=== PATIENT | female | born 1935 | race Caucasian/White ===

== ENCOUNTER 2022-06-04 14:29 | Outpatient (CLI) | payer MEDICARE, OTHER, SELFPAY ==
--- NOTE | 2022-06-04 14:53 | XR_ITS ---
WS: [id number] Lumbar spine, 3 views, 06/04/2022 Clinical Data: Lumbar spinal stenosis Comparison: None. Findings: No compression fractures or subluxation is seen. There is degenerative disc narrowing between L4-L5 a nd L5-S1. There is minimal osteoarthritic spurring at L4 and L5. There is diffuse osteoporosis of the lumbar vertebral bodies. The transverse processes and SI joints are normal. There is a minimal levoscoliosis of the lumbar spine. XR/XR lumbar spine 2-3V* [id number] Impression: 1. 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 2. Osteoporosis and minimal levoscoliosis of the lumbar spine.
== END 2022-06-04 14:30 | disposition home or self-care (01) ==
LOC: RAD 14:43
PROVIDERS: PCP Family Medicine; Visit Provider Family Medicine
DX: M48.061 Spinal stenosis, lumbar region without neurogenic claudication; M81.0 Age-related osteoporosis without current pathological fracture; M41.86 Other forms of scoliosis, lumbar region; G45.9 Transient cerebral ischemic attack, unspecified; Z76.89 Persons encountering health services in other specified circumstances; H01.009 Unspecified blepharitis unspecified eye, unspecified eyelid; B07.9 Viral wart, unspecified
CPT/HCPCS: 72100; 80053; 80061; 84443; 85025

== ENCOUNTER 2022-08-13 10:26 | Emergency (ER) | payer MEDICARE, OTHER, SELFPAY ==
[2022-08-13 10:28] VITALS: BP 194/93; PULSE 116; RESP 18; TEMP 36.9; O2SAT 94
[2022-08-13 10:36] VITALS: BP 194/93; O2SAT 92
--- NOTE | 2022-08-13 10:42 | XRR_ITS ---
PROCEDURE INFORMATION: Exam: XR Left Knee Exam date and time: 08/13/2022 10:48 AM Age: 87 years old Clinical indication: Pain; Knee; Left TECHNIQUE: Imaging protocol: Radiologic exam of the left knee. Views: 3 views. COMPARISON: No relevant prior studies available. FINDINGS: Bones/joints: Normal. Soft tissues: Normal. XR/XR knee LT 3V* [id number] IMPRESSION: No acute findings.
--- NOTE | 2022-08-13 10:42 | XR_ITS ---
WS: [id number] Exam: XR chest 1V portable [id number] Date/Time of Exam: 08/13/2022 10:43 AM Reason For Exam: dyspnea/cough No priors. Findings: The lungs are clear and fully expanded. Costophrenic angles are sharp. No infiltrates. Bronchovascula r relief appears normal. Cardiac silhouette is unremarkable. Bony elements are intact. XR/XR chest 1V portable [id number] IMPRESSION: Unremarkable chest radiograph.
[2022-08-13 10:46] VITALS: BP 175/86; BP 187/101; BP 190/116
--- NOTE | 2022-08-13 10:47 | ED_ITS ---
HPI - Fall General: Chief Complaint: Fall Stated Complaint: WEAKNESS/ FALLS Time Seen by Provider: 08/13/22 10:27 Source: patient and family Mode of arrival: EMS History of Present Illness: 87-year-old female presents to the emergency room with complaint of left knee pain. She fell at home a couple of days ago and then evidently was on the toilet today and could not get up had left knee pain her left knee has been bothering her since she fell. In the nurses note it said she fell at 830 this morning but they told me it was a couple of days ago and she just could not get up and get around on it she is also been very weak she denies any chest pain or abdominal pain. No dysuria urgency or frequency no vomiting or diarrhea. No other injury did not strike her head did not lose consciousness. MD complaint: fall Onset (ago): day(s) (+3) Fall from: standing Fall witnessed: yes, by family Place fall occurred: home Loss of consciousness: None Prolonged down time: no Context: tripped/slipped Location of injury - extremities: Left: knee Severity: mild Associated symptoms-after fall: Reports difficulty walking and weakness; Denies abdominal pain, chest pain, confusion, headache(s), hematuria, lightheadedness, neck pain, numbness, short of breath or vertigo Review of Systems Const: Reports: fatigue; Denies: fever(s), chills, body aches, change in appetite or malaise ENMT: Denies: throat pain, ear or mastoid pain, nasal discharge or nasal congestion Card: Denies: chest pain or lightheadedness Resp: Denies: dyspnea, productive cough or non-productive cough GI: Denies: abdominal pain, nausea, vomiting, diarrhea or constipation : Denies: dysuria, urinary frequency, urinary urgency or hematuria Musc: Denies: neck pain Skin/Breast: Denies: rash or pruritus Neuro: Reports: difficulty walking; Denies: headache(s), vertigo or confusion PFS ED PFSH: Family History Other CAD (coronary artery disease) Cancer Social History Smoking and tobacco status: never smoked Alcohol intake: never Adopted: No Caregiver/support person: No Lives independently: No Household members: family Housing: House Physical Exam Const: GENERAL APPEARANCE: cooperative and comfortable ORIENTATION/CONSCIOUSNESS: Yes awake, Yes oriented to person, Yes oriented to place and Yes oriented to time HENMT: COMMON NORMALS: normocephalic, atraumatic and hearing grossly normal bilaterally HEAD & SCALP: normocephalic and atraumatic Resp: COMMON NORMALS: normal respiratory effort, No retractions, No use of accessory muscles and clear to auscultation bilaterally AUSCULTATION: clear to auscultation bilaterally Cardio: COMMON NORMALS: regular rate, regular rhythm and No murmurs present (Cardio) RATE: regular rate RHYTHM: regular rhythm GI: COMMON NORMALS: Soft to palpation and No hepatosplenomegaly present AUSCULTATION: Yes normoactive bowel sounds PALPATION: Yes Soft to palpation, No Tenderness to palpation present (GI), No Guarding due to palpation present (GI) and Yes No hepatosplenomegaly present Extremity: COMMON NORMALS: normal to inspection, capillary refill normal, no clubbing, cyanosis or edema, no calf tenderness and no pedal edema Neuro: SENSORIUM/ORIENTATION: Yes oriented to person, Yes oriented to place and Yes oriented to time Skin: COMMON NORMALS: no rashes or lesions noted GENERAL SKIN EXAM: no rashes or lesions noted Course Vital Signs: Vital signs: Vital Signs Temperature 98.5 F 08/13/22 10:28 Pulse Rate 100 08/13/22 13:10 Respiratory Rate 18 08/13/22 10:28 Blood Pressure 190/116 08/13/22 10:46 Pulse Oximetry 94 08/13/22 13:10 Oxygen Delivery Me thod 08/13/22 13:10 MDM - Fall Medical Decision Making No acute fractures normal exam we will discharge patient home. Blood pressure is elevated start her on Toprol follow-up with her primary care doctor within the week. Reviewed labs imaging and EKG on the chart and reviewed with patient and family. Medical Records I reviewed the patient's medical records. Lab Data I reviewed the patient's lab results. 08/13/22 10:30 08/13/22 10:30 Radiology Impressions Chest X-Ray 08/13/22 10:42 IMPRESSION: Unremarkable chest radiograph. Knee X-Ray 08/13/22 10:42 IMPRESSION: No acute findings. Laboratory Results WBC 7.8 10^3/uL (4.0-10.0) 08/13/22 10:30 RBC 4.14 10^6/uL (4.1-5.3) 08/13/22 10:30 Hgb 13.6 g/dL (11.5-15.3) 08/13/22 10:30 Hct 41.5 % (37.0-47.0) 08/13/22 10:30 MCV 100.2 fl (81-99) H 08/13/22 10:30 MCH 32.9 pg (28.0-34.0) 08/13/22 10:30 MCHC 32.8 g/dL (30.0-36.0) 08/13/22 10:30 RDW 12.8 % (12.1-15.1) 08/13/22 10:30 Plt Count 183 10^3/cmm (130-400) 08/13/22 10:30 MPV 9.9 fL (7.4-10.4) 08/13/22 10:30 Neut % (Auto) 75.7 % 08/13/22 10:30 Lymph % (Auto) 10.7 % 08/13/22 10:30 [place] % (Auto) 12.6 % 08/13/22 10:30 Eos % (Auto) 0.3 % 08/13/22 10:30 Baso % (Auto) 0.4 % 08/13/22 10:30 Neut # (Auto) 5.91 10^3/uL (1.8-7.7) 08/13/22 10:30 Lymph # (Auto) 0.8 10^3/uL (0.8-4.8) 08/13/22 10:30 [place] # (Auto) 1.0 10^3/uL (0.2-0.9) H 08/13/22 10:30 Eos # (Auto) 0.0 10^3/uL (0.0-0.8) 08/13/22 10:30 Baso # (Auto) 0.0 10^3/uL (0.0-0.1) 08/13/22 10:30 Nucleated RBC % (auto) 0 % 08/13/22 10:30 Nucleated RBCs # 0.0 /100WBC 08/13/22 10:30 Sodium 138 mmol/L (136-145) 08/13/22 10:30 Potassium 4.1 mmol/L (3.5-5.1) 08/13/22 10:30 Chloride 104 mmol/L (98-107) 08/13/22 10:30 Carbon Dioxide 23 mmol/L (22-29) 08/13/22 10:30 Anion Gap 15.1 (5-19) 08/13/22 10:30 BUN 14 mg/dL (8-23) 08/13/22 10:30 Creatinine 0.7 mg/dL (0.5-0.9) 08/13/22 10:30 GFR Calculation Not Reportable 08/13/22 10:30 Glucose 103 mg/dL (65-115) 08/13/22 10:30 Calculated Osmolality 287 mOsm/kg (285-295) 08/13/22 10:30 Calcium 8.3 mg/dL (8.5-10.5) L 08/13/22 10:30 Total Bilirubin 0.3 mg/dL (0.15-1.2) 08/13/22 10:30 AST 32 U/L (0-32) 08/13/22 10:30 ALT 28 U/L (0-33) 08/13/22 10:30 Alkaline Phosphatase 59 U/L (35-105) 08/13/22 10:30 Total Protein 6.2 g/dL (6.6-8.7) L 08/13/22 10:30 Albumin 3.7 g/dL (3.5-5.2) 08/13/22 10:30 Globulin 2.5 g/dL (1.3-4.6) 08/13/22 10:30 Urine Color Yellow (Yellow) 08/13/22 12:05 Urine Appearance Clear (CLEAR) 08/13/22 12:05 Urine pH 5 (5-7) 08/13/22 12:05 Ur Specific [place] 1.025 (1.005-1.030) 08/13/22 12:05 Urine Protein Neg (Negative) 08/13/22 12:05 Urine Glucose (UA) Norm (Normal) 08/13/22 12:05 Urine Ketones 1+ (Negative) H 08/13/22 12:05 Urine Blood Neg (Negative) 08/13/22 12:05 Urine Nitrate Negative (Negative) 08/13/22 12:05 Urine Bilirubin Neg (Negative) 08/13/22 12:05 Urine Urobilinogen Norm mg/dL (Negative) 08/13/22 12:05 Ur Leukocyte Esterase Negative (Negative) 08/13/22 12:05 Discharge Plan Discharge Patient Disposition: Home Clinical Impression: HTN (hypertension), Weakness, Knee pain, left Condition: Stable Prescriptions: New Toprol XL 25 mg tablet extended release 24 hr 25 mg PO DAILY Qty: 30 0RF No Action meloxicam 15 mg tablet 15 mg PO DAILY Qty: 30 5RF tizanidine 4 mg tablet See Rx Instructions .ROUTE .COMPLEX Qty: 30 2RF Dose Instruction: TAKE 1 TABLET ORALLY TWICE A DAY NEEDED FOR MUSCLE SPASTICITY Rx Instructions: TAKE 1 TABLET ORALLY TWICE A DAY NEEDED FOR MUSCLE SPASTICITY Discharge Orders: Discharge ED (Routine); Ordered 08/13/22 Ordered By: Charles Stover Referrals: Ravi Charlton, [Primary Care Provider] - Discharge Diet: Usual diet Discharge Activity: Increase activity as tolerated Patient Instructions: Opioid Safety, Pain Management Activity Restrictions/Additional Instructions: You are seen for weakness, left knee pain and hypertension. Blood pressure improved later in the emergency room. Start on Toprol-XL 1 p.o. daily. Recommend that you follow-up with your primary care doctor if your knee continues to give you difficulty. Patient also discussed possibility of long term level of care with primary care doctor. Coding Level of Care Code ED Dimensional Inspector for Lawson Barron
[2022-08-13 10:59] LABS: Basophils % 0.4 %; Eosinophils % 0.3 %; Hematocrit 41.5 % (37.0-47.0); Hemoglobin 13.6 g/dL (11.5-15.3); Lymphocytes # 0.8 10^3/uL (0.8-4.8); Lymphocytes % 10.7 %; Mean Corpuscular HGB Conc 32.8 g/dL (30.0-36.0); Mean Corpuscular Hemoglobin 32.9 pg (28.0-34.0); Mean Corpuscular Volume 100.2 fl (81-99); Mean Platelet Volume 9.9 fL (7.4-10.4); Monocytes % 12.6 %; Neutrophils # 5.91 10^3/uL (1.8-7.7); Neutrophils % 75.7 %; Nucleated Red Blood Cells % 0 %; Platelet Count 183 10^3/cmm (130-400); Red Blood Count 4.14 10^6/uL (4.1-5.3); Red Cell Distribution Width 12.8 % (12.1-15.1); White Blood Count 7.8 10^3/uL (4.0-10.0)
--- NOTE | 2022-08-13 11:08 | ECG_ITS ---
[facility] Test Date: 2022-08-13 Pat Name: Beckie Jean Department: Room: Gender: Female Major Assembly Inspector: : 1935 Requested By: Charles Szymanski Order Number: [id number] Brayan MD: Lambert Fregoso M.D. Measurements Intervals [place] Rate: 113 P: 42 DC: 151 QRS: 22 QRSD: 88 T: 23 QT: 327 QTc: 449 Interpretive Statements SINUS TACHYCARDIA No previous ECG available for comparison Electronically Signed On 08-13-2022 11:27:40 CDT by Lambert Fregoso M.D. [id number]
[2022-08-13 11:23] LABS: Alanine Aminotransferase 28 U/L (0-33); Albumin Level 3.7 g/dL (3.5-5.2); Alkaline Phosphatase 59 U/L (35-105); Blood Urea Nitrogen 14 mg/dL (8-23); Calcium 8.3 mg/dL (8.5-10.5); Carbon Dioxide 23 mmol/L (22-29); Chloride 104 mmol/L (98-107); Globulin 2.5 g/dL (1.3-4.6); Glucose 103 mg/dL (65-115); Osmolality Calculated 287 mOsm/kg (285-295); Sodium 138 mmol/L (136-145); Total Bilirubin 0.3 mg/dL (0.15-1.2); Total Protein 6.2 g/dL (6.6-8.7)
[2022-08-13 11:24] LABS: Anion Gap 15.1 (5-19); Aspartate Amino Transferase 32 U/L (0-32); Potassium 4.1 mmol/L (3.5-5.1)
[2022-08-13 12:16] LABS: Add Urine Microscopic? NO; Charge for UA Resulting for Rev
[2022-08-13 12:20] LABS: Bilirubin Urine Neg (Negative); Blood Urine Neg (Negative); Glucose Urine UA Norm (Normal); Ketones Urine 1+ (Negative); Nitrate Urine Negative (Negative); Protein Urine Neg (Negative); Specific Gravity, Urine 1.025 (1.005-1.030); Urine Appearance Clear (CLEAR); Urine Color Yellow (Yellow); pH Urine 5 (5-7)
[2022-08-13 12:21] LABS: Leukocyte Esterase Urine Negative (Negative); Urobilinogen Urine Norm (Negative)
[2022-08-13 13:10] VITALS: PULSE 100; O2SAT 94
== END 2022-08-13 13:19 | disposition home or self-care (01) ==
PROVIDERS: Emergency Provider Family Medicine; PCP Family Medicine
DX: M25.562 Pain in left knee (principal); I10 Essential (primary) hypertension
CPT/HCPCS: 71045; 73562; 80053; 81003; 85025; 93005; 99285

== ENCOUNTER 2022-08-17 01:29 | Emergency (ER) | payer MEDICARE, OTHER, SELFPAY ==
[2022-08-17] VITALS (8 sets, daily range): BP systolic 142–199; BP diastolic 71–112; PULSE 71–105; RESP 16–18; TEMP 36.4; O2SAT 94–98; BMI 30.6
--- NOTE | 2022-08-17 01:41 | XRR_ITS ---
PROCEDURE INFORMATION: Exam: XR Chest Exam date and time: 08/17/2022 1:45 AM Age: 87 years old Clinical indication: Shortness of breath; Patient HX: C/O SOB TECHNIQUE: Imaging protocol: Radiologic exam of the chest. Views: 1 view. COMPARISON: CR XR chest 1V portable [id number] 08/13/2022 10:46 AM FINDINGS: Lungs: There is a background emphysema and pulmonary fibrosis. Pleural spaces: Unremarkable. No pleural effusion. No pneumothorax. Heart/Mediastinum: Unremarkable. No cardiomegaly. Bones/joints: Unremarkable. XR/XR chest 1V portable [id number] IMPRESSION: 1. There are no acute chest findings. 2. Background emphysema and pulmonary fibrosis. Otherwise stable appearance of the chest compared 08/13/2022.
--- NOTE | 2022-08-17 01:41 | ECG_ITS ---
[facility] Test Date: 2022-08-17 Pat Name: Beckie Jean Department: Room: Gender: Female Security Door Installer: : 1935 Requested By: John Hurd Order Number: [id number] Brayan MD: Lambert Fregoso M.D. Measurements Intervals [place] Rate: 74 P: 54 NM: 154 QRS: 27 QRSD: 89 T: 30 QT: 392 QTc: 437 Interpretive Statements SINUS RHYTHM WITH OCCASIONAL VENTRICULAR PREMATURE COMPLEXES Compared to ECG 08/13/2022 11:08:29 Ventricular premature complex(es) now present Sinus tachycardia no longer present Electronically Signed On 08-17-2022 15:53:55 CDT by Lambert Fregoso M.D. [id number]
--- NOTE | 2022-08-17 01:42 | W.ED.SOB ---
HPI - SOB/Dyspnea General: Chief Complaint: Shortness of Breath/Dyspnea Stated Complaint: SOB Time Seen by Provider: 08/17/22 01:29 Source: patient and EMS Mode of arrival: EMS Limitations: no limitations History of Present Illness: HPI Narrative: 87-year-old female who states of last 2 days she felt she had a viral illness states she has been having difficulty breathing not feeling well along with some slight wheezing does have a history of COPD states that she had some increased swelling of her legs and her dyspnea is worse when she lays flat she denies any chest pain denies any fever she is in no distress here able speak in full sentences. Associated symptoms: Deny abdominal pain, chest pain, fever(s), nausea or vomiting Review of Systems Const: Denies: fever(s), chills, body aches or change in appetite Eyes: Denies: blurry vision or eye discomfort ENMT: Denies: throat pain or dental pain Card: Denies: chest pain Resp: Reports: dyspnea and non-productive cough GI: Denies: abdominal pain, nausea, vomiting or diarrhea : Denies: dysuria Musc: Denies: neck pain or back pain Skin/Breast: Denies: rash Neuro: Denies: headache(s) Psych: Denies: depression Haim/Lymph: Denies: easy bruising All/Imm: Denies: urticaria PFSH ED PFSH: Medical History (Updated 08/17/22 @ 04:43 by John Hurd MD) HTN (hypertension) Family History Other CAD (coronary artery disease) Cancer Social History Smoking and tobacco status: never smoked Alcohol intake: never Adopted: No Caregiver/support person: No Lives independently: No Household members: family Housing: House Physical Exam Const: COMMON NORMALS: no acute distress, patient oriented x3 and healthy appearing HENMT: COMMON NORMALS: normocephalic and atraumatic HEAD & SCALP: normocephalic and atraumatic Eye: COMMON NORMALS: Equal, round and reactive pupils present and EOMs intact bilaterally PUPIL: Yes Equal, round and reactive pupils present Neck/C-Spine: COMMON NORMALS: full ROM and supple Chest: COMMONS NORMALS: normal inspection of the chest and normal palpation of entire chest wall Resp: COMMON NORMALS: normal respiratory effort, No retractions, No use of accessory muscles and clear to auscultation bilaterally AUSCULTATION: clear to auscultation bilaterally Cardio: COMMON NORMALS: regular rate, regular rhythm and No murmurs present (Cardio) RATE: regular rate RHYTHM: regular rhythm GI: COMMON NORMALS: Normal to inspection, nondistended, normoactive bowel sounds present, Soft to palpation, non-tender and no masses PALPATION: Yes Soft to palpation Extremity: COMMON NORMALS: full ROM NARRATIVE EXTREMITY EXAM: 2+ edema to bilateral ext Neuro: COMMON NORMALS: patient oriented x3, moves all extremities and no focal motor deficits Psych: COMMON NORMALS: mental status grossly normal, Normal thought process present and cooperative THOUGHT PROCESS: Normal thought process present Skin: COMMON NORMALS: no rashes or lesions noted and no wounds GENERAL SKIN EXAM: no rashes or lesions noted Course Vital Signs: Vital signs: Vital Signs Temperature 97.5 F L 08/17/22 01:31 Pulse Rate 85 08/17/22 04:00 Respiratory Rate 16 08/17/22 04:00 Blood Pressure 178/94 08/17/22 04:00 Pulse Oximetry 95 08/17/22 04:00 Oxygen Delivery Me thod 08/17/22 02:34 MDM - SOB/Dyspnea Medical Decision Making 87-year-old female presented here with shortness of breath she had been well-appearing here in no distress does have a history of COPD her BNP is little elevated to do she does have some leg edema did give her a dose of Lasix here we will place her on Lasix for home she is to follow-up with PCP and return if worsening she understands agrees to plan. Lab Data 08/17/22 02:11 08/17/22 02:11 Labs/Radiology: Radiology Impressions Chest X-Ray 08/17/22 01:41 IMPRESSION: 1. There are no acute chest findings. 2. Background emphysema and pulmonary fibrosis. Otherwise stable appearance of the chest compared 08/13/2022. Laboratory Results WBC 7.6 10^3/uL (4.0-10.0) 08/17/22 02:11 RBC 4.09 10^6/uL (4.1-5.3) L 08/17/22 02:11 Hgb 13.1 g/dL (11.5-15.3) 08/17/22 02:11 Hct 40.2 % (37.0-47.0) 08/17/22 02:11 MCV 98.3 fl (81-99) 08/17/22 02:11 MCH 32.0 pg (28.0-34.0) 08/17/22 02:11 MCHC 32.6 g/dL (30.0-36.0) 08/17/22 02:11 RDW 12.8 % (12.1-15.1) 08/17/22 02:11 Plt Count 199 10^3/cmm (130-400) 08/17/22 02:11 MPV 10.0 fL (7.4-10.4) 08/17/22 02:11 Lymph % (Auto) Not Reportable 08/17/22 02:11 [place] % (Auto) Not Reportable 08/17/22 02:11 Lymph # (Auto) Not Reportable 08/17/22 02:11 [place] # (Auto) Not Reportable 08/17/22 02:11 Total Counted 100 (0-100) 08/17/22 02:11 Atypical Lymphs % 2.0 % (0-5) 08/17/22 02:11 Absolute Neutrophils 3.6 10^3/cmm (1.4-6.5) 08/17/22 02:11 Segmented Neutrophils 46 % 08/17/22 02:11 Abs Segm Neuts (Man) 3.5 10/cmm (1.6-7.1) 08/17/22 02:11 Band Neutrophils 2.0 % 08/17/22 02:11 Abs Band Neuts (Man) 0.2 10^3/cmm (0.0-1.2) 08/17/22 02:11 Absolute Lymphocytes 3.3 10^3/cmm (1.2-3.4) 08/17/22 02:11 Lymphocytes (Manual) 41 % 08/17/22 02:11 Monocytes (Manual) 7.0 % 08/17/22 02:11 Absolute Monocytes 0.5 10^3/cmm (0.1-0.6) 08/17/22 02:11 Eosinophils (Manual) 1 % 08/17/22 02:11 Absolute Eosinophils 0.0 10^3/cmm (0.0-0.7) 08/17/22 02:11 Basophils (Manual) 0.0 % 08/17/22 02:11 Absolute Basophils 0.0 10^3/cmm (0.0-0.2) 08/17/22 02:11 Metamyelocytes 1.0 % 08/17/22 02:11 Platelet Estimate Normal (Normal) 08/17/22 02:11 Giant Platelets 1+ H 08/17/22 02:11 Macrocytosis Trace 08/17/22 02:11 Sodium 138 mmol/L (136-145) 08/17/22 02:11 Potassium 4.0 mmol/L (3.5-5.1) 08/17/22 02:11 Chloride 105 mmol/L (98-107) 08/17/22 02:11 Carbon Dioxide 23 mmol/L (22-29) 08/17/22 02:11 Anion Gap 14.0 (5-19) 08/17/22 02:11 BUN 22 mg/dL (8-23) 08/17/22 02:11 Creatinine 0.7 mg/dL (0.5-0.9) 08/17/22 02:11 GFR Calculation Not Reportable 08/17/22 02:11 Glucose 97 mg/dL (65-115) 08/17/22 02:11 Calculated Osmolality 289 mOsm/kg (285-295) 08/17/22 02:11 Calcium 9.0 mg/dL (8.5-10.5) 08/17/22 02:11 Total Bilirubin 0.2 mg/dL (0.15-1.2) 08/17/22 02:11 AST 22 U/L (0-32) 08/17/22 02:11 ALT 22 U/L (0-33) 08/17/22 02:11 Alkaline Phosphatase 55 U/L (35-105) 08/17/22 02:11 Troponin T Baseline 11 ng/L (0-10) H 08/17/22 02:11 Troponin T 120 Minute 10.99 ng/L (0-10) H 08/17/22 04:00 Delta Troponin T -0.01 ABS# (0-10) L 08/17/22 04:00 NT-Pro-B Natriuret Pep 1680 pg/mL (0-450) H 08/17/22 02:11 Total Protein 6.5 g/dL (6.6-8.7) L 08/17/22 02:11 Albumin 3.7 g/dL (3.5-5.2) 08/17/22 02:11 Globulin 2.8 g/dL (1.3-4.6) 08/17/22 02:11 SARS-CoV-2 Ag (Rapid) negative (Negative) 08/17/22 01:46 EKG Data EKG 1: I personally reviewed and interpreted this EKG as follows: EKG Interpretation Date: 08/17/22 EKG interpretation time: 01:55 Interpretation: nsr hr [address] or t wave abnormalities qrs 89 qtc 420 EKG 2: I personally reviewed and interpreted this EKG as follows: EKG Interpretation Date: 08/17/22 EKG interpretation time: 03:39 Interpretation: nsr hr [address] or t wave abnormalities qrs 85 qtc 419 Discharge Plan Discharge Patient Disposition: Home Clinical Impression: Dyspnea Condition: Stable Prescriptions: New Lasix 20 mg tablet 20 mg PO DAILY Qty: 30 0RF No Action meloxicam 15 mg tablet 15 mg PO DAILY Qty: 30 5RF tizanidine 4 mg tablet See Rx Instructions .ROUTE .COMPLEX Qty: 30 2RF Dose Instruction: TAKE 1 TABLET ORALLY TWICE A DAY NEEDED FOR MUSCLE SPASTICITY Rx Instructions: TAKE 1 TABLET ORALLY TWICE A DAY NEEDED FOR MUSCLE SPASTICITY Toprol XL 25 mg tablet extended release 24 hr 25 mg PO DAILY Qty: 30 0RF Discharge Orders: Discharge ED (Routine); Ordered 08/17/22 Ordered By: John Hurd Referrals: Ravi Charlton DO [Primary Care Provider] - 1-3 days Discharge Diet: Advance as tolerated Discharge Activity: Resume usual activity Patient Instructions: Dyspnea (ED) Coding Level of Care Code ED Evp And Chief Operating Officer for Lawson Barron
[2022-08-17] MEDS: hyDRALAzine 20 mg/mL INJ 1 mL 5 MG IVP (02:13)
[2022-08-17 02:27] LABS: SARS Covid-2 Antigen negative (Negative)
[2022-08-17 02:32] LABS: Hematocrit 40.2 % (37.0-47.0); Hemoglobin 13.1 g/dL (11.5-15.3); Mean Corpuscular HGB Conc 32.6 g/dL (30.0-36.0); Mean Corpuscular Volume 98.3 fl (81-99); Platelet Count 199 10^3/cmm (130-400); Red Blood Count 4.09 10^6/uL (4.1-5.3); Red Cell Distribution Width 12.8 % (12.1-15.1); White Blood Count 7.6 10^3/uL (4.0-10.0)
[2022-08-17] MEDS: albuterol 2.5 mg/3 mL Neb INHALATION (02:32)
[2022-08-17 02:46] LABS: Troponin(5th) Baseline 11 ng/L (0-10)
[2022-08-17 02:53] LABS: Alanine Aminotransferase 22 U/L (0-33); Albumin Level 3.7 g/dL (3.5-5.2); Alkaline Phosphatase 55 U/L (35-105); Aspartate Amino Transferase 22 U/L (0-32); Blood Urea Nitrogen 22 mg/dL (8-23); Carbon Dioxide 23 mmol/L (22-29); Chloride 105 mmol/L (98-107); Globulin 2.8 g/dL (1.3-4.6); Glucose 97 mg/dL (65-115); NT Pro B Type Natriuretic Pept 1680 pg/mL (0-450); Osmolality Calculated 289 mOsm/kg (285-295); Sodium 138 mmol/L (136-145); Total Bilirubin 0.2 mg/dL (0.15-1.2); Total Protein 6.5 g/dL (6.6-8.7)
[2022-08-17] MEDS: dexamethasone 10 mg/mL INJ IVP (03:16)
[2022-08-17 03:37] LABS: Absolute Segmented Neutrophil 3.5 10/cmm (1.6-7.1); Band Neutrophils Absolute 0.2 10^3/cmm (0.0-1.2); Eosinophils 1 %; Lymphocytes 41 %; Monocytes Absolute 0.5 10^3/cmm (0.1-0.6); Segmented Neutrophils 46 %; Total Cells Counted 100 (0-100)
[2022-08-17 03:38] LABS: Absolute Neutrophil 3.6 10^3/cmm (1.4-6.5); Giant Platelets 1+; Lymphocytes Absolute 3.3 10^3/cmm (1.2-3.4); Platelet Estimate Normal (Normal)
[2022-08-17 03:39] LABS: Macrocytosis Trace
--- NOTE | 2022-08-17 03:41 | ECG_ITS ---
[facility] Test Date: 2022-08-17 Pat Name: Beckie Jean Department: Room: Gender: Female Health Equipment Servicer: : 1935 Requested By: John Hurd Order Number: [id number] Brayan MD: Lambert Fregoso M.D. Measurements Intervals [place] Rate: 88 P: 74 NM: 155 QRS: 28 QRSD: 85 T: 37 QT: 373 QTc: 453 Interpretive Statements SINUS RHYTHM WITH OCCASIONAL VENTRICULAR PREMATURE COMPLEXES WITH OCCASIONAL SUPRAVENTRICULAR PREMATURE COMPLEXES Compared to ECG 08/17/2022 01:55:35 No significant changes Electronically Signed On 08-17-2022 15:55:07 CDT by Lambert Fregoso M.D. [id number]
[2022-08-17] MEDS: FUROsemide 10 mg/mL SDV 4mL 40 MG IVP (03:46)
[2022-08-17] MEDS: hyDRALAzine 20 mg/mL INJ 1 mL 10 MG IVP (04:10)
[2022-08-17 04:32] LABS: Troponin 5 2HR 10.99 ng/L (0-10)
[2022-08-17 04:36] LABS: Troponin 5 2HR Delta -0.01 ABS# (0-10)
== END 2022-08-17 05:08 | disposition home or self-care (01) ==
PROVIDERS: Emergency Provider Emergency Medicine; PCP Family Medicine
DX: R06.00 Dyspnea, unspecified (principal); Z20.822 Contact with and (suspected) exposure to COVID-19; I10 Essential (primary) hypertension
CPT/HCPCS: 71045; 80053; 83880; 84484; 85007; 85025; 87426; 93005; 94640; 96374; 96375; 96376; 99285; J0360; J1100; J1940; J7613

== ENCOUNTER → 2022-09-18 09:21 | Outpatient (BNVA) | payer MEDICARE, OTHER, SELFPAY | PROVIDERS: PCP Family Medicine; Referring Provider Family Medicine; Visit Provider Anesthesiology Pain Medicine | DX: M48.061 Spinal stenosis, lumbar region without neurogenic claudication (principal) | CPT/HCPCS: 99204 ==

== ENCOUNTER 2022-10-05 11:31 | Outpatient (CLI) | payer MEDICARE, OTHER, SELFPAY ==
--- NOTE | 2022-10-05 11:45 | MR_ITS ---
WS: [id number] MRI LUMBAR SPINE NONCONTRAST TECHNIQUE: Sagittal T1, T2 and STIR imaging. Axial T1 and T2 imaging. CLINICAL INFORMATION: M48.061 - Spinal stenosis, lumbar region without neurogen... COMPARISON: None. FINDINGS: Mild lumbar curve. No acute compression. Disc space narrowing worse L5-S1 with endplate degenerative changes. L1-L2: Mild facet arthropathy. Spinal canal and foramen are patent. L2-L3: No significant disc bulging. Moderate facet arthropathy. Mild LEFT foraminal narrowing. L3-L4: Mild annular bulging. Slight impingement traversing RIGHT L4 nerve root. Moderate facet arthro alba. Foramen are patent. L4-L5: Mild annular bulging. Slight impingement traversing L5 nerve roots bilaterally. Moderate facet arthropathy. Mild LEFT foraminal narrowing. L5-S1: Disc desiccation. Mild disc bulging with shallow central protrusion. Slight impingement rosalba sing S1 nerve roots bilaterally. Moderate facet arthropathy. Foramen are patent. Incidental hemangioma thoracic spine at T8 vertebral body. Visualized pelvic bony structures: Normal. Paravertebral soft tissues: Normal. MR/MR lumbar spine wo con* [id number] IMPRESSION: 1. Mild lumbar curve. No acute compression. 2. Mild annular bulging L4-L5 with slight impingement traversing L5 nerve root s bilaterally. Mild LEFT foraminal narrowing. 3. Shallow central protrusion L5-S1 slightly contacts the traversing LEFT grea ter than RIGHT S1 nerve roots. 4. Annular bulging L3-L4 slight impingement traversing RIGHT L4 nerve root in the subarticular recess. 5. Tiny LEFT foraminal protrusion L2-L3 with mild LEFT foraminal narrowing. 6. Moderate facet arthropathy L3-L4 and L4-L5.
--- NOTE | 2022-10-05 12:18 | XR_ITS ---
WS: [id number] Lumbar spine with flexion, extension lateral, 10/05/2022 Clinical Data: M48.061 - Spinal stenosis, lumbar region without neurogen... Comparison: Lumbar spine, 06/04/2022 Findings: No compression fractures or subluxation is seen. There is degenerative disc narrowing at L4-L5 and L5 -S1 with anterior spurring.. No limitation of motion or subluxation is seen. XR/XR lumbar spine f/e only [id number] Impression: 1. Degenerative disc narrowing at L4-L5 and L5-S1 with minimal anterior spurrin g 2. Negative for limitation of motion on flexion or extension.
== END 2022-10-05 11:32 | disposition home or self-care (01) ==
LOC: RAD 11:34
PROVIDERS: PCP Family Medicine; Visit Provider Anesthesiology Pain Medicine
DX: M48.07 Spinal stenosis, lumbosacral region (principal); M51.37 Other intervertebral disc degeneration, lumbosacral region
CPT/HCPCS: 72120; 72148; 99204

== ENCOUNTER → 2022-10-22 10:08 | Outpatient (BNVA) | payer MEDICARE, OTHER, SELFPAY | PROVIDERS: PCP Family Medicine; Visit Provider Anesthesiology Pain Medicine | DX: M48.061 Spinal stenosis, lumbar region without neurogenic claudication (principal); M51.37 Other intervertebral disc degeneration, lumbosacral region | CPT/HCPCS: 99215 ==

== ENCOUNTER 2022-11-27 06:00 | Outpatient (RCR) | payer MEDICARE, OTHER, SELFPAY | END 2022-12-17 23:59 | disposition home or self-care (01) | LOC: TPT 06:00 | PROVIDERS: Visit Provider Anesthesiology Pain Medicine | DX: M54.50 Low back pain, unspecified (principal); G89.29 Other chronic pain | CPT/HCPCS: 97110; 97116; 97163 ==

== ENCOUNTER 2022-12-28 15:20 | Inpatient (IN) | payer MEDICARE, OTHER, SELFPAY ==
[2022-12-28] VITALS (7 sets, daily range): BP systolic 161–202; BP diastolic 70–128; PULSE 74–98; RESP 16–18; TEMP 36.7–37; O2SAT 92–97; BMI 35.9
--- NOTE | 2022-12-28 15:24 | W.ED.AMS ---
HPI - Altered Mental Status General: Chief Complaint: Altered Mental Status Stated Complaint: AMS Time Seen by Provider: 12/28/22 15:24 Limitations: altered mental status History of Present Illness: Ms. Jean is an 87-year-old lady with, per chart review hypertension and possible TIAs presenting the emergency department for altered mental status. Apparently last known normal per EMS report was 11 AM. The patient herself seems to have limited insight and difficulty articulating exactly why she is here. Review of Systems General: Reports: ROS unobtainable due to mental status PFSH ED PFSH: Medical History (Updated 12/31/22 @ 19:54 by Bay العلي MD) Blepharitis Candidal intertrigo Establishing care with new doctor, encounter for HTN (hypertension) Lumbar back pain Lumbar spinal stenosis Verruca vulgaris Family History Other CAD (coronary artery disease) Cancer Social History (Updated 12/28/22 @ 23:05 by Vince Waters MD) Smoking and tobacco status: never smoked Alcohol intake: never Adopted: No Caregiver/support person: No Lives independently: No Household members: other Housing: [facility] Physical Exam Const: COMMON NORMALS: alert GENERAL APPEARANCE: cooperative and well developed HENMT: COMMON NORMALS: normocephalic and atraumatic HEAD & SCALP: normocephalic and atraumatic Eye: COMMON NORMALS: conjunctivae normal CONJUNCTIVA: Yes conjunctivae normal SCLERA: sclerae normal Neck/C-Spine: COMMON NORMALS: supple GENERAL: Yes trachea midline Resp: COMMON NORMALS: clear to auscultation bilaterally EFFORT & INSPECTION: Yes able to speak in complete sentences AUSCULTATION: clear to auscultation bilaterally Cardio: COMMON NORMALS: regular rate and regular rhythm RATE: regular rate RHYTHM: regular rhythm GI: COMMON NORMALS: Soft to palpation PALPATION: Yes Soft to palpation and No Tenderness to palpation present (GI) Extremity: GENERAL: Yes normal exam except as noted and No edema Neuro: COMMON NORMALS: moves all extremities SENSORIUM/ORIENTATION: Yes alert and Yes Orientation impaired Course Vital Signs: Vital signs: Vital Signs Temperature 97.8 F 01/01/23 13:51 Pulse Rate 78 01/01/23 13:51 Respiratory Rate 16 01/01/23 13:51 Blood Pressure 124/66 01/01/23 13:51 Pulse Oximetry 95 01/01/23 13:51 Oxygen Delivery Me thod Room Air 01/01/23 12:00 MDM - Altered Mental Status Medical Decision Making 87-year-old lady presenting with mental status change. Initial NIHSS 6 however patient is outside of tPA window. Primarily appears to have expressive and receptive aphasia as well as dysarthric speech and possible facial droop. Stroke activation called. Patient evaluated by neurology. Per collateral history provided by family upon their arrival studies findings are chronic. CT head negative for acute intracranial hemorrhage or mass. EKG demonstrates sinus tachycardia with nonspecific ST segment abnormalities, no STEMI. Labs with minimal leukocytosis, normal hemoglobin. Metabolic panel without clear derangement to explain symptoms. Negative range 2-hour delta troponin. Patient does not have UTI. Given history and exam neurology recommends initiation of keppra BID 500 mg. Additionally treated with antibiotics in the emergency room. The results of ED evaluation were discussed with the patient including plan for admission due to requirement for level of care not available if discharged to prevent significant worsening/deterioration. Patient agreeable with plan. Discussed with hospitalist service who was agreeable to admit patient. Medical Records I reviewed the patient's medical records. Lab Data I reviewed the patient's lab results. 12/30/22 05:33 12/30/22 05:33 Radiology Impressions Head/Neck CTA 12/28/22 18:10 IMPRESSION: 1. Patent anterior circulation branches. 2. The non dominant left vertebral artery terminates in the PICA with age-indeterminate occlusion beyond this point - potentially chronic; correlate with patient's symptoms. The basilar artery is small in caliber with moderate to high-grade multifocal stenoses distally. Both reconciliation manager has anatomic variant origin. IMPRESSION: No occlusion or significant stenosis. REFERENCES: NASCET CRITERIA. The degree of stenosis in the cervical segment of the internal carotid artery is based on NASCET criteria. Normal is no stenosis. Mild is less than 50% stenosis. Moderate is 50-69% stenosis. Severe is 70% to 99% stenosis. Total occlusion is no detectable patent lumen. ADDENDUM: 12/28/221906 Findings were discussed with Dr. Galan at 12/28/2022 7:05 PM CDT. Head MRI 12/29/22 18:12 IMPRESSION: 1. No evidence of acute intracranial abnormality. No evidence of acute infarction, hemorrhage, or mass. 2. Atrophy and microvascular disease. Laboratory Results WBC 11.3 10^3/uL (4.0-10.0) H 12/28/22 15:46 RBC 4.44 10^6/uL (4.1-5.3) 12/28/22 15:46 Hgb 14.1 g/dL (11.5-15.3) 12/28/22 15:46 Hct 43.5 % (37.0-47.0) 12/28/22 15:46 MCV 98.0 fl (81-99) 12/28/22 15:46 MCH 31.8 pg (28.0-34.0) 12/28/22 15:46 MCHC 32.4 g/dL (30.0-36.0) 12/28/22 15:46 RDW 13.6 % (12.1-15.1) 12/28/22 15:46 Plt Count 260 10^3/cmm (130-400) 12/28/22 15:46 MPV 9.7 fL (7.4-10.4) 12/28/22 15:46 Neut % (Auto) 72.5 % 12/28/22 15:46 Lymph % (Auto) 18.1 % 12/28/22 15:46 [place] % (Auto) 8.1 % 12/28/22 15:46 Eos % (Auto) 0.5 % 12/28/22 15:46 Baso % (Auto) 0.4 % 12/28/22 15:46 Neut # (Auto) 8.23 10^3/uL (1.8-7.7) H 12/28/22 15:46 Lymph # (Auto) 2.1 10^3/uL (0.8-4.8) 12/28/22 15:46 Blackford # (Auto) 0.9 10^3/uL (0.2-0.9) 12/28/22 15:46 Eos # (Auto) 0.1 10^3/uL (0.0-0.8) 12/28/22 15:46 Baso # (Auto) 0.0 10^3/uL (0.0-0.1) 12/28/22 15:46 Nucleated RBC % (auto) 0 % 12/28/22 15:46 Nucleated RBCs # 0.0 /100WBC 12/28/22 15:46 PT 13.20 SECONDS (12.1-14.9) 12/28/22 15:46 INR 0.97 (0.8-1.2) 12/28/22 15:46 APTT 24.3 SECONDS (23.9-36.7) 12/28/22 15:46 Sodium 139 mmol/L (136-145) 12/28/22 15:46 Potassium 4.2 mmol/L (3.5-5.1) 12/28/22 15:46 Chloride 102 mmol/L (98-107) 12/28/22 15:46 Carbon Dioxide 26 mmol/L (22-29) 12/28/22 15:46 Anion Gap 15.2 (5-19) 12/28/22 15:46 BUN 16 mg/dL (8-23) 12/28/22 15:46 Creatinine 0.5 mg/dL (0.5-0.9) 12/28/22 15:46 GFR Calculation Not Reportable 12/28/22 15:46 Glucose 95 mg/dL (65-115) 12/28/22 15:46 POC Glucose 94 mg/dL (70-110) 12/28/22 15:30 Calculated Osmolality 289 mOsm/kg (285-295) 12/28/22 15:46 Calcium 9.3 mg/dL (8.5-10.5) 12/28/22 15:46 Iron 78 ug/dL (37-145) 12/28/22 15:46 TIBC 346 mcg/dl 12/28/22 15:46 % Saturation 22.5 % (20-50) 12/28/22 15:46 Unsat Iron Binding 268 ug/dL (112-347) 12/28/22 15:46 Total Bilirubin 0.3 mg/dL (0.15-1.2) 12/28/22 15:46 AST 16 U/L (0-32) 12/28/22 15:46 ALT 17 U/L (0-33) 12/28/22 15:46 Alkaline Phosphatase 64 U/L (35-105) 12/28/22 15:46 Troponin T Baseline 19 ng/L (0-10) H 12/28/22 15:46 Troponin T 120 Minute 15.99 ng/L (0-10) H 12/28/22 17:45 Delta Troponin T -3.01 ABS# (0-10) L 12/28/22 17:45 NT-Pro-B Natriuret Pep 756 pg/mL (0-450) H 12/28/22 15:46 Total Protein 6.6 g/dL (6.6-8.7) 12/28/22 15:46 Albumin 4.1 g/dL (3.5-5.2) 12/28/22 15:46 Globulin 2.5 g/dL (1.3-4.6) 12/28/22 15:46 Vitamin B12 259 pg/mL (232-1245) 12/28/22 15:46 Procalcitonin 0.04 ng/mL (0-0.5) 12/28/22 17:45 TSH 1.05 uIU/mL (0.27-4.20) 12/28/22 15:46 Urine Color Yellow (Yellow) 12/28/22 17:20 Urine Appearance Clear (CLEAR) 12/28/22 17:20 Urine pH 7 (5-7) 12/28/22 17:20 Ur Specific Beatty 1.005 (1.005-1.030) 12/28/22 17:20 Urine Protein Neg (Negative) 12/28/22 17:20 Urine Glucose (UA) Norm (Normal) 12/28/22 17:20 Urine Ketones 1+ (Negative) H 12/28/22 17:20 Urine Blood 2+ (Negative) H 12/28/22 17:20 Urine Nitrate Positive (Negative) H 12/28/22 17:20 Urine Bilirubin Neg (Negative) 12/28/22 17:20 Urine Urobilinogen Norm mg/dL (Negative) 12/28/22 17:20 Ur Leukocyte Esterase Trace (Negative) H 12/28/22 17:20 Urine RBC 0-4 /hpf (0-2) H 12/28/22 17:20 Urine WBC 10-15 /hpf (0-5) H 12/28/22 17:20 Ur Squamous Epith Cells 0-4 /hpf (0-5) H 12/28/22 17:20 Amorphous Sediment Not Reportable 12/28/22 17:20 Urine Bacteria 4+ /hpf (NONE) H 12/28/22 17:20 Urine Mucus 1+ /hpf 12/28/22 17:20 Urine Opiates Screen Negative ng/mL (Negative) 12/28/22 17:20 Ur Barbiturates Screen Negative ng/mL (Negative) 12/28/22 17:20 Ur Phencyclidine Scrn Negative ng/mL (Negative) 12/28/22 17:20 Ur Amphetamines Screen Negative ng/mL (Negative) 12/28/22 17:20 U Benzodiazepines Scrn Negative ng/mL (Negative) 12/28/22 17:20 Urine Cocaine Screen Negative ng/mL (Negative) 12/28/22 17:20 U Marijuana (THC) Screen Negative ng/mL (Negative) 12/28/22 17:20 Ethyl Alcohol < 10 mg/dL (0-10) 12/28/22 15:46 RPR Nonreactive (Nonreactive) 12/28/22 15:46 Critical Care Time Critical Care Time: Critical Care Time: Yes Total Critical Care Time: 35 Attestation: Due to a high probability of clinically significant, possibly life threatening deterioration, the patient required my highest level of attention and preparedness to intervene emergently and I personally spent this critical care time directly and personally managing the patient. This critical care time included obtaining a history; examining the patient; pulse oximetry; ordering and review of laboratory and imaging studies; arranging urgent treatment with development of a management plan; evaluation of patient's response to treatment; frequent reassessment; and, discussions with other providers as applicable. It was exclusive of separately billable procedures. Primary system involved is neuro Discharge Plan Discharge Patient Disposition: Admitted As Inpatient Admit Provider: Vince Waters Clinical Impression: Stroke, Complicated urinary tract infection Condition: Stable Discharge Diet: Advance as tolerated, Usual diet and Cardiac Discharge Activity: Resume usual activity, Increase activity as tolerated and Return to work/school after cleared by PCP/Specialist Coding Level of Care Code ED Steward/Stewardess Economy Class for Lawson Barron
--- NOTE | 2022-12-28 15:31 | CT_ITS ---
WS: [id number] CT HEAD TECHNIQUE: Noncontrast CT of the head obtained from the skullbase to the vertex. CLINICAL INFORMATION: Symptoms of acute stroke COMPARISON: None. DLP: All CT scans at [facility] use at least one of these dose optimization techniques: automated e xposure control; mA and/or kV adjustment per patient size (includes targeted exams where dose is matc hed to clinical indication); or iterative reconstruction. FINDINGS: No evidence of intracranial hemorrhage or mass effect. Ventricular system and basal cisterns are alves nt. Moderate to advanced small vessel changes with moderate parenchymal volume loss. No extra-axial f luid collections. No evidence of mass or mass effect. Intracranial vascular calcification. Opacification left frontal sinus and frontoethmoidal recess. Partial opacification of the ethmoid air cells. Retention cyst left maxillary sinus measuring 14 mm. IMPRESSION: 1. No evidence of intracranial hemorrhage or mass effect. 2. Moderate to advanced small vessel changes with moderate parenchymal volume loss. 3. Intracranial vascular calcification. 4. No acute intracranial findings. Notified Scar Galan MD at 12/28/2022 3:47 PM.
[2022-12-28 15:34] LABS: Glucose Point of Care 94 mg/dL (70-110)
--- NOTE | 2022-12-28 15:35 | PC.NURSE ---
STROKE ALERT CALLED [id number].
--- NOTE | 2022-12-28 15:49 | ECG_ITS ---
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 Measurements Intervals [place] Rate: 102 P: 55 MD: 142 QRS: 25 QRSD: 78 T: 33 QT: 341 QTc: 445 Interpretive Statements SINUS TACHYCARDIA WITH OCCASIONAL SUPRAVENTRICULAR PREMATURE COMPLEXES ABNORMAL RHYTHM ECG Compared to ECG 08/17/2022 03:39:34 Sinus rhythm no longer present Ventricular premature complex(es) no longer present Electronically Signed On 12-28-2022 18:45:57 CDT by Fay Gastelum M.D. [email or web address]
[2022-12-28 15:55] LABS: Basophils % 0.4 %; Eosinophils # 0.1 10^3/uL (0.0-0.8); Eosinophils % 0.5 %; Hematocrit 43.5 % (37.0-47.0); Hemoglobin 14.1 g/dL (11.5-15.3); Lymphocytes # 2.1 10^3/uL (0.8-4.8); Lymphocytes % 18.1 %; Mean Corpuscular HGB Conc 32.4 g/dL (30.0-36.0); Mean Corpuscular Hemoglobin 31.8 pg (28.0-34.0); Mean Platelet Volume 9.7 fL (7.4-10.4); Monocytes # 0.9 10^3/uL (0.2-0.9); Monocytes % 8.1 %; Neutrophils # 8.23 10^3/uL (1.8-7.7); Neutrophils % 72.5 %; Nucleated Red Blood Cells % 0 %; Platelet Count 260 10^3/cmm (130-400); Red Blood Count 4.44 10^6/uL (4.1-5.3); Red Cell Distribution Width 13.6 % (12.1-15.1); White Blood Count 11.3 10^3/uL (4.0-10.0)
[2022-12-28 16:13] LABS: INR 0.97 (0.8-1.2)
[2022-12-28 16:14] LABS: Partial Thromboplastin Time 24.3 SECONDS (23.9-36.7)
[2022-12-28 16:20] LABS: Alanine Aminotransferase 17 U/L (0-33); Albumin Level 4.1 g/dL (3.5-5.2); Alkaline Phosphatase 64 U/L (35-105); Anion Gap 15.2 (5-19); Aspartate Amino Transferase 16 U/L (0-32); Blood Urea Nitrogen 16 mg/dL (8-23); Calcium 9.3 mg/dL (8.5-10.5); Carbon Dioxide 26 mmol/L (22-29); Chloride 102 mmol/L (98-107); Globulin 2.5 g/dL (1.3-4.6); Glucose 95 mg/dL (65-115); Osmolality Calculated 289 mOsm/kg (285-295); Potassium 4.2 mmol/L (3.5-5.1); Sodium 139 mmol/L (136-145); Total Bilirubin 0.3 mg/dL (0.15-1.2); Total Protein 6.6 g/dL (6.6-8.7)
--- NOTE | 2022-12-28 16:40 | PM.CONSULT ---
Providers/Reason For Consult Consulting Physician/Specialty*: Edgar Moran MD neurology and epilepsy Reason for Consult*: Critical care: Code Stroke Emergency Department Room 2 Primary Care Provider: Ravi Charlton DO History of Present Illness History of Present Illness Beckie Jean is a 87 year old female with a history of labile hypertension, lumbar spinal stenosis addressed by pain clinic, arthritis of the spine, and lower extremity swelling and kidney stones x2. According to the patient's niece for the past 2 years the patient has been experiencing recurrent episodes of falling associated with acting strange and confused and using odd words and displaying paraphasias which last for approximately 1 to 1-1/2 days and then the patient's condition would return to baseline. The episode started when the patient was living in [place]. The patient's niece stated the patient was diagnosed with TIA's. The patient's niece also stated that for several months the patient has been experiencing memory loss as well as some difficulty ambulating and leg swelling the niece also stated that the patient was placed in a residential facility 2 weeks prior to this emergency room evaluation. 2 weeks prior to the patient being placed in a residential facility the niece stated the patient was experiencing personality changes, screaming and crying as well as using the wrong words during conversations. The niece stated she was experiencing difficulty caring for the patient who was living with her, so the patient was placed in a residential facility 2 weeks ago. According to the patient's niece the patient was on Zanaflex and Mobic and stated that when she visited the patient on at least 1 occasion the patient seemed drugged on the Zanaflex. But according to the patient needs the patient ran out of the medication. Today on 12/28/2022 the patient was reported to be at her baseline around 11 AM on 12/28/2022 but when the residential facility staff checked on the patient at 12 PM on 12/28/2022 the patient was found slumped over and incontinent of urine. The patient was brought to [facility] emergency department. Code stroke was initiated at 3:28 PM. Patient last known well was 11 AM on 12/28/2022. NIH score = 4 by the emergency room physician NIH score = 3 during my neurological assessment. Since the patient's last known well was 11 AM on 12/28/2022, the patient was not a candidate for tPA and no tPA was administered. This was discussed with the patient's niece who was present at the patient's bedside. Past medical history: Labile hypertension Lumbar spinal stenosis addressed by pain clinic in [place] and in [place] Degenerative disc disease of the spine Recurrent paroxysmal episodes for 2 years described as falling associated with confusion and speaking strange words and using paraphasias Indigestion Lower extremity edema, etiology unclear (according to the patient's niece the patient was prescribed compression stockings which the patient has difficulty putting on) Memory loss Kidney stones x2 Drug allergies: Aspirin which resulted in abdominal pain Current outpatient medications: Zanaflex 2 tablets twice a day (exact milligram unknown by the patient's niece) according to the patient's niece the patient ran out of this medication Mobic 15 mg p.o. daily Habits: None Family history: Remarkable for a sister who is the patient's niece mother is also in a assisted living facility secondary to unexplained weight loss Social history: Patient resides in an assisted living facility Review of Systems General: Reports: 10 or more systems reviewed and unremarkable except in HPI and below Card: Reports: edema, swelling of feet/ankles, syncope and pre-syncope Musc: Reports: back pain and limited range of motion Neuro: Reports: difficulty walking, confusion, behavioral changes, Slurred speech present and seizure-like activity Medications/Allergies Home Medications Medication Instructions Recorded Confirmed Last Taken Type meloxicam 15 mg tablet 15 mg PO DAILY #30 tabs 07/11/22 12/28/22 12/28/22 Rx Allergies Allergy/AdvReac Type Severity Reaction Status Date / Time aspirin Allergy ADR-Abdominal Verified 12/28/22 15:32 Pain PFSH Acute PFSH: Medical History HTN (hypertension) Family History Other CAD (coronary artery disease) Cancer Social History Smoking and tobacco status: never smoked Alcohol intake: never Adopted: No Caregiver/support person: No Lives independently: No Household members: family Housing: House Vitals/I&O/Wt Last Vital Signs Temp 98.6 F 12/28/22 15:22 Pulse 98 12/28/22 15:48 Resp 18 08/11/23 15:48 BP 202/104 12/28/22 15:48 Pulse Ox 96 12/28/22 15:48 O2 Del Method Room Air 12/28/22 15:48 Weight last 48 hrs Weight 190 lb Physical Exam Narrative: NIH score =3 Blood pressure 202/104 heart rate 93 O2 saturations 98% on room air The patient is alert she is oriented to person but not to place. Patient was able to tell me her first name but could not tell me her last name. The patient was able to follow commands. The patient displayed difficulty naming objects (anomia), and at times patient used paraphasias (using the wrong words during conversation). Head atraumatic neck supple cranial nerves II through XII grossly intact with no obvious facial weakness or sensory loss. Speech at times was clear but at other times patient displayed paraphasias. Intermittently the patient displays some slurred speech/dysarthria. Motor testing 5/5 bilaterally in the upper extremities and nonfocal in the lower extremities patient was able to lift her edema in his legs off the bed without assistance and against gravity. Patient was able to wiggle her toes symmetrically bilaterally. Sensory examination was intact to gross modalities. I did not observe any obvious ataxia in the upper or lower extremities. There was no extinction on double sensory stimulation. Throat clear. Lungs clear. Heart regular rhythm and rate. Extremities revealed pitting edema in the lower extremities bilaterally. Dorsalis pedis pulse was 2+ in the lower extremities and radial pulses were 2-3+ bilaterally. There was no cyanosis. Data 12/28/22 15:46 12/28/22 15:46 A&P Assessment and plan (1) TIA involving left internal carotid artery: Impression: 1. Transient ischemic attack versus left cerebral infarct manifested as paraphasias and slurred speech 2. Recurrent syncopal episodes/falling associated with the patient displaying confusion, talking strangely lasting for 24 to 36 hours for the past 2 years, cannot rule out an underlying seizure disorder 3. Lower extremity pitting edema 4. History of lumbar spinal stenosis addressed by pain clinic in [place] and in [place] 5. Labile hypertension with malignant hypertension 6. Kidney stones x2 7. Aspirin allergy manifested as abdominal pain Plan: 1. Recommend head MRI with and without contrast to assess for left hemispheric stroke and space-occupying lesion involving the left hemisphere 2. Carotid duplex study to assess for carotid or vertebral artery stenosis and perform CT angiogram of the head and neck if carotid duplex study is suggestive of stenosis 3. Address malignant hypertension 4. Discontinue meloxicam since nonsteroidal anti-inflammatory medications have been reported to potentially increased risk for strokes and heart disease 5. Address lower extremity pitting edema and rule out congestive heart failure 6. Recommend obtaining 2D echocardiogram 7. Seizure/fall precautions 8. Start IV Keppra 500 mg IV every 12 hour for seizure prophylaxis 9. Consider cardiac evaluation to assess for congestive heart failure 10. Ativan 1 mg IV every 6 hours as needed for any seizure-like episodes or agitation (2) Syncope and collapse: Consult Attestations Medical Necessity Statement: Critical care note for code stroke emergency department room 2 Coding Level of Care Code 84781 Diagnoses TIA involving left internal carotid artery G45.1 Syncope and collapse R55 Time Spent (min) 45
[2022-12-28 17:43] LABS: Bilirubin Urine Neg (Negative); Blood Urine 2+ (Negative); Glucose Urine UA Norm (Normal); Ketones Urine 1+ (Negative); Nitrate Urine Positive (Negative); Protein Urine Neg (Negative); Specific Gravity, Urine 1.005 (1.005-1.030); Urine Appearance Clear (CLEAR); Urine Color Yellow (Yellow); Urobilinogen Urine Norm (Negative); pH Urine 7 (5-7)
[2022-12-28 17:44] LABS: Add Urine Culture? Yes; Add Urine Microscopic? YES; Bacteria Urine 4+ /hpf; Leukocyte Esterase Urine Trace (Negative); Mucus Urine 1+ /hpf; RBC Urine 0-4 /hpf (0-2); Squamous Epithelial Cell Urine 0-4 /hpf (0-5)
[2022-12-28 17:47] LABS: Amphetamines Screen Urine Negative (Negative); Barbiturates Screen Urine Negative (Negative); Benzodiazepines Screen Urine Negative (Negative); Cocaine Screen Urine Negative (Negative); Opiate Screen Urine Negative (Negative); PCP Screen Urine Negative (Negative); THC Screen Urine Negative (Negative)
--- NOTE | 2022-12-28 17:55 | PM.HP ---
Providers/Chief Complaint Primary Care Provider: Ravi Charlton DO Chief Complaint: AMS History of Present Illness Beckie Jean is a 87 year old female with a history of labile hypertension, lumbar spinal stenosis addressed by pain clinic, arthritis of the spine, and lower extremity swelling and kidney stones x2.? According to the patient's niece for the past 2 years the patient has been experiencing recurrent episodes of falling associated with acting strange and confused and using odd words and displaying paraphasias which last for approximately 1 to 1-1/2 days and then the patient's condition would return to baseline. She has been diagnosed of TIAs in the past. Currently she is living in a intermediate for the past 2 weeks after her niece was not able to take care of patient's needs and ADLs. Patient has also been experiencing memory loss with some difficulty in ambulating and personality changes with episodes of noemi with crying and agitation. According to the patient's niece the patient was on Zanaflex and Mobic with episodes of extreme sedation and Zanaflex. Today while being at intermediate patient was seen at her baseline at around 11 AM but when checked again at 12 PM she was found slumped over and incontinent for urine. Patient was brought to the ER with concerns of possible stroke and code stroke was called at 3:28 PM. Patient was seen by neurology and was deemed not a candidate for tPA. Work-up in the ER had CT head without contrast which was negative for acute abnormality and UA consistent with UTI hence hospitalist service was consulted for further evaluation and management. Review of Systems General: Reports: ROS unobtainable due to mental status Medications/Allergies Home Medications Medication Instructions Recorded Confirmed Last Taken Type meloxicam 15 mg tablet 15 mg PO DAILY #30 tabs 07/11/22 12/28/22 12/28/22 Rx Allergies Allergy/AdvReac Type Severity Reaction Status Date / Time aspirin Allergy ADR-Abdominal Verified 12/28/22 15:32 Pain PFSH Acute PFSH: Medical History (Updated 12/28/22 @ 23:05 by Vince Waters MD) Blepharitis Candidal intertrigo HTN (hypertension) Lumbar back pain Lumbar spinal stenosis Verruca vulgaris Family History Other CAD (coronary artery disease) Cancer Social History (Updated 12/28/22 @ 23:05 by Vince Waters MD) Smoking and tobacco status: never smoked Alcohol intake: never Adopted: No Caregiver/support person: No Lives independently: No Household members: other Housing: Group Home Vitals/I&O/Wt Last Vital Signs Temp 98.6 F 12/28/22 15:22 Pulse 89 12/28/22 16:53 Resp 18 12/28/22 16:53 BP 202/104 12/28/22 15:48 Pulse Ox 94 12/28/22 16:53 O2 Del Method Room Air 12/28/22 16:53 Weight last 48 hrs Weight 86.183 kg Physical Exam Narrative: General: Awake and alert x1. Patient is able to tell me her name but otherwise has expressive aphasia. She is using jumbled words to make sentences which is not making any sense HEENT: PERRLA, pupils bilaterally equal and reactive Chest: Normal respiratory breath sounds over lower lung yates without any CVS: S1-S2 regular, no murmurs, no tachycardia, no gallops, no rubs Abdomen: Soft, nontender, no organomegaly, bowel sounds present, morbidly obese Neuro: Moving all limbs, no facial deformity, expressive aphasia, able to follow commands, not able to name objects Data 12/29/22 04:45 12/29/22 04:45 A&P Assessment and plan (1) Syncope and collapse: (2) Expressive aphasia: (3) Personality change: (4) Metabolic encephalopathy: (5) Complicated urinary tract infection: Plan 87-year-old female brought from the intermediate with symptoms of syncope and collapse followed by acute metabolic encephalopathy along with expressive aphasia with history of having recurrent episodes in the last 2 years along with change in personality having blood work and work-up suspicious of UTI. Acute metabolic encephalopathy/expressive aphasia/personality changes: Acute abnormality ruled out with CT head in the ER. Cannot rule out chronic stroke versus press syndrome given uncontrolled hypertension in ER versus toxic metabolic encephalopathy in setting of UTI. Meningitis less likely. Cannot rule out limbic encephalitis. For now we will complete stroke work-up with CTA head and neck, MRI brain, echocardiogram. Check vitamin B12, folate, RPR, TSH. Check copper, lead levels. If above work-up negative patient would benefit from lumbar puncture to rule out NMDA. Hold off on Zanaflex and Mobic for now. Appreciate neurology recommendations. PT/OT/speech evaluation. Aspirin 81 mg daily, atorvastatin 20 mg daily. Check A1c, lipid panel. Follow-up blood culture, urine culture. Empirically start on ceftriaxone for now. Started on Keppra 500 mg every 12 hourly as per recommendations from neurology for the possibility of stroke though unlikely for now. Seizure precautions. Hypertension: Uncontrolled. Given possibility of stroke will continue with permissive hypertension for next 24 hours. Treat with hydralazine 10 mg every 6 hours as needed for systolic blood pressure of more than 200 mmHg. Post 24 hours will go for more stricter control. Full code Dysphagia level 6 diet. Change as per speech therapy. Heparin 5000 every 8 hourly for DVT prophylaxis Famotidine for PUD prophylaxis. Attestations Medical Necessity Statement*: Admission for more than 2 midnights for further work-up of acute metabolic encephalopathy, expressive aphasia with personality changes while stroke is ruled out. 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
[2022-12-28 18:05] LABS: NT Pro B Type Natriuretic Pept 756 pg/mL (0-450); Troponin(5th) Baseline 19 ng/L (0-10)
--- NOTE | 2022-12-28 18:10 | CTR_ITS ---
PROCEDURE INFORMATION: Exam: CTA Head With Contrast, Arteriography Exam date and time: 12/28/2022 6:19 PM Age: 87 years old Clinical indication: Cognitive deficit and speech disturbance; Altered mental status; Patient HX: From intermediate for confusion/lethargy, aphasia, and incontinence. ; Additional info: Stroke work up, CT angiogram cervical and intracranial vessels TECHNIQUE: Imaging protocol: Computed tomographic angiography of the head with contrast. Exam focused on the arteries. 3D rendering (Not supervised by radiologist): MIP and/or 3D reconstructed images were created by the technologist. Radiation optimization: All CT scans at this facility use at least one of these dose optimization techniques: automated exposure control; mA and/or kV adjustment per patient size (includes targeted exams where dose is matched to clinical indication); or iterative reconstruction. Contrast material: OMNI 350; Contrast volume: 100 ml; Contrast route: INTRAVENOUS (IV); REPORTING DATA: Count of CT and Cardiac NM exams in prior 12 months: This patient has received 0 known CTs and 0 known cardiac nuclear medicine studies in the 12 months prior to the current study. COMPARISON: CT head thrombolytic [id number] 12/28/2022 3:32 PM RADIATION DOSE METRICS: Total DLP (mGy-cm): 326.8 FINDINGS: ANTERIOR CIRCULATION: Right internal carotid artery: Intracranial segment is patent with no significant stenosis. No aneurysm. Right middle cerebral artery: No occlusion or significant stenosis. No aneurysm. Right anterior cerebral artery: No occlusion or significant stenosis. No aneurysm. Left internal carotid artery: Intracranial segment is patent with no significant stenosis. No aneurysm. Left middle cerebral artery: No occlusion or significant stenosis. No aneurysm. Left anterior cerebral artery: No occlusion or significant stenosis. No aneurysm. POSTERIOR CIRCULATION: Right vertebral artery: There are mild atherosclerotic changes in the V4 segment of the right vertebral artery. Left vertebral artery: The left vertebral artery is non dominant with the majority of the flow terminating in the PICA. Beyond this point is not visualized. Basilar artery: The basilar artery is small in caliber with scattered moderate to high-grade stenoses distally. Right posterior cerebral artery: The right HOME DELIVERY DRIVER also has origin. Left posterior cerebral artery: The left HOME DELIVERY DRIVER has anatomic variant origin. Brain: Involutional changes of the brain are stable. No midline shift or mass effect is present. Cerebral ventricles: No ventriculomegaly. Bones/joints: Unremarkable. No acute fracture. Soft tissues: Unremarkable. Other findings: The study is motion degraded. PROCEDURE INFORMATION: Exam: CTA Neck With Contrast Exam date and time: 12/28/2022 6:19 PM Age: 87 years old Clinical indication: Cognitive deficit and speech disturbance; Altered mental status; Patient HX: From intermediate for confusion/lethargy, aphasia, and incontinence. ; Additional info: Stroke work up, CT angiogram cervical and intracranial vessels TECHNIQUE: Imaging protocol: Computed tomographic angiography of the neck with contrast. 3D rendering (Not supervised by radiologist): MIP and/or 3D reconstructed images were created by the technologist. Radiation optimization: All CT scans at this facility use at least one of these dose optimization techniques: automated exposure control; mA and/or kV adjustment per patient size (includes targeted exams where dose is matched to clinical indication); or iterative reconstruction. Contrast material: OMNI 350; Contrast volume: 100 ml; Contrast route: INTRAVENOUS (IV); REPORTING DATA: Count of CT and Cardiac NM exams in prior 12 months: This patient has received 0 known CTs and 0 known cardiac nuclear medicine studies in the 12 months prior to the current study. COMPARISON: CT head thrombolytic [id number] 12/28/2022 3:32 PM RADIATION DOSE METRICS: Total DLP (mGy-cm): 326.8 FINDINGS: Right common carotid artery: No stenosis. No dissection or occlusion. Right internal carotid artery: No stenosis of the extracranial segment. No dissection or occlusion. Right external carotid artery: No occlusion or stenosis of the origin. Left common carotid artery: No stenosis. No dissection or occlusion. Left internal carotid artery: No stenosis of the extracranial segment. No dissection or occlusion. Left external carotid artery: No occlusion or stenosis of the origin. Right vertebral artery: No stenosis. No dissection or occlusion. Left vertebral artery: No stenosis. No dissection or occlusion. Aorta: Ectatic ascending aorta to 3.9 cm. Soft tissues: Normal. No significant soft tissue swelling. Bones/joints: No acute fracture. Other findings: Study is degraded by motion. CT/CT angio headneck* [id number] IMPRESSION: 1. Patent anterior circulation branches. 2. The non dominant left vertebral artery terminates in the PICA with age-indeterminate occlusion beyond this point - potentially chronic; correlate with patient's symptoms. The basilar artery is small in caliber with moderate to high-grade multifocal stenoses distally. Both mobile lounge driver has anatomic variant origin. IMPRESSION: No occlusion or significant stenosis. REFERENCES: NASCET CRITERIA. The degree of stenosis in the cervical segment of the internal carotid artery is based on NASCET criteria. Normal is no stenosis. Mild is less than 50% stenosis. Moderate is 50-69% stenosis. Severe is 70% to 99% stenosis. Total occlusion is no detectable patent lumen.
[2022-12-28 18:19] LABS: Troponin 5 2HR 15.99 ng/L (0-10)
[2022-12-28 18:23] LABS: Troponin 5 2HR Delta -3.01 ABS# (0-10)
--- NOTE | 2022-12-28 18:26 | ECG_ITS ---
[facility] Test Date: 2022-12-28 Pat Name: Beckie Jean Department: Room: Gender: Female Surgery Assistant: : 1935 Requested By: Scar Galan Order Number: [id number] Brayan MD: Fay Gastelum M.D. Measurements Intervals [place] Rate: 103 P: 46 [place]: 124 QRS: 36 QRSD: 84 T: 39 QT: 352 QTc: 462 Interpretive Statements SINUS TACHYCARDIA WITH OCCASIONAL SUPRAVENTRICULAR PREMATURE COMPLEXES ABNORMAL RHYTHM ECG Compared to ECG 12/28/2022 15:49:45 No significant changes Electronically Signed On 12-28-2022 18:56:42 CDT by Fay Gastelum M.D. [id number]
[2022-12-28] MEDS: iohexol 350 mg/mL 500 mL Btl (per mL) IV (18:27)
[2022-12-28] MEDS: cefTRIAXone 1,000 MG in sodium chloride 0.9% (plus) 50 ML 100 MG IV (18:30)
[2022-12-28 18:45] LABS: Procalcitonin 0.04 ng/mL (0-0.5)
[2022-12-28] MEDS: aspirin 325 mg Tablet PO (19:50)
[2022-12-28] MEDS: atorvastatin 40 mg Tablet PO (21:48)
[2022-12-28] MEDS: heparin 5,000 unit/mL INJ 1 mL 5000 UNIT SUBCUT (21:48)
--- NOTE | 2022-12-28 22:26 | ECG_ITS ---
[facility] Test Date: 2022-12-29 Pat Name: Beckie Jean Department: Room: 270 Gender: Female Welder 2Nd Shift: : 1935 Requested By: Scar Galan Order Number: [id number] Reading MD: Kwan Felipe M.D. Measurements Intervals [place] Rate: 96 P: 74 [place]: 144 QRS: 61 QRSD: 81 T: 45 QT: 372 QTc: 470 Interpretive Statements SINUS RHYTHM WITH OCCASIONAL VENTRICULAR PREMATURE COMPLEXES WITH OCCASIONAL SUPRAVENTRICULAR PREMATURE COMPLEXES Compared to ECG 12/28/2022 18:35:09 Ventricular premature complex(es) now present Sinus tachycardia no longer present Electronically Signed On 12-29-2022 8:47:55 CDT by Kwan Felipe M.D. [email or web address] [id number]
[2022-12-28 22:29] LABS: Troponin 5 6HR 19.11 ng/L (0-10)
[2022-12-28 22:44] LABS: Iron 78 ug/dL (37-145); Percent Saturation 22.5 % (20-50); Thyroid Stimulating Hormone 1.05 uIU/mL (0.27-4.20); Total Iron Binding Capacity 346 mcg/dl; Unsaturated Iron Binding 268 ug/dL (112-347); Vitamin B12 259 pg/mL (232-1245)
[2022-12-28 22:49] LABS: Troponin 5 6HR Delta 0.11 ng/L (0-12)
[2022-12-28 23:41] LABS: Alcohol Level < 10 mg/dL (0-10)
[2022-12-29] VITALS (8 sets, daily range): BP systolic 134–178; BP diastolic 66–84; PULSE 81–92; RESP 16–18; TEMP 36.4–36.6; O2SAT 90–94
[2022-12-29 00:53] LABS: Rapid Plasma Reagin Syphilis Nonreactive (Nonreactive)
[2022-12-29 05:00] LABS: Basophils % 0.4 %; Eosinophils # 0.2 10^3/uL (0.0-0.8); Eosinophils % 1.8 %; Hematocrit 41.4 % (37.0-47.0); Hemoglobin 13.6 g/dL (11.5-15.3); Lymphocytes # 2.2 10^3/uL (0.8-4.8); Lymphocytes % 23.2 %; Mean Corpuscular HGB Conc 32.9 g/dL (30.0-36.0); Mean Corpuscular Hemoglobin 32.2 pg (28.0-34.0); Mean Corpuscular Volume 97.9 fl (81-99); Mean Platelet Volume 9.7 fL (7.4-10.4); Monocytes # 0.9 10^3/uL (0.2-0.9); Monocytes % 9.7 %; Neutrophils # 6.09 10^3/uL (1.8-7.7); Neutrophils % 64.7 %; Nucleated Red Blood Cells % 0 %; Platelet Count 240 10^3/cmm (130-400); Red Blood Count 4.23 10^6/uL (4.1-5.3); Red Cell Distribution Width 13.4 % (12.1-15.1); White Blood Count 9.4 10^3/uL (4.0-10.0)
[2022-12-29 05:26] LABS: Chol HDL Ratio 2.84 mg/dL (0.0-4.40); Cholesterol 173 mg/dL (0-200); HDL Cholesterol 61 mg/dL (60-100); LDL Cholesterol Calculated 89 mg/dL (50-129); LDL HDL Ratio 1.46 RATIO (0.00-3.22); Triglycerides 116 mg/dL (0-150)
[2022-12-29 05:27] LABS: Alanine Aminotransferase 16 U/L (0-33); Albumin Level 3.7 g/dL (3.5-5.2); Alkaline Phosphatase 60 U/L (35-105); Anion Gap 12.6 (5-19); Aspartate Amino Transferase 19 U/L (0-32); Blood Urea Nitrogen 12 mg/dL (8-23); Calcium 8.9 mg/dL (8.5-10.5); Carbon Dioxide 27 mmol/L (22-29); Chloride 101 mmol/L (98-107); Globulin 2.5 g/dL (1.3-4.6); Glucose 94 mg/dL (65-115); Magnesium 1.9 mg/dL (1.7-2.3); Osmolality Calculated 284 mOsm/kg (285-295); Phosphorus 3.4 mg/dL (2.5-4.5); Potassium 3.6 mmol/L (3.5-5.1); Sodium 137 mmol/L (136-145); Total Bilirubin 0.5 mg/dL (0.15-1.2); Total Protein 6.2 g/dL (6.6-8.7)
[2022-12-29 05:34] LABS: Estmated Average Glucose 120; Hemoglobin A1C 5.8 % (4.0-6.0)
[2022-12-29 05:46] LABS: Folate Level 6.8 ng/mL (4.8-37.3)
[2022-12-29] MEDS: heparin 5,000 unit/mL INJ 1 mL 5000 UNIT SUBCUT ×2 (09:17→20:46)
[2022-12-29] MEDS: aspirin 81 mg EC Tablet PO (09:17)
[2022-12-29] MEDS: levETIRAcetam 1,000 mg/10 mL UDC 500 MG PO ×2 (09:17→18:23)
--- NOTE | 2022-12-29 11:25 | PC.PT ---
Attempted to see pt at 1017, and she was in room resting. Pt was easily aroused and denied pain. She presented with expressive aphasia and have difficulty word finding when asking questions. Pt refused any activity today and continuously repeated No, no, no! when trying to encourage pt to participate. She started growing irritable, so decided to hold off until pt is more appropriate for participation. Will reattempt evaluation at a later time.
[2022-12-29] MEDS: amlodipine 5 mg Tablet PO (14:11)
--- NOTE | 2022-12-29 15:19 | PM.PN ---
Subjective Subjective: Patient seems to be improving. Today morning sitting up in chair, having her meals. More alert. Able to have some conversation but still having episodes of confusion and aphasia. Overnight has remained hemodynamically stable and afebrile on room air. Patient did not participate in physical therapy today for now until will be tried again later. Blood work shows resolution of leukocytosis, stable hemoglobin, normal CMP, UA showing positive nitrites, drug tox came negative with negative alcohol, negative RPR. Vitals/I&O/Wt Last Vital Signs Temp 97.9 F 12/29/22 12:00 Pulse 91 12/29/22 12:00 Resp 18 12/29/22 12:00 BP 146/70 12/29/22 12:00 Pulse Ox 90 12/29/22 12:00 O2 Del Method Room Air 12/29/22 04:00 12/29/22 12/29/22 12/29/22 06:59 14:59 22:59 Intake Total 480 / 480 Balance 480 / 480 Weight last 48 hrs Weight 74.48 kg Weight 86.183 kg Physical Exam Narrative: General: Awake and alert x1. Patient is able to tell me her name but otherwise has expressive aphasia. She is using jumbled words to make sentences which is not making any sense HEENT: PERRLA, pupils bilaterally equal and reactive Chest: Normal respiratory breath sounds over lower lung yates without any CVS: S1-S2 regular, no murmurs, no tachycardia, no gallops, no rubs Abdomen: Soft, nontender, no organomegaly, bowel sounds present, morbidly obese Neuro: Moving all limbs, no facial deformity, expressive aphasia, able to follow commands, not able to name objects Data 12/29/22 04:45 12/29/22 04:45 Micro: Microbiology 12/28/22 17:20 Urine Culture - Preliminary Urine,Clean Catch Gram Negative Rods 12/28/22 20:48 Blood Culture - Preliminary Blood SPECIMEN COLLECTED 12/28/22 20:44 Blood Culture - Preliminary Blood SPECIMEN COLLECTED A&P Assessment and plan (1) Syncope and collapse: (2) Expressive aphasia: (3) Personality change: (4) Metabolic encephalopathy: (5) Complicated urinary tract infection: Plan 87-year-old female brought from the residential with symptoms of syncope and collapse followed by acute metabolic encephalopathy along with expressive aphasia with history of having recurrent episodes in the last 2 years along with change in personality having blood work and work-up suspicious of UTI. Acute metabolic encephalopathy/expressive aphasia/personality changes: Acute abnormality ruled out with CT head in the ER. Cannot rule out chronic stroke versus press syndrome given uncontrolled hypertension in ER versus toxic metabolic encephalopathy in setting of UTI. Meningitis less likely. Cannot rule out limbic encephalitis. Appreciate CTA head and neck results. MRI of awaited. Vitamin B12 normal low, TSH normal, folate normal. Copper and lead levels awaited. If above work-up negative patient would benefit from lumbar puncture to rule out NMDA. Hold off on Zanaflex and Mobic for now. Appreciate neurology recommendations. PT/OT/speech evaluation. Aspirin 81 mg daily, atorvastatin 20 mg daily. A1c 5.8, lipid panel appreciated. Follow-up blood culture, urine culture. Empirically start on ceftriaxone for now. Started on Keppra 500 mg every 12 hourly as per recommendations from neurology for the possibility of stroke though unlikely for now. Seizure precautions. Hypertension: Uncontrolled. Goal blood pressure less than 140/90 mmHg. Blood pressure slightly better controlled now. Start on amlodipine 5 mg oral daily. Will uptitrate as per goal blood pressures. CODE STATUS: prison papers reviewed. Patient is DNR/DNI. Advance diet as per speech evaluation. Heparin 5000 every 8 hourly for DVT prophylaxis Famotidine for PUD prophylaxis. 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
--- NOTE | 2022-12-29 15:31 | PC.NURSE ---
Telemetry not on due to patient refusing to wear.
--- NOTE | 2022-12-29 18:10 | USCV_ITS ---
Beckie Jean Age: 87 Gender: F : 1935 Exam Date: 12/29/2022 11:22 Ordering Phys: Vince Waters MD Technologist: SURJIT Exam Location: [facility] [place] Indication: stroke BP: / HR: 82 Rhythm: Sinus Technical Quality: Suboptimal MEASUREMENTS (Male / Female) Normal Values 2D ECHO LV Diastolic Diameter PLAX 4.6 cm 4.2 - 5.9 / 3.9 - 5.3 cm LV Systolic Diameter PLAX 3.2 cm IVS Diastolic Thickness 0.8 cm 0.6 - 1.0 / 0.6 - 0.9 cm IVS Systolic Thickness 1.2 cm LVPW Diastolic Thickness 0.8 cm 0.6 - 1.0 / 0.6 - 0.9 cm LVPW Systolic Thickness 1.2 cm LVOT Diameter 2.3 cm LV Ejection Fraction 2D Teich 58.9 % LV Ejection Fraction MOD 2C 50.5 % LV Ejection Fraction 2C AL 51.4 % LA Diameter 2.7 cm IVC Diameter 1.1 cm M-MODE Aortic Annulus Diameter 3.0 cm LA Ao Ratio MM 0.9 MV E Point Septal Separation 0.3 cm DOPPLER MV Area PHT 3.5 cm squared Mitral E to A Ratio 0.6 MV E' Velocity 48.0 cm/s Mitral E to MV E' Ratio 17.9 Mitral E to LV E' Lateral Ratio 19.0 Mitral E to LV E' Septal Ratio 16.9 PV Peak Velocity 84.0 cm/s FINDINGS Left Ventricle Normal left ventricular size, systolic function and wall thickness, with no regional wall motion abnormalities. Grade II/IV diastolic dysfunction, moderately elevated filling pressures. Left ventricular ejection fraction is estimated at 65 %. Right Ventricle Normal right ventricular size and systolic function. Right Atrium The right atrium is normal in size. Left Atrium The left atrium is normal in size. Mitral Valve Mitral valve not well visualized. Moderate mitral annular calcification. No mitral valve regurgitation. No mitral valve stenosis. Aortic Valve Aortic valve not well visualized. Mild aortic valve calcification. Mild aortic valve regurgitation. No aortic valve stenosis. Tricuspid Valve Structurally normal tricuspid valve. Trace tricuspid valve regurgitation. Pulmonic Valve Pulmonic valve not well visualized. Pericardium Normal pericardium without effusion. Aorta Normal ascending aorta dimension. IVC Inferior vena cava not visualized. CONCLUSIONS Normal left ventricular size, systolic function and wall thickness, with no regional wall motion abnormalities. Grade II/IV diastolic dysfunction, moderately elevated filling pressures. Left ventricular ejection fraction is estimated at 65 %. Aortic valve not well visualized. Mild aortic valve calcification. Mild aortic valve regurgitation. No aortic valve stenosis. There are no prior echocardiogram studies to compare. Dr. Kwan Felipe MD (Electronically Signed) Final Date: 30 December 2022 08:44 S
--- NOTE | 2022-12-29 18:12 | MRR_ITS ---
PROCEDURE INFORMATION: Exam: MR Head Without Contrast Exam date and time: 12/29/2022 12:58 PM Age: 87 years old Clinical indication: Altered mental status/memory loss and speech disturbance; Confusion or disorientation; Aphasia; Additional info: Stroke, expressive aphasia TECHNIQUE: Imaging protocol: Magnetic resonance imaging of the head without contrast. COMPARISON: CT head thrombolytic [id number] 12/28/2022 3:32 PM FINDINGS: Brain: There are areas of increased FLAIR signal in the cerebral white matter, consistent with microvascular disease. Pradhan white differentiation is intact. Diffusion weighted images show no restricted diffusion or evidence of acute infarct. There is no mass effect or midline shift. There is no acute intracranial hemorrhage. There are no extra-axial fluid collections. Cerebral ventricles: The ventricles and sulci are proportionally enlarged, consistent with age related volume loss / atrophy. Bones/joints: Unremarkable as visualized. Paranasal sinuses: There is left maxillary sinus retention cyst or polyp. There is mucosal thickening in left greater than right ethmoid air cells and left maxillary sinus is opacified with mucosal thickening. Mastoid air cells: No significant mastoid effusion. Orbital cavities: There have been bilateral intraocular lens replacements likely related to cataract surgery. Soft tissues: Unremarkable as visualized. MR/MR head wo con* [id number] IMPRESSION: 1. No evidence of acute intracranial abnormality. No evidence of acute infarction, hemorrhage, or mass. 2. Atrophy and microvascular disease.
[2022-12-29] MEDS: cefTRIAXone 1,000 MG in sodium chloride 0.9% (plus) 50 ML 100 MG IV (18:24)
[2022-12-29] MEDS: atorvastatin 40 mg Tablet PO (20:46)
[2022-12-30] VITALS (8 sets, daily range): BP systolic 132–178; BP diastolic 70–84; PULSE 81–92; RESP 16–17; TEMP 36.4–36.8; O2SAT 91–96
[2022-12-30 06:11] LABS: Basophils # 0.1 10^3/uL (0.0-0.1); Basophils % 0.7 %; Eosinophils # 0.2 10^3/uL (0.0-0.8); Eosinophils % 3.3 %; Lymphocytes # 2.2 10^3/uL (0.8-4.8); Lymphocytes % 30.7 %; Mean Corpuscular HGB Conc 32.6 g/dL (30.0-36.0); Mean Corpuscular Hemoglobin 32.1 pg (28.0-34.0); Mean Corpuscular Volume 98.6 fl (81-99); Monocytes # 0.8 10^3/uL (0.2-0.9); Monocytes % 11.6 %; Neutrophils # 3.88 10^3/uL (1.8-7.7); Neutrophils % 53.4 %; Nucleated Red Blood Cells % 0 %; Platelet Count 235 10^3/cmm (130-400); Red Blood Count 4.36 10^6/uL (4.1-5.3); Red Cell Distribution Width 13.7 % (12.1-15.1); White Blood Count 7.3 10^3/uL (4.0-10.0)
[2022-12-30 06:34] LABS: Alanine Aminotransferase 16 U/L (0-33); Albumin Level 3.6 g/dL (3.5-5.2); Alkaline Phosphatase 64 U/L (35-105); Anion Gap 13.8 (5-19); Aspartate Amino Transferase 20 U/L (0-32); Blood Urea Nitrogen 13 mg/dL (8-23); Carbon Dioxide 28 mmol/L (22-29); Chloride 104 mmol/L (98-107); Globulin 2.5 g/dL (1.3-4.6); Glucose 98 mg/dL (65-115); Osmolality Calculated 294 mOsm/kg (285-295); Potassium 3.8 mmol/L (3.5-5.1); Sodium 142 mmol/L (136-145); Total Bilirubin 0.3 mg/dL (0.15-1.2); Total Protein 6.1 g/dL (6.6-8.7)
[2022-12-30] MEDS: heparin 5,000 unit/mL INJ 1 mL 5000 UNIT SUBCUT ×2 (08:42→20:58)
[2022-12-30] MEDS: aspirin 81 mg EC Tablet PO (08:42)
[2022-12-30] MEDS: amlodipine 5 mg Tablet PO ×2 (08:42→17:48)
[2022-12-30] MEDS: levETIRAcetam 1,000 mg/10 mL UDC 500 MG PO ×2 (08:43→17:48)
[2022-12-30] MEDS: carvedilol 6.25 mg Tablet PO ×2 (10:48→17:48)
--- NOTE | 2022-12-30 16:24 | PM.PN ---
Subjective Subjective: No acute events overnight. Patient is back to her baseline mentation. Awake and alert. Able to have complete conversation without any signs of expressive aphasia today. Has remained hemodynamically stable and afebrile. Blood pressure slightly elevated than goal. Working with physical therapy. Appreciate blood work. Vitals/I&O/Wt Last Vital Signs Temp 97.7 F 12/30/22 08:00 Pulse 92 12/30/22 12:00 Resp 16 12/30/22 12:00 BP 141/82 12/30/22 12:00 Pulse Ox 93 12/30/22 12:00 O2 Del Method Room Air 12/29/22 04:00 12/30/22 12/30/22 12/30/22 06:59 14:59 22:59 Intake Total 480 / 480 Balance 480 / 480 Weight last 48 hrs Weight 74.474 kg Weight 74.48 kg Physical Exam Narrative: General: No acute distress, AOx3. No expressive aphasia. Able to have complete conversation. HEENT: PERRLA, pupils bilaterally equal and reactive Chest: Normal respiratory breath sounds over lower lung yates without any CVS: S1-S2 regular, no murmurs, no tachycardia, no gallops, no rubs Abdomen: Soft, nontender, no organomegaly, bowel sounds present, morbidly obese Neuro: Moving all limbs, no facial deformity, no focal deficits Data 12/30/22 05:33 12/30/22 05:33 Micro: Microbiology 12/28/22 20:48 Blood Culture - Preliminary Blood NEGATIVE TO DATE 12/28/22 20:44 Blood Culture - Preliminary Blood NEGATIVE TO DATE A&P Assessment and plan (1) Syncope and collapse: (2) Expressive aphasia: (3) Personality change: (4) Metabolic encephalopathy: (5) Complicated urinary tract infection: Plan 87-year-old female brought from the senior care with symptoms of syncope and collapse followed by acute metabolic encephalopathy along with expressive aphasia with history of having recurrent episodes in the last 2 years along with change in personality having blood work and work-up suspicious of UTI. Acute metabolic encephalopathy/expressive aphasia/personality changes: Acute abnormality ruled out with CT head in the ER. Cannot rule out chronic stroke versus press syndrome given uncontrolled hypertension in ER versus toxic metabolic encephalopathy in setting of UTI. Meningitis less likely. Cannot rule out limbic encephalitis. Appreciate CTA head and neck results. MRI of awaited. Vitamin B12 normal low, TSH normal, folate normal. Copper and lead levels awaited. If above work-up negative patient would benefit from lumbar puncture to rule out NMDA. Hold off on Zanaflex and Mobic for now. Appreciate neurology recommendations. PT/OT/speech evaluation. Aspirin 81 mg daily, atorvastatin 20 mg daily. A1c 5.8, lipid panel appreciated. Follow-up blood culture, urine culture. Empirically start on ceftriaxone for now. Started on Keppra 500 mg every 12 hourly as per recommendations from neurology for the possibility of stroke though unlikely for now. Seizure precautions. Hypertension: Uncontrolled. Goal blood pressure less than 140/90 mmHg. Blood pressure slightly better controlled now. Start on amlodipine 5 mg oral daily. Will uptitrate as per goal blood pressures. CODE STATUS: skilled nursing papers reviewed. Patient is DNR/DNI. Advance diet as per speech evaluation. Heparin 5000 every 8 hourly for DVT prophylaxis Famotidine for PUD prophylaxis. Plan for the day: Continue to hold off on Zanaflex and Mobic. Continue with aspirin and atorvastatin. Goal blood pressure less than 140/90 mmHg. Blood pressure is elevated. Increase amlodipine to 5 mg twice daily. Add Coreg 6.25 mg twice daily. Urine cultures growing gram-negative rods. For now continue with IV ceftriaxone. Advance diet as per speech evaluation. Appreciate PT evaluation. Advised SNF placement. Discharge planning: Patient currently lives at assisted living. Agreeable for SNF placement. Case management alerted. Plan to discharge to SNF once accepted. Attestations Medical Necessity Statement*: Requires further hospitalization for management of acute metabolic encephalopathy with expressive aphasia and personality changes while safe discharge planning is sought. 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
[2022-12-30] MEDS: cefTRIAXone 1,000 MG in sodium chloride 0.9% (plus) 50 ML 100 MG IV (17:48)
[2022-12-30] MEDS: acetaminophen 325 mg Tablet 650 MG PO (20:58)
[2022-12-30] MEDS: atorvastatin 40 mg Tablet PO (20:58)
[2022-12-31] VITALS (7 sets, daily range): BP systolic 131–180; BP diastolic 75–83; PULSE 85–96; RESP 16–18; TEMP 36.3–36.6; O2SAT 92–96
[2022-12-31] MEDS: heparin 5,000 unit/mL INJ 1 mL 5000 UNIT SUBCUT ×2 (08:18→20:11)
[2022-12-31] MEDS: amlodipine 5 mg Tablet PO ×2 (08:19→17:54)
[2022-12-31] MEDS: carvedilol 6.25 mg Tablet PO ×2 (08:19→17:53)
[2022-12-31] MEDS: levETIRAcetam 1,000 mg/10 mL UDC 500 MG PO ×2 (08:19→17:54)
[2022-12-31] MEDS: aspirin 81 mg EC Tablet PO (08:19)
[2022-12-31] MEDS: cyanocobalamin 1,000 mcg/mL SDV 1000 MCG IM (08:38)
[2022-12-31] MEDS: cefTRIAXone 1,000 MG in sodium chloride 0.9% (plus) 50 ML 100 MG IV (17:53)
--- NOTE | 2022-12-31 19:53 | PM.PN ---
Subjective Subjective: Patient denies any new complaints. Denies fevers, chills, nausea or emesis. Discussed we are looking for rehabilitation options and she is agreeable. Medications: Reviewed: Yes Vitals/I&O/Wt Last Vital Signs Temp 97.6 F 12/31/22 16:00 Pulse 93 12/31/22 16:00 Resp 16 12/31/22 16:00 BP 134/75 12/31/22 16:00 Pulse Ox 92 12/31/22 16:00 O2 Del Method Room Air 12/29/22 04:00 12/31/22 12/31/22 12/31/22 06:59 14:59 22:59 Intake Total 360 / 360 290 / 650 Balance 360 / 360 290 / 650 Weight last 48 hrs Weight 74.661 kg Weight 74.474 kg Physical Exam Narrative: General: Patient is awake and alert. Lying in bed. Head: Normocephalic. Atraumatic. EOM intact. Neck: No JVD. Cardiovascular: RRR. No gallops. No murmurs. No peripheral edema. Lungs: Clear to auscultation, no use of accessory muscles, no crackles or wheezes. Skin: No jaundice. No rashes. Abdomen: Normal bowel sounds, abdomen soft and nontender. Extremities: No cyanosis or clubbing. Musculoskeletal: No swollen or erythematous joints. Neurological: Moves all 4 extremities. No myoclonus. Data 12/30/22 05:33 12/30/22 05:33 Micro: Microbiology 12/28/22 17:20 Urine Culture - Final Urine,Clean Catch Klebsiella pneumoniae A&P Assessment and plan (1) Metabolic encephalopathy: Mentation has improved Holding off on sedating medications Follow-up heavy metal labs Continue therapy, evaluating for skilled placement Continue speech therapy (2) Syncope and collapse: Monitor closely Neurology evaluated Started on Keppra Seizure precautions (3) Complicated urinary tract infection: Urine culture reviewed Continue ceftriaxone (4) Expressive aphasia: No complaints today Continue to monitor (5) Personality change: Etiology unclear, could be related to her infection versus low B12 levels Continue to monitor (6) B12 deficiency: Start replacement with B12 injections daily (7) Uncontrolled hypertension: Blood pressure showed signs of improvement Continue with Norvasc Continue Coreg (8) TIA involving left internal carotid artery: Continue aspirin Continue Plavix Plan DVT prophylaxis: Heparin CODE STATUS: DNR Attestations Medical Necessity Statement*: Patient requires ongoing hospitalization for IV antibiotics, supportive care, and therapy. 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
[2022-12-31] MEDS: acetaminophen 325 mg Tablet 650 MG PO (20:08)
[2022-12-31] MEDS: atorvastatin 40 mg Tablet PO (20:11)
[2023-01-01] VITALS (8 sets, daily range): BP systolic 124–179; BP diastolic 66–83; PULSE 78–89; RESP 16–18; TEMP 36.2–36.6; O2SAT 92–95
[2023-01-01] MEDS: acetaminophen 325 mg Tablet 650 MG PO ×2 (02:55→08:30)
[2023-01-01] MEDS: heparin 5,000 unit/mL INJ 1 mL 5000 UNIT SUBCUT (08:30)
[2023-01-01] MEDS: cyanocobalamin 1,000 mcg/mL SDV 1000 MCG IM (08:30)
[2023-01-01] MEDS: amlodipine 5 mg Tablet PO (08:30)
[2023-01-01] MEDS: aspirin 81 mg EC Tablet PO (08:30)
[2023-01-01] MEDS: carvedilol 6.25 mg Tablet PO (08:30)
[2023-01-01] MEDS: levETIRAcetam 1,000 mg/10 mL UDC 500 MG PO (08:54)
--- NOTE | 2023-01-01 09:12 | PM.DCS ---
Discharge Providers Date of Admission: 12/28/22 17:55 Date of Discharge: January 01, 2023 Attending Provider at Admission: Vince Waters MD Attending Provider at Discharge: Bay العلي MD Consults: Neurology Primary Care Provider: Ravi Charlton DO Diagnoses at Discharge Discharge Diagnosis (1) Metabolic encephalopathy: Status: Acute (2) Syncope and collapse: Status: Acute (3) Complicated urinary tract infection: Status: Acute (4) Expressive aphasia: Status: Acute (5) Personality change: Status: Acute (6) B12 deficiency: Status: Acute (7) Uncontrolled hypertension: Status: Acute (8) TIA involving left internal carotid artery: Status: Acute Reason for Visit Reason for Visit: [facility] Hospital Course Hospital Course Beckie Jean is a 87 year old female with a past medical history significant for hypertension, lumbar stenosis, arthritis, edema, and nephrolithiasis who presented with altered mental status consisting of personality changes, expressive aphasia, and encephalopathy. Patient was admitted for further work-up which revealed acute complicated Klebsiella pneumoniae urinary tract infection, vitamin B12 deficiency, and uncontrolled hypertension. Her urinary tract infection was treated with broad-spectrum antibiotics, narrowed to cefdinir at discharge. Her vitamin B12 deficiency was treated with vitamin B12 IM injections x7 doses and oral maintenance therapy. Her uncontrolled hypertension was treated with antihypertensives as per discharge medication conciliation. Her mentation significantly improved. Given her history of transient ischemic attack, patient was started on aspirin as well as statin. Patient was also evaluated by neurology due to her mentation. She was started on Keppra per their recommendation. Patient was evaluated by speech therapy, recommending level 5 dysphagia diet. She also worked with occupational and physical therapy. Patient was found to have debility and physical deconditioning for which [facility]. Physical Exam Narrative: General: Patient is awake and alert. Pleasant. Head: Normocephalic. Atraumatic. EOM intact. Neck: No JVD. Cardiovascular: RRR. No gallops. No murmurs. No peripheral edema. Lungs: Clear to auscultation, no use of accessory muscles, no crackles or wheezes. Skin: No jaundice. No rashes. Abdomen: Normal bowel sounds, abdomen soft and nontender. Extremities: No cyanosis or clubbing. Musculoskeletal: No swollen or erythematous joints. Neurological: Moves all 4 extremities. No myoclonus. Discharge Data Studies Completed and Pending Completed Studies During Hospitalization Category Date Time Status CT angio headneck* [id number] Stat Cat Scan 12/28/22 18:[address] head thrombolytic [id number] Stat Cat Scan 12/28/22 15:31 Completed MR head wo con* [id number] Stat MRI 12/29/22 18:12 Completed CV. echo complete* [id number] Stat Ultrasound 12/29/22 18:10 Completed Pending at discharge Category Date Time Status Blood Culture Stat Lab 12/28/22 20:48 Results Copper Level Routine Lab 12/28/22 23:12 Received SARS Covid-2 Antigen Routine Lab 01/01/23 08:19 Uncollected Radiology Impressions Head/Neck CTA 12/28/22 18:10 IMPRESSION: 1. Patent anterior circulation branches. 2. The non dominant left vertebral artery terminates in the PICA with age-indeterminate occlusion beyond this point - potentially chronic; correlate with patient's symptoms. The basilar artery is small in caliber with moderate to high-grade multifocal stenoses distally. Both accounting lecturer has anatomic variant origin. IMPRESSION: No occlusion or significant stenosis. REFERENCES: NASCET CRITERIA. The degree of stenosis in the cervical segment of the internal carotid artery is based on NASCET criteria. Normal is no stenosis. Mild is less than 50% stenosis. Moderate is 50-69% stenosis. Severe is 70% to 99% stenosis. Total occlusion is no detectable patent lumen. ADDENDUM: 12/28/221906 Findings were discussed with Dr. Galan at 12/28/2022 7:05 PM CDT. Head MRI 12/29/22 18:12 IMPRESSION: 1. No evidence of acute intracranial abnormality. No evidence of acute infarction, hemorrhage, or mass. 2. Atrophy and microvascular disease. Laboratory Results WBC 7.3 10^3/uL (4.0-10.0) 12/30/22 05:33 RBC 4.36 10^6/uL (4.1-5.3) 12/30/22 05:33 Hgb 14.0 g/dL (11.5-15.3) 12/30/22 05:33 Hct 43.0 % (37.0-47.0) 12/30/22 05:33 MCV 98.6 fl (81-99) 12/30/22 05:33 MCH 32.1 pg (28.0-34.0) 12/30/22 05:33 MCHC 32.6 g/dL (30.0-36.0) 12/30/22 05:33 RDW 13.7 % (12.1-15.1) 12/30/22 05:33 Plt Count 235 10^3/cmm (130-400) 12/30/22 05:33 MPV 10.0 fL (7.4-10.4) 12/30/22 05:33 Neut % (Auto) 53.4 % 12/30/22 05:33 Lymph % (Auto) 30.7 % 12/30/22 05:33 [place]ary % (Auto) 11.6 % 12/30/22 05:33 Eos % (Auto) 3.3 % 12/30/22 05:33 Baso % (Auto) 0.7 % 12/30/22 05:33 Neut # (Auto) 3.88 10^3/uL (1.8-7.7) 12/30/22 05:33 Lymph # (Auto) 2.2 10^3/uL (0.8-4.8) 12/30/22 05:33 [place]ary # (Auto) 0.8 10^3/uL (0.2-0.9) 12/30/22 05:33 Eos # (Auto) 0.2 10^3/uL (0.0-0.8) 12/30/22 05:33 Baso # (Auto) 0.1 10^3/uL (0.0-0.1) 12/30/22 05:33 Nucleated RBC % (auto) 0 % 12/30/22 05:33 Nucleated RBCs # 0.0 /100WBC 12/30/22 05:33 PT 13.20 SECONDS (12.1-14.9) 12/28/22 15:46 INR 0.97 (0.8-1.2) 12/28/22 15:46 APTT 24.3 SECONDS (23.9-36.7) 12/28/22 15:46 Sodium 142 mmol/L (136-145) 12/30/22 05:33 Potassium 3.8 mmol/L (3.5-5.1) 12/30/22 05:33 Chloride 104 mmol/L (98-107) 12/30/22 05:33 Carbon Dioxide 28 mmol/L (22-29) 12/30/22 05:33 Anion Gap 13.8 (5-19) 12/30/22 05:33 BUN 13 mg/dL (8-23) 12/30/22 05:33 Creatinine 0.6 mg/dL (0.5-0.9) 12/30/22 05:33 GFR Calculation Not Reportable 12/30/22 05:33 Glucose 98 mg/dL (65-115) 12/30/22 05:33 POC Glucose 94 mg/dL (70-110) 12/28/22 15:30 Estimat Average Glucose 120 12/29/22 04:45 Hemoglobin A1c 5.8 % (4.0-6.0) 12/29/22 04:45 Calculated Osmolality 294 mOsm/kg (285-295) 12/30/22 05:33 Calcium 9.0 mg/dL (8.5-10.5) 12/30/22 05:33 Phosphorus 3.4 mg/dL (2.5-4.5) 12/29/22 04:45 Magnesium 1.9 mg/dL (1.7-2.3) 12/29/22 04:45 Iron 78 ug/dL (37-145) 12/28/22 15:46 TIBC 346 mcg/dl 12/28/22 15:46 % Saturation 22.5 % (20-50) 12/28/22 15:46 Unsat Iron Binding 268 ug/dL (112-347) 12/28/22 15:46 Total Bilirubin 0.3 mg/dL (0.15-1.2) 12/30/22 05:33 AST 20 U/L (0-32) 12/30/22 05:33 ALT 16 U/L (0-33) 12/30/22 05:33 Alkaline Phosphatase 64 U/L (35-105) 12/30/22 05:33 Troponin T Baseline 19 ng/L (0-10) H 12/28/22 15:46 Troponin T 120 Minute 15.99 ng/L (0-10) H 12/28/22 17:45 Delta Troponin T -3.01 ABS# (0-10) L 12/28/22 17:45 Troponin T Hi Sens 6Hr 19.11 ng/L (0-10) H 12/28/22 21:55 Troponin T Hi Sens 6Hr Delta 0.11 ng/L (0-12) 12/28/22 21:55 NT-Pro-B Natriuret Pep 756 pg/mL (0-450) H 12/28/22 15:46 Total Protein 6.1 g/dL (6.6-8.7) L 12/30/22 05:33 Albumin 3.6 g/dL (3.5-5.2) 12/30/22 05:33 Globulin 2.5 g/dL (1.3-4.6) 12/30/22 05:33 Triglycerides 116 mg/dL (0-150) 12/29/22 04:45 Cholesterol 173 mg/dL (0-200) 12/29/22 04:45 LDL Cholesterol, Calc 89 mg/dL (50-129) 12/29/22 04:45 HDL Cholesterol 61 mg/dL (60-100) 12/29/22 04:45 LDL/HDL Ratio 1.46 RATIO (0.00-3.22) 12/29/22 04:45 Cholesterol/HDL Ratio 2.84 mg/dL (0.0-4.40) 12/29/22 04:45 Vitamin B12 259 pg/mL (232-1245) 12/28/22 15:46 Folate 6.8 ng/mL (4.8-37.3) 12/29/22 04:45 Procalcitonin 0.04 ng/mL (0-0.5) 12/28/22 17:45 TSH 1.05 uIU/mL (0.27-4.20) 12/28/22 15:46 Urine Color Yellow (Yellow) 12/28/22 17:20 Urine Appearance Clear (CLEAR) 12/28/22 17:20 Urine pH 7 (5-7) 12/28/22 17:20 Ur Specific [place] 1.005 (1.005-1.030) 12/28/22 17:20 Urine Protein Neg (Negative) 12/28/22 17:20 Urine Glucose (UA) Norm (Normal) 12/28/22 17:20 Urine Ketones 1+ (Negative) H 12/28/22 17:20 Urine Blood 2+ (Negative) H 12/28/22 17:20 Urine Nitrate Positive (Negative) H 12/28/22 17:20 Urine Bilirubin Neg (Negative) 12/28/22 17:20 Urine Urobilinogen Norm mg/dL (Negative) 12/28/22 17:20 Ur Leukocyte Esterase Trace (Negative) H 12/28/22 17:20 Urine RBC 0-4 /hpf (0-2) H 12/28/22 17:20 Urine WBC 10-15 /hpf (0-5) H 12/28/22 17:20 Ur Squamous Epith Cells 0-4 /hpf (0-5) H 12/28/22 17:20 Amorphous Sediment Not Reportable 12/28/22 17:20 Urine Bacteria 4+ /hpf (NONE) H 12/28/22 17:20 Urine Mucus 1+ /hpf 12/28/22 17:20 Urine Opiates Screen Negative ng/mL (Negative) 12/28/22 17:20 Ur Barbiturates Screen Negative ng/mL (Negative) 12/28/22 17:20 Ur Phencyclidine Scrn Negative ng/mL (Negative) 12/28/22 17:20 Ur Amphetamines Screen Negative ng/mL (Negative) 12/28/22 17:20 U Benzodiazepines Scrn Negative ng/mL (Negative) 12/28/22 17:20 Urine Cocaine Screen Negative ng/mL (Negative) 12/28/22 17:20 U Marijuana (THC) Screen Negative ng/mL (Negative) 12/28/22 17:20 Ethyl Alcohol < 10 mg/dL (0-10) 12/28/22 15:46 Lead Sample Type Not Reportable 12/29/22 04:45 Lead <1.0 mcg/dL (<3.5) 12/29/22 04:45 RPR Nonreactive (Nonreactive) 12/28/22 15:46 Vitals Last Vital Signs Temp 97.5 F L 01/01/23 09:00 Pulse 89 01/01/23 09:00 Resp 16 01/01/23 09:00 BP 179/83 01/01/23 09:00 Pulse Ox 92 01/01/23 07:49 O2 Del Method Room Air 01/01/23 07:49 Discharge Plan Discharge Patient Disposition: Xfer SNF Condition: Stable Prescriptions: New atorvastatin 40 mg Tablet 40 mg PO BEDTIME 30 Days Qty: 30 0RF carvedilol 6.25 mg Tablet 6.25 mg PO BID 30 Days Qty: 60 0RF levetiracetam 100 mg/mL Solution 500 mg PO BID 30 Days Qty: 300 0RF Rx Instructions: may substitute formulation if needed acetaminophen 325 mg Tablet 650 mg PO Q6H PRN (Reason: Mild/Mod Pain Or Temp >/= 101) 30 Days Qty: 30 0RF amlodipine 5 mg Tablet 5 mg PO BID 30 Days Qty: 60 0RF cyanocobalamin (vitamin B-12) 1,000 mcg/mL Solution 1,000 mcg IM DAILY 6 Days Qty: 6 0RF lactulose 20 gram/30 mL Solution 10 g PO DAILY PRN (Reason: Constipation (see protocol)) 30 Days Qty: 300 0RF cefdinir 300 mg capsule 300 mg PO BID 4 Days Qty: 8 0RF cyanocobalamin (vitamin B-12) 1,000 mcg capsule 1,000 mcg PO DAILY Qty: 30 0RF Continued meloxicam 15 mg tablet 15 mg PO DAILY Qty: 30 5RF Discharge Orders: Discharge Order (Routine); Ordered 01/01/23 Ordered By: Bay العلي Referrals: Raiv Charlton DO [Primary Care Provider] - 4-7 days Discharge Diet: Advance as tolerated, Usual diet and Cardiac Discharge Activity: Resume usual activity, Increase activity as tolerated and Return to work/school after cleared by PCP/Specialist Patient Instructions: Vitamin B12 Deficiency (GEN), Urinary Tract Infection in Older Adults (DC) Activity Restrictions/Additional Instructions: 1. Take medications as prescribed. 2. Follow-up with providers. 3. Continue therapy. 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
--- NOTE | 2023-01-01 09:20 | PC.NURSE ---
Dr. العلي at bedside and educated patient on risk of aspiration when drinking regular fluids. Patient verbalized understanding and requests regular fluids instead of thickened fluids currently ordered. Lung sounds clear and patient observed drinking regular fluids without difficulty.
--- NOTE | 2023-01-01 09:47 | PC.CHAP ---
Pastoral Care Encounter/Spiritual Assessment Type of Contact [] Declined final touch up painter visit [] Patient/Family/Request visit [] Outpatient visit [] Follow-up visit [] Physician referral [] Code/Alert [x] Routine visit [] Staff referral [] Actively dying [] Patient sleeping [] Family support [] [] Out of room [] Palliative care [] [] Receiving care in room [] Pre-surgical visit [] Trauma [] Long length of stay [] ICU visit [] Other: Relational/Emotional Strength [] Patient feels connected with others/family/visitors/staff [] Distress [] Loneliness/isolation [] Abandonment Spirituality of Patient [x] Person of Sindhu [] Attends Adventist of their Sindhu x[] Believes in Prayer [] Reads Bible or Restorationism materials [] There are Spiritual issues to be addressed Egg Producer Interventions [x] Prayer [x] Active listening [] Non-anxious presence [x] Spiritual/emotional support [] Crisis/trauma care [] Spiritual counseling [] Bereavement support [] Provided bereavement packet [] Provided Bible/devotional materials [] Provided toy/stuffed animal, coloring book to patient or family member [] Provided Communion [] Anointing/[place] [] Salvation [] Completed spiritual assessment [] Other: Impact on Illness or Injury [] Angry [] Fearful [] Anxious [] Often cries [] Exhaustion [] Unable to work [] Unable to attend faith [] Unable to walk/stand [] Unable to read [] Unable to drive [] Unable to eat/drink [] Unable to sleep [] Unable to be with family [] Patient intubated [] Other: Summary Time spent with patient 5 min
[2023-01-01 11:40] LABS: SARS Covid-2 Antigen negative (Negative)
[2023-01-02 14:44] LABS: Copper Level 102 mcg/dL (70-175)
== END 2023-01-01 13:54 | disposition skilled nursing facility (03) | DRG 689 ==
LOC: ER 17:54 → MEDSURG 19:46
PROVIDERS: Admitting Provider Student in an Organized Health Care Education/Training Program; Emergency Provider Emergency Medicine; PCP Family Medicine; Visit Provider Internal Medicine
DX: N39.0 Urinary tract infection, site not specified (principal); G93.41 Metabolic encephalopathy; R47.01 Aphasia; B96.1 Klebsiella pneumoniae [K. pneumoniae] as the cause of diseases classified elsewhere; I10 Essential (primary) hypertension; M48.061 Spinal stenosis, lumbar region without neurogenic claudication; E53.8 Deficiency of other specified B group vitamins; Z86.73 Personal history of transient ischemic attack (TIA), and cerebral infarction without residual deficits; R13.10 Dysphagia, unspecified; R55 Syncope and collapse
CPT/HCPCS: 36415; 36416; 70450; 70496; 70498; 70551; 80053; 80061; 80306; 80307; 81001; 82525; 82607; 82746; 82962; 83036; 83540; 83550; 83655; 83735; 83880; 84100; 84145; 84443; 84484; 85025; 85610; 85730; 86592; 87040; 87077; 87086; 87186; 87426; 92526; 92610; 93005; 93306; 94664; 96365; 96372; 96375; 97110; 97161; 97165; 97530; 99285; J0696; J1644; J1953; J3420; Q9967

== ENCOUNTER 2023-01-23 02:52 | Emergency (ER) | payer MEDICARE, OTHER, SELFPAY ==
[2023-01-23 02:53] VITALS: BP 160/67; PULSE 69; RESP 18; TEMP 36.7; O2SAT 97; BMI 28.7
--- NOTE | 2023-01-23 03:10 | XRR_ITS ---
PROCEDURE INFORMATION: Exam: XR Abdomen Exam date and time: 01/23/2023 3:13 AM Age: 87 years old Clinical indication: Constipation TECHNIQUE: Imaging protocol: Radiologic exam of the abdomen. Views: Frontal supine view of the abdomen. 1 View. COMPARISON: CR XR lumbar spine f/e only [id number] 10/05/2022 12:38 PM FINDINGS: Gastrointestinal tract: Large colonic fecal volume. Negative for bowel obstruction. Intraperitoneal space: No free air. Bones/joints: Unremarkable. XR/XR abdomen 1V* [id number] IMPRESSION: 1. Constipation. 2. Negative for acute abdominal pathology.
--- NOTE | 2023-01-23 03:10 | W.ED.ABDPA2 ---
HPI - Abdominal Pain General: Chief Complaint: Abdominal Pain Stated Complaint: abd pain Time Seen by Provider: 01/23/23 02:54 History of Present Illness: Patient presents from residential by EMS with complaints of constipation over about the last 4 days. Patient does have MiraLAX and milk of magnesia last 2 days with no results. Patient declined to have an enema and/or suppository at the residential. Patient does not have any nausea or vomiting. Review of Systems General: Reports: 10 or more systems reviewed and unremarkable except in HPI and below PFSH ED PFSH: Medical History Blepharitis Candidal intertrigo Establishing care with new doctor, encounter for Expressive aphasia HTN (hypertension) Lumbar back pain Lumbar spinal stenosis Metabolic encephalopathy Personality change Stroke Syncope and collapse TIA involving left internal carotid artery Verruca vulgaris Family History Other CAD (coronary artery disease) Cancer Social History Smoking and tobacco status: never smoked Alcohol intake: never Adopted: No Caregiver/support person: No Lives independently: No Household members: other Housing: Half-Way Physical Exam Const: COMMON NORMALS: no acute distress, average body habitus, patient oriented x3, no limitations, healthy appearing, alert and well nourished HENMT: COMMON NORMALS: normocephalic, atraumatic, hearing grossly normal bilaterally, external ears normal, Normal external nose present and moist oral mucous membranes HEAD & SCALP: normocephalic and atraumatic NOSE: Normal external nose present EXTERNAL EAR: Yes external ears normal Eye: COMMON NORMALS: Equal, round and reactive pupils present, EOMs intact bilaterally, conjunctivae normal and no scleral icterus CONJUNCTIVA: Yes conjunctivae normal PUPIL: Yes Equal, round and reactive pupils present Neck/C-Spine: COMMON NORMALS: full ROM, no lymphadenopathy, supple, no meningeal signs, no JVD and Thyroid normal THYROID: Thyroid normal Lymph: LYMPHATIC: no lymphadenopathy noted Chest: COMMONS NORMALS: normal inspection of the chest and normal palpation of entire chest wall Resp: COMMON NORMALS: normal respiratory effort, No retractions, No use of accessory muscles and clear to auscultation bilaterally AUSCULTATION: clear to auscultation bilaterally Cardio: COMMON NORMALS: no JVD, regular rate, regular rhythm, S1 normal heart sound present, S2 normal heart sound present, No gallops present (Cardio), No clicks present (Cardio), No murmurs present (Cardio) and No rub (Cardio) RATE: regular rate RHYTHM: regular rhythm HEART SOUNDS: S1 normal heart sound present and S2 normal heart sound present GI: COMMON NORMALS: Normal to inspection, nondistended, normoactive bowel sounds present, Soft to palpation, No hepatosplenomegaly present and no masses; negative for non-tender (Diffusely mildly tender to palpation) PALPATION: Yes Soft to palpation and Yes No hepatosplenomegaly present Neuro: COMMON NORMALS: patient oriented x3 SENSORIUM/ORIENTATION: Yes alert MENINGEAL SIGNS: Yes no meningeal signs Course Vital Signs: Vital signs: Vital Signs Temperature 98.1 F 01/23/23 02:53 Pulse Rate 89 01/23/23 04:28 Respiratory Rate 18 01/23/23 02:53 Blood Pressure 160/67 01/23/23 04:28 Pulse Oximetry 96 01/23/23 04:28 Oxygen Delivery Me thod Nasal Cannula 01/23/23 04:28 MDM - Abdominal Pain Medical Decision Making Patient presents to the ER with complaints of constipation. Patient's been on MiraLAX for the last 2 days with no results. Patient was given Dulcolax suppository here which she had minimal results. Patient was given a soapsuds enema. Anticipate this will work better and she will be discharged home. Differential Diagnosis Likely abdominal pain and constipation; Unlikely acute appendicitis, calculus of kidney, diverticulitis, endometriosis, gastroenteritis, pancreatitis or small bowel obstruction Medical Records I reviewed the patient's medical records. Lab Data I reviewed the patient's lab results. Discharge Plan Discharge Patient Disposition: Home Clinical Impression: Constipation Condition: Stable Prescriptions: New Enulose 10 gram/15 mL solution 15 ml PO TID PRN (Reason: constipation) Qty: 473 0RF No Action meloxicam 15 mg tablet 15 mg PO DAILY Qty: 30 5RF atorvastatin 40 mg Tablet 40 mg PO BEDTIME 30 Days Qty: 30 0RF carvedilol 6.25 mg Tablet 6.25 mg PO BID 30 Days Qty: 60 0RF levetiracetam 100 mg/mL Solution 500 mg PO BID 30 Days Qty: 300 0RF Rx Instructions: may substitute formulation if needed acetaminophen 325 mg Tablet 650 mg PO Q6H PRN (Reason: Mild/Mod Pain Or Temp >/= 101) 30 Days Qty: 30 0RF amlodipine 5 mg Tablet 5 mg PO BID 30 Days Qty: 60 0RF lactulose 20 gram/30 mL Solution 10 g PO DAILY PRN (Reason: Constipation (see protocol)) 30 Days Qty: 300 0RF cyanocobalamin (vitamin B-12) 1,000 mcg capsule 1,000 mcg PO DAILY Qty: 30 0RF Discharge Orders: Discharge ED (Routine); Ordered 01/23/23 Ordered By: Umer Moyer Referrals: Ravi Charlton DO [Primary Care Provider] - 1 week Patient Instructions: Constipation (ED) Activity Restrictions/Additional Instructions: Please increase your lactulose up to 3 times a day as needed for constipation. Please follow-up with your family practice physician within the next week or sooner for further evaluation and treatment. Coding Level of Care Code ED [place] for Lawson Barron
[2023-01-23 03:20] VITALS: BP 160/67; PULSE 89; O2SAT 97
[2023-01-23] MEDS: bisacodyl 10 mg Supp PR (04:27)
[2023-01-23 04:28] VITALS: BP 160/67; PULSE 89; O2SAT 96
--- NOTE | 2023-01-23 05:28 | PC.NURSE ---
Pt only produced very small hard stool after suppository. Dr Moyer was informed.
[2023-01-23 05:46] VITALS: BP 112/74; PULSE 111; O2SAT 93
--- NOTE | 2023-01-23 05:46 | PC.NURSE ---
Pt given soaps suds enema per Dr Moyer's orders
[2023-01-23 06:09] VITALS: BP 160/67; PULSE 104; O2SAT 99
--- NOTE | 2023-01-23 06:29 | PC.NURSE ---
Gave report to Mary Jane at [facility]. All questions and concerns addressed at time of report. Nursing staff at [facility] was told that transport would arrive after 0700 to [facility] and transport back to [facility].
[2023-01-23 07:26] VITALS: BP 147/85; PULSE 98; O2SAT 99
== END 2023-01-23 09:02 | disposition home or self-care (01) ==
PROVIDERS: Emergency Provider Emergency Medicine; PCP Family Medicine
DX: K59.00 Constipation, unspecified (principal); I10 Essential (primary) hypertension; Z86.73 Personal history of transient ischemic attack (TIA), and cerebral infarction without residual deficits
CPT/HCPCS: 74018; 99283

== ENCOUNTER 2023-01-28 01:56 | Emergency (ER) | payer MEDICARE, OTHER, SELFPAY ==
[2023-01-28 01:57] VITALS: BP 149/77; RESP 18; TEMP 36.8; O2SAT 95; BMI 30.2
--- NOTE | 2023-01-28 02:18 | CTR_ITS ---
PROCEDURE INFORMATION: Exam: CT Abdomen And Pelvis With Contrast Exam date and time: 01/28/2023 2:27 AM Age: 87 years old Clinical indication: Abdominal pain; Generalized; Prior surgery; Surgery date: 6+ months; Surgery type: Hysterectomy; Patient HX: EMS arrival from correction C/O diffuse abd pain. Diagnosed with constipation on er visit 01/23/2023. TECHNIQUE: Imaging protocol: Computed tomography of the abdomen and pelvis with contrast. Radiation optimization: All CT scans at this facility use at least one of these dose optimization techniques: automated exposure control; mA and/or kV adjustment per patient size (includes targeted exams where dose is matched to clinical indication); or iterative reconstruction. Contrast material: OMNI 350; Contrast volume: 100 ml; Contrast route: INTRAVENOUS (IV); REPORTING DATA: Count of CT and Cardiac NM exams in prior 12 months: This patient has received 2 known CTs and 0 known cardiac nuclear medicine studies in the 12 months prior to the current study. COMPARISON: CR (ABDOMEN, ) 01/23/2023 3:13 AM RADIATION DOSE METRICS: Total DLP (mGy-cm): 755.25 FINDINGS: Lungs: Mild COPD. Lung base atelectasis or scarring. Heart: The heart is large. Diaphragm: Small hiatal hernia. Liver: Unremarkable. No enhancing mass. Gallbladder and bile ducts: Mild gallbladder wall thickening possible. Pancreas: Pancreas is rather fatty replaced. No enhancing mass. Spleen: The spleen is not enlarged. No suspicious enhancing mass is noted. Adrenal glands: Normal. No mass. Kidneys and ureters: Small bilateral renal cysts likely. No enhancing mass. Stomach and bowel: The colon is rather fecal filled. Mild sigmoid diverticulosis. No small bowel obstruction, abscess or free air. Appendix: Normal appendix Intraperitoneal space: Unremarkable. No free air. No suspicious fluid collection. Vasculature: Advanced diffuse vascular calcification noted. Small pelvic phleboliths. Lymph nodes: No enlarged lymph nodes. Urinary bladder: Unremarkable as visualized. Reproductive: Small left adnexal cyst. Absent uterus. Small right ovarian cyst. Bones/joints: Diffuse osteopenia. Soft tissues: No acute or suspicious finding noted. CT/CT abdomen pelvis w con* [id number] IMPRESSION: 1. Questionable gallbladder wall thickening. Recommend ultrasound gallbladder. 2. Nothing else acute is suspected. 3. Numerous chronic findings above with fecal filled colon suggesting constipation and postop changes. COMMENTS: Consistent with the [employer]'s Incidental Findings Committee white paper (J Am Allyson Radiol 2018): Any incidental renal lesion less than 1 cm or classified as too small to characterize, or any incidental cystic renal lesion characterized as simple-appearing, is likely benign. No follow-up imaging is recommended for these lesions per consensus recommendations based on imaging criteria.
[2023-01-28] MEDS: iohexol 350 mg/mL 500 mL Btl (per mL) IV (02:29)
[2023-01-28 02:44] LABS: Basophils # 0.1 10^3/uL (0.0-0.1); Basophils % 0.4 %; Eosinophils # 0.5 10^3/uL (0.0-0.8); Eosinophils % 3.5 %; Hematocrit 32.8 % (36-47); Lymphocytes # 2.4 10^3/uL (0.8-4.8); Lymphocytes % 18.1 %; Mean Corpuscular HGB Conc 32.9 g/dL (30-55); Mean Corpuscular Hemoglobin 33.1 pg (27-33); Mean Corpuscular Volume 100.6 fl (85-98); Mean Platelet Volume 9.8 fL (7.4-10.4); Monocytes # 1.8 10^3/uL (0.2-0.9); Monocytes % 13.4 %; Neutrophils # 8.42 10^3/uL (1.8-7.7); Neutrophils % 64.2 %; Nucleated Red Blood Cells % 0 %; Platelet Count 336 10^3/cmm (157-399); Red Blood Count 3.26 10^6/uL (3.85-5.65); Red Cell Distribution Width 13.3 % (12.1-15.1); White Blood Count 13.11 10^3/uL (3.29-11.43)
[2023-01-28] MEDS: sodium chloride 0.9% 1,000 ML 999 ML IV (02:50)
[2023-01-28 02:52] LABS: Alanine Aminotransferase 16 U/L (0-33); Albumin Level 4.4 g/dL (3.5-5.2); Alkaline Phosphatase 75 U/L (35-105); Anion Gap 15.3 (5-19); Aspartate Amino Transferase 16 U/L (0-32); Blood Urea Nitrogen 25 mg/dL (8-23); C Reactive Protein 16.5 mg/L (0.0-4.9); Calcium 9.7 mg/dL (8.5-10.5); Carbon Dioxide 26 mmol/L (22-29); Chloride 99 mmol/L (98-107); Globulin 2.9 g/dL (1.3-4.6); Glucose 111 mg/dL (65-115); Osmolality Calculated 287 mOsm/kg (285-295); Potassium 4.3 mmol/L (3.5-5.1); Sodium 136 mmol/L (136-145); Total Bilirubin 0.2 mg/dL (0.15-1.2); Total Protein 7.3 g/dL (6.6-8.7)
[2023-01-28] MEDS: ondansetron 2 mg/ML SDV 2 mL 4 MG IVP (03:03)
[2023-01-28] MEDS: morphine 4 mg/mL SDV 1 mL IVP (03:03)
[2023-01-28 03:07] LABS: Lactic Sepsis W/Reflex 0.8 mmol/L (0.5-2.2)
--- NOTE | 2023-01-28 03:10 | W.ED.ABDPA2 ---
HPI - Abdominal Pain General: Chief Complaint: Abdominal Pain Stated Complaint: Back pain/ Abd Pain Time Seen by Provider: 01/28/23 02:10 History of Present Illness: 87-year-old female residential patient sent by EMS to the ER this morning for back pain and abdominal pain. She was seen 2 days prior and diagnosed with constipation. She continues to have back pain and belly pain. No fever. No vomiting. She evidently is having bowel movements. She states I would like to know what is wrong with my back . No ocular pain to her legs. Associated Symptoms: Denies chills, diarrhea, fever(s), hematochezia, nausea and vomiting Review of Systems Const: Denies: fever(s), chills or body aches Eyes: Denies: change in vision Card: Denies: chest pain or palpitations Resp: Denies: dyspnea, productive cough, non-productive cough or wheezing GI: Reports: abdominal pain; Denies: nausea, vomiting, diarrhea or hematochezia : Denies: flank pain or difficulty voiding Musc: Reports: back pain Skin/Breast: Denies: rash Neuro: Denies: headache(s), weakness in extremities, dizziness or confusion PFSH ED PFSH: Medical History Blepharitis Candidal intertrigo Establishing care with new doctor, encounter for Expressive aphasia HTN (hypertension) Lumbar back pain Lumbar spinal stenosis Metabolic encephalopathy Personality change Stroke Syncope and collapse TIA involving left internal carotid artery Verruca vulgaris Family History Other CAD (coronary artery disease) Cancer Social History Smoking and tobacco status: never smoked Alcohol intake: never Adopted: No Caregiver/support person: No Lives independently: No Household members: other Housing: Residential Physical Exam Const: COMMON NORMALS: no acute distress GENERAL APPEARANCE: cooperative; not ill appearing and not frail appearing HENMT: COMMON NORMALS: normocephalic, atraumatic and Normal external nose present HEAD & SCALP: normocephalic and atraumatic FACE & SINUS: normal facial exam and face symmetric NOSE: Normal external nose present Eye: COMMON NORMALS: Equal, round and reactive pupils present and EOMs intact bilaterally PUPIL: Yes Equal, round and reactive pupils present Neck/C-Spine: GENERAL: Yes trachea midline Chest: CHEST: Yes Symmetrical chest wall rise Resp: COMMON NORMALS: normal respiratory effort, No retractions, No use of accessory muscles and clear to auscultation bilaterally AUSCULTATION: clear to auscultation bilaterally Cardio: COMMON NORMALS: regular rate and regular rhythm RATE: regular rate RHYTHM: regular rhythm GI: COMMON NORMALS: Normal to inspection, nondistended, normoactive bowel sounds present PALPATION: Yes Tenderness to palpation present (GI) (mild diffuse) Neuro: DESIRE COMA SCALE: document GCS findings [place] coma scale eye opening: Spontaneous [place] coma scale verbal response: Orientated [place] coma scale motor response: Obey commands [place] coma scale total score: 15 SENSORY EXAM: Yes extremities (intact) Psych: COMMON NORMALS: speech normal SPEECH: Yes normal speech Skin: COMMON NORMALS: no rashes or lesions noted GENERAL SKIN EXAM: no rashes or lesions noted Course Vital Signs: Vital signs: Vital Signs Temperature 98.2 F 01/28/23 05:51 Pulse Rate 99 01/28/23 05:51 Respiratory Rate 16 01/28/23 05:51 Blood Pressure 151/69 01/28/23 05:51 Pulse Oximetry 98 01/28/23 05:51 MDM - Abdominal Pain Medical Decision Making 87-year-old female with abdominal and back pain. She notes that her back hurts worse than her belly. She is not on tender focally in her belly on exam. There is no right upper quadrant tenderness. Her white blood cell count is 13. Hemoglobin 11. Liver enzymes are normal. BUN is 25. CT shows questionable gallbladder wall thickening. No other acute findings. Urinalysis shows 10-15 white blood cells, nitrate positive and leukocyte Estrace trace positive urine. This is a cath urine. There is bacteria present. This is more likely the cause of her back pain than cholecystitis. She is nontender on palpation of her right upper quadrant. Last month she grew a pansensitive Klebsiella pneumonia from her urine. This had landed her in the hospital with acute encephalopathy. We will treat the UTI, have close outpatient follow-up. Constipation, present by CT, will also be treated. Lab Data 01/28/23 01:15 01/28/23 01:15 Labs/Radiology: Radiology Impressions Abdomen/Pelvis CT 01/28/23 02:18 IMPRESSION: 1. Questionable gallbladder wall thickening. Recommend ultrasound gallbladder. 2. Nothing else acute is suspected. 3. Numerous chronic findings above with fecal filled colon suggesting constipation and postop changes. COMMENTS: Consistent with the [employer]'s Incidental Findings Committee white paper (J Am Allyson Radiol 2018): Any incidental renal lesion less than 1 cm or classified as too small to characterize, or any incidental cystic renal lesion characterized as simple-appearing, is likely benign. No follow-up imaging is recommended for these lesions per consensus recommendations based on imaging criteria. Laboratory Results WBC 13.11 10^3/uL (3.29-11.43) H 01/28/23 01:15 RBC 3.26 10^6/uL (3.85-5.65) L 01/28/23 01:15 Hgb 10.80 g/dL (11.27-16.99) L 01/28/23 01:15 Hct 32.8 % (36-47) L 01/28/23 01:15 MCV 100.6 fl (85-98) H 01/28/23 01:15 MCH 33.1 pg (27-33) H 01/28/23 01:15 MCHC 32.9 g/dL (30-55) 01/28/23 01:15 RDW 13.3 % (12.1-15.1) 01/28/23 01:15 Plt Count 336 10^3/cmm (157-399) 01/28/23 01:15 MPV 9.8 fL (7.4-10.4) 01/28/23 01:15 Neut % (Auto) 64.2 % 01/28/23 01:15 Lymph % (Auto) 18.1 % 01/28/23 01:15 [place] % (Auto) 13.4 % 01/28/23 01:15 Eos % (Auto) 3.5 % 01/28/23 01:15 Baso % (Auto) 0.4 % 01/28/23 01:15 Neut # (Auto) 8.42 10^3/uL (1.8-7.7) H 01/28/23 01:15 Lymph # (Auto) 2.4 10^3/uL (0.8-4.8) 01/28/23 01:15 [place] # (Auto) 1.8 10^3/uL (0.2-0.9) H 01/28/23 01:15 Eos # (Auto) 0.5 10^3/uL (0.0-0.8) 01/28/23 01:15 Baso # (Auto) 0.1 10^3/uL (0.0-0.1) 01/28/23 01:15 Nucleated RBC % (auto) 0 % 01/28/23 01:15 Nucleated RBCs # 0.0 /100WBC 01/28/23 01:15 Sodium 136 mmol/L (136-145) 01/28/23 01:15 Potassium 4.3 mmol/L (3.5-5.1) 01/28/23 01:15 Chloride 99 mmol/L (98-107) 01/28/23 01:15 Carbon Dioxide 26 mmol/L (22-29) 01/28/23 01:15 Anion Gap 15.3 (5-19) 01/28/23 01:15 BUN 25 mg/dL (8-23) H 01/28/23 01:15 Creatinine 0.8 mg/dL (0.5-0.9) 01/28/23 01:15 GFR Calculation Not Reportable 01/28/23 01:15 Glucose 111 mg/dL (65-115) 01/28/23 01:15 Calculated Osmolality 287 mOsm/kg (285-295) 01/28/23 01:15 Lactic Acid 0.8 mmol/L (0.5-2.2) 01/28/23 02:44 Calcium 9.7 mg/dL (8.5-10.5) 01/28/23 01:15 Total Bilirubin 0.2 mg/dL (0.15-1.2) 01/28/23 01:15 AST 16 U/L (0-32) 01/28/23 01:15 ALT 16 U/L (0-33) 01/28/23 01:15 Alkaline Phosphatase 75 U/L (35-105) 01/28/23 01:15 C-Reactive Protein 16.5 mg/L (0.0-4.9) H 01/28/23 01:15 Total Protein 7.3 g/dL (6.6-8.7) 01/28/23 01:15 Albumin 4.4 g/dL (3.5-5.2) 01/28/23 01:15 Globulin 2.9 g/dL (1.3-4.6) 01/28/23 01:15 Urine Color Colorless (Yellow) 01/28/23 03:20 Urine Appearance Clear (CLEAR) 01/28/23 03:20 Urine pH 6.5 (5-7) 01/28/23 03:20 Ur Specific [place] 1.010 (1.005-1.030) 01/28/23 03:20 Urine Protein Neg (Negative) 01/28/23 03:20 Urine Glucose (UA) Norm (Normal) 01/28/23 03:20 Urine Ketones Negative (Negative) 01/28/23 03:20 Urine Blood Neg (Negative) 01/28/23 03:20 Urine Nitrate Positive (Negative) H 01/28/23 03:20 Urine Bilirubin Neg (Negative) 01/28/23 03:20 Urine Urobilinogen Neg mg/dL (Negative) 01/28/23 03:20 Ur Leukocyte Esterase Trace (Negative) H 01/28/23 03:20 Urine RBC Rare /hpf (0-2) 01/28/23 03:20 Urine WBC 10-15 /hpf (0-5) H 01/28/23 03:20 Ur Squamous Epith Cells Rare /hpf (0-5) 01/28/23 03:20 Amorphous Sediment Not Reportable 01/28/23 03:20 Urine Bacteria 2+ /hpf (NONE) H 01/28/23 03:20 Discharge Plan Discharge Patient Disposition: Home Clinical Impression: Urinary tract infection, Constipation, Back pain at L4-L5 level Condition: Stable Prescriptions: New hydrocodone-acetaminophen 5-325 mg tablet 1 tab PO Q8H PRN (Reason: pain) Qty: 7 0RF magnesium citrate Solution 296 ml PO DAILY PRN (Reason: constipation) Qty: 296 0RF cefdinir 300 mg capsule 300 mg PO BID Qty: 14 0RF No Action meloxicam 15 mg tablet 15 mg PO DAILY Qty: 30 5RF atorvastatin 40 mg Tablet 40 mg PO BEDTIME 30 Days Qty: 30 0RF carvedilol 6.25 mg Tablet 6.25 mg PO BID 30 Days Qty: 60 0RF levetiracetam 100 mg/mL Solution 500 mg PO BID 30 Days Qty: 300 0RF Rx Instructions: may substitute formulation if needed acetaminophen 325 mg Tablet 650 mg PO Q6H PRN (Reason: Mild/Mod Pain Or Temp >/= 101) 30 Days Qty: 30 0RF amlodipine 5 mg Tablet 5 mg PO BID 30 Days Qty: 60 0RF lactulose 20 gram/30 mL Solution 10 g PO DAILY PRN (Reason: Constipation (see protocol)) 30 Days Qty: 300 0RF cyanocobalamin (vitamin B-12) 1,000 mcg capsule 1,000 mcg PO DAILY Qty: 30 0RF Enulose 10 gram/15 mL solution 15 ml PO TID PRN (Reason: constipation) Qty: 473 0RF Discharge Orders: Discharge ED (Routine); Ordered 01/28/23 Ordered By: Dariel Mcgarry Referrals: Ravi Charlton DO [Primary Care Provider] - 1-3 days Patient Instructions: Constipation (ED), Acute Low Back Pain (ED), Urinary Tract Infection in Older Adults (ED), Opioid Safety, Pain Management Coding Level of Care Code ED [employer] Operator for Lawson Barron
[2023-01-28 03:31] VITALS: BP 151/69; PULSE 99; RESP 16; O2SAT 98
[2023-01-28 03:32] LABS: Bilirubin Urine Neg (Negative); Blood Urine Neg (Negative); Glucose Urine UA Norm (Normal); Ketones Urine Negative (Negative); Nitrate Urine Positive (Negative); Protein Urine Neg (Negative); Urine Appearance Clear (CLEAR); Urine Color Colorless (Yellow); Urobilinogen Urine Neg (Negative); pH Urine 6.5 (5-7)
[2023-01-28 03:33] LABS: Add Urine Microscopic? YES; Leukocyte Esterase Urine Trace (Negative)
[2023-01-28 03:35] LABS: Add Urine Culture? Yes; Bacteria Urine 2+ /hpf; RBC Urine RARE /hpf (0-2); Squamous Epithelial Cell Urine RARE /hpf (0-5)
--- NOTE | 2023-01-28 03:58 | PC.NURSE ---
RN into room to check on pt after hearing pt yell, help several times. Pt tells RN, I need some water and you did not bring it to me! RN reminded pt that pt could not have water until CT scan came back. RN also reminded pt that pt never asked for water. Pt removed IV catheter and monitoring lines prior to RN arrival. When RN asked about this action, pt stated, Well you did not help me so I just took them off myself because I don't like them! Site of previous IV is no longer bleeding. Dressing applied. RN reminded pt to stay in bed and not to pull at lines. Pt in direct sight of nurse's station for proper monitoring. MD aware. Continuing to monitor.
--- NOTE | 2023-01-28 04:32 | PC.NURSE ---
Discharge instructions and visit summary read to Christy HAMILTON (did not give last name) at [facility]. Christy HAMILTON verbalized understanding of instructions. Discharge paperwork signed by this RN and another witness to phone call due to pt being confused.
[2023-01-28 05:51] VITALS: BP 151/69; PULSE 99; RESP 16; TEMP 36.8; O2SAT 98
== END 2023-01-28 05:52 | disposition home or self-care (01) ==
PROVIDERS: Emergency Provider Emergency Medicine; PCP Family Medicine
DX: K59.00 Constipation, unspecified (principal); N39.0 Urinary tract infection, site not specified; M54.50 Low back pain, unspecified; I10 Essential (primary) hypertension; Z86.73 Personal history of transient ischemic attack (TIA), and cerebral infarction without residual deficits
CPT/HCPCS: 36415; 74177; 80053; 81001; 83605; 85025; 86140; 87077; 87086; 87186; 96361; 96374; 96375; 99285; J2270; J2405; J7030; Q9967

== ENCOUNTER 2023-02-04 12:58 | Emergency (ER) | payer MEDICARE, OTHER, SELFPAY ==
[2023-02-04 12:59] VITALS: BP 113/63; PULSE 80; TEMP 36.8; O2SAT 95; BMI 35.9
--- NOTE | 2023-02-04 13:13 | ED_ITS ---
HPI - Back Pain/Injury General: Chief Complaint: Back Pain/Injury Stated Complaint: SI WITH BACK PAIN Time Seen by Provider: 02/04/23 13:02 Source: patient Mode of arrival: EMS Limitations: no limitations History of Present Illness: Patient is an 87-year-old female presents to ED today with a complaint of chronic lower back pain. Patient states she has had back pain for over 2 years. She states earlier today at her halfway they refused to give her medications for her back pain thus that she made some type of suicidal comment. Upon arrival to the ED patient tells me that she is not suicidal and she only said that to get attention . She states normally her back pain is tolerable with her pain medications. She also states that milk seems to help her pain. Patient seemingly fairly aggravated upon arrival to the ED. She feels the repetitive questioning is overwhelming. She seems frustrated that she has chronic back pain. Patient was seen in the emergency department a few weeks ago for abdominal pain/constipation. She was treated for UTI. Micro grew Klebsiella sensitive to cephalosporins. She was placed on cefdinir at that visit and completed this course. She is not having any urinary symptoms at this time. No flank pain. She states her lower back pain currently feels like her chronic pain. MD elicited complaint: back pain Pertinent past history: prior back pain Onset (ago): year(s) Timing: constant Severity: severe Similar Symptoms Previously: Yes Location: lumbar spine Radiation: none Exacerbating factors: none Relieving factors: other (pain medication, milk) Associated symptoms: Deny abdominal pain, chills, dysuria, fatigue, fever(s), nausea, urinary urgency or vomiting Work related injury: No Review of Systems Const: Denies: fever(s), chills, body aches, fatigue or malaise Card: Denies: chest pain Resp: Denies: dyspnea GI: Denies: abdominal pain, nausea, vomiting or diarrhea : Denies: flank pain, difficulty voiding, dysuria, urinary frequency, urinary urgency or urinary hesitancy Musc: Reports: back pain; Denies: neck pain, extremity pain, extremity swelling or joint pain Skin/Breast: Denies: rash Neuro: Denies: headache(s), numbness in extremities, weakness in extremities or sensory changes PFS ED PFSH: Medical History Blepharitis Candidal intertrigo Establishing care with new doctor, encounter for Expressive aphasia HTN (hypertension) Lumbar back pain Lumbar spinal stenosis Metabolic encephalopathy Personality change Stroke Syncope and collapse TIA involving left internal carotid artery Verruca vulgaris Family History Other CAD (coronary artery disease) Cancer Social History Smoking and tobacco status: never smoked Alcohol intake: never Adopted: No Caregiver/support person: No Lives independently: No Household members: other Housing: Jail Physical Exam Const: COMMON NORMALS: no acute distress, patient oriented x3, no limitations, alert and well nourished GENERAL APPEARANCE: cooperative and other (agitated ) NUTRITIONAL APPEARANCE: overweight ORIENTATION/CONSCIOUSNESS: Yes awake, Yes oriented to person, Yes oriented to place and Yes oriented to time HENMT: COMMON NORMALS: normocephalic and atraumatic HEAD & SCALP: normal to inspection, normocephalic and atraumatic Eye: COMMON NORMALS: no scleral icterus Resp: COMMON NORMALS: normal respiratory effort and clear to auscultation bilaterally AUSCULTATION: clear to auscultation bilaterally Cardio: COMMON NORMALS: regular rate and regular rhythm RATE: regular rate RHYTHM: regular rhythm GI: COMMON NORMALS: Normal to inspection, nondistended, normoactive bowel sounds present, Soft to palpation, non-tender, No hepatosplenomegaly present and no masses PALPATION: Yes Soft to palpation and Yes No hepatosplenomegaly present Back/Pelvis: COMMON NORMALS: thoracic and lumbar spine normal to inspection THORACIC SPINE/UPPER BACK: Yes normal to inspection, No thoracic spinal tenderness, No paraspinal muscle tenderness and No paraspinal muscle spasm LUMBAR SPINE/LOWER BACK: Yes lumbar spinal tenderness, No paraspinal muscle tenderness and No paraspinal muscle spasm PELVIS: Yes buttocks normal and No sciatic notch tenderness SACROILIAC JOINTS: Yes SI joints normal SACRUM: no tenderness COCCYX: no tenderness Extremity: COMMON NORMALS: normal to inspection and full ROM GENERAL: Yes normal exam except as noted Neuro: COMMON NORMALS: patient oriented x3, moves all extremities, no focal motor deficits and no sensory deficits noted SENSORIUM/ORIENTATION: Yes alert, Yes oriented to person, Yes oriented to place and Yes oriented to time Skin: COMMON NORMALS: no rashes or lesions noted GENERAL SKIN EXAM: no rashes or lesions noted Course Vital Signs: Vital signs: Vital Signs Temperature 98.3 F 02/04/23 12:59 Pulse Rate 80 02/04/23 12:59 Blood Pressure 113/63 02/04/23 12:59 Pulse Oximetry 95 02/04/23 12:59 Oxygen Delivery Me thod Room Air 02/04/23 12:59 MDM - Back Pain/Injury Medical Decision Making Patient here for lower back pain that she states has been present over the past 2.5 years. No acute injury noted. No indication for emergent imaging today. She states her pain is normally helped with milk and her scheduled pain medications. We contacted the halfway who stated patient was given a hydrocodone yesterday evening as well as a tramadol this morning at roughly 5:30 AM. MAR from halfway states she has orders for Tramadol q 6 hrs prn and Hydrocodone q 8 hrs prn. Ultimately if she's already taking hydrocodone and tramadol there is not much more I can offer from an ER standpoint. Patient adamantly states she is not suicidal and she only said that to get attention and so somebody would pay attention to my back pain . Recommend halfway consult with provider to see if medications can be increased if they are not controlling her pain. No radiology studies performed this visit Discharge Plan Discharge Patient Disposition: Home Clinical Impression: Chronic back pain Qualifiers: Back pain location: low back pain Back pain laterality: midline Sciatica presence: without sciatica Qualified Code(s): M54.50 - Low back pain, unspecified Condition: Stable Prescriptions: No Action meloxicam 15 mg tablet 15 mg PO DAILY Qty: 30 5RF cyanocobalamin (vitamin B-12) 1,000 mcg capsule 1,000 mcg PO DAILY Qty: 30 0RF atorvastatin 40 mg Tablet 40 mg PO QPM acetaminophen 325 mg Tablet 650 mg PO Q4H PRN (Reason: Pain) carvedilol 6.25 mg Tablet 6.25 mg PO BID Rx Instructions: must administer with a meal/food tizanidine 4 mg Tablet 4 mg PO BID Keppra 500 mg Tablet 500 mg PO BID amlodipine 5 mg Tablet 5 mg PO BID Xanax 0.25 mg Tablet 0.25 mg PO Q6H PRN (Reason: Anxiety) Rx Instructions: no more than 3 doses in 24 hours Milk of Magnesia 400 mg/5 mL Suspension 30 ml PO DAILY PRN (Reason: Constipation) Dulcolax (bisacodyl) 10 mg Suppository 10 mg [place] DAILY PRN (Reason: Constipation) cyanocobalamin (vitamin B-12) 1,000 mcg/mL Solution 1,000 mcg IM Q30D nitrofurantoin macrocrystal 100 mg Capsule 100 mg PO BID Rx Instructions: must administer with a meal/food Fleet Enema 19-7 gram/118 mL Enema 118 ml [place] DAILY PRN (Reason: Constipation) Risperdal 0.5 mg Tablet 0.5 mg PO BEDTIME lactulose [Enulose] 10 gram/15 mL solution 15 ml PO TID PRN (Reason: constipation) Qty: 473 0RF hydrocodone-acetaminophen 5-325 mg tablet 1 tab PO Q8H PRN (Reason: pain) Qty: 7 0RF magnesium citrate Solution 296 ml PO DAILY PRN (Reason: constipation) Qty: 296 0RF Discharge Orders: Discharge ED (Routine); Ordered 02/04/23 Ordered By: Mary Varma Referrals: Ravi Charlton DO [Primary Care Provider] - Coding Level of Care Code ED In Home Aide for Lawson Barron
[2023-02-04] MEDS: morphine 4 mg/mL SDV 1 mL IM (14:24)
--- NOTE | 2023-02-04 15:39 | ECG_ITS ---
[facility] Test Date: 2023-02-04 Pat Name: Beckie Jean Department: Room: Gender: Female Quality Process Lead: : 1935 Requested By: Mary Varma Order Number: [id number] Brayan MD: Fay Gastelum M.D. Measurements Intervals [place] Rate: 88 P: 63 FL: 151 QRS: 4 QRSD: 85 T: 28 QT: 352 QTc: 427 Interpretive Statements SINUS RHYTHM MINIMAL VOLTAGE CRITERIA FOR LVH, CONSIDER NORMAL VARIANT [MEETS CRITERIA IN ONE OF: R(aVL), S(V1), R(V5), R(V5/V6)+S(V1)] PROBABLE INFERIOR MYOCARDIAL INFARCTION , PROBABLY OLD [35 ms Q WAVE IN II/aVF] INTERPRETATION BASED ON A DEFAULT AGE OF 40 YEARS Compared to ECG 12/29/2022 00:46:19 Myocardial infarct finding now present Ventricular premature complex(es) no longer present Electronically Signed On 02-04-2023 21:16:41 CDT by Fay Gastelum M.D. [id number]
== END 2023-02-04 15:55 | disposition home or self-care (01) ==
PROVIDERS: Emergency Provider Physician Assistant; PCP Family Medicine
DX: G89.29 Other chronic pain (principal); M54.50 Low back pain, unspecified; I10 Essential (primary) hypertension; Z86.73 Personal history of transient ischemic attack (TIA), and cerebral infarction without residual deficits
CPT/HCPCS: 93005; 96372; 99284; J2270

== ENCOUNTER 2023-09-28 12:53 | Emergency (ER) | payer MEDICARE, OTHER, MEDICAID, SELFPAY ==
[2023-09-28] VITALS (7 sets, daily range): BP systolic 130–146; BP diastolic 65–81; PULSE 79–88; RESP 16–18; TEMP 37.2; O2SAT 91–94; BMI 32.0
--- NOTE | 2023-09-28 13:07 | XRR_ITS ---
PROCEDURE INFORMATION: Exam: XR Chest Exam date and time: 09/28/2023 1:14 PM Age: 88 years old Clinical indication: Shortness of breath; Additional info: SOB TECHNIQUE: Imaging protocol: Radiologic exam of the chest. Views: 1 view. COMPARISON: CR XR chest 1V portable [id number] 08/17/2022 1:45 AM FINDINGS: Lungs: Unremarkable. No consolidation. Pleural spaces: Unremarkable. No pleural effusion. No pneumothorax. Heart/Mediastinum: Stable cardiomegaly. Bones/joints: Stable. XR/XR chest 1V portable [id number] IMPRESSION: No acute findings.
--- NOTE | 2023-09-28 13:08 | ECG_ITS ---
[facility] Test Date: 2023-09-28 Pat Name: Beckie Jean Department: Room: Gender: Female Superior Court Clerk: : 1935 Requested By: Noemy Diego Order Number: [id number] Brayan MD: Myesha Daniel M.D. Measurements Intervals [place] Rate: 79 P: 68 LA: 150 QRS: 30 QRSD: 86 T: 30 QT: 378 QTc: 435 Interpretive Statements SINUS RHYTHM POSSIBLE INFERIOR MYOCARDIAL INFARCTION , PROBABLY OLD [30 ms Q WAVE IN II/aVF] Compared to ECG 02/04/2023 14:54:08 No significant changes Electronically Signed On 09-28-2023 19:56:34 CDT by Myesha Daniel M.D. [id number]
--- NOTE | 2023-09-28 13:09 | W.ED.SOB ---
HPI - SOB/Dyspnea General: Chief Complaint: Shortness of Breath/Dyspnea Stated Complaint: SOB Time Seen by Provider: 09/28/23 13:02 History of Present Illness: HPI Narrative: Joseluis Jean is an 88-year-old female that presents to the emergency department with complaints of shortness of breath. She is a resident at a local group home and was recently treated for pneumonia. Reportedly, she started to feel better so started refusing treatment. She has a COPD history as well as heart failure, heart disease, hypertension, hyperlipidemia and vitamin B12 deficiency. This morning group home staff noted a oxygen saturation in the 80s. She is currently on 3 L and has an oxygen saturation of 91%. Associated symptoms: Deny abdominal pain, chest congestion, chest pain, dizziness, extremity pain, fever(s), nausea, orthopnea, palpitations, polydipsia, polyuria or vomiting Review of Systems General: Reports: 10 or more systems reviewed and unremarkable except in HPI and below Const: Reports: chills, change in appetite, fatigue and malaise; Denies: fever(s) or change in weight ENMT: Denies: throat pain, enlarged tonsils, odynophagia, hoarseness, ear or mastoid pain, ear discharge, change in hearing, tinnitus, nasal discharge, nasal congestion, post nasal drip or sinus pain Card: Denies: chest pain, palpitations, irregular heart rhythm, edema, dyspnea on exertion, orthopnea or leg pain with exertion Resp: Reports: dyspnea and wheezing; Denies: productive cough, non-productive cough, stridor or chest congestion GI: Denies: abdominal pain, nausea, vomiting, dysphagia, diarrhea, constipation, bloating, GI cramping or hematochezia : Denies: flank pain, difficulty voiding, dysuria, urinary frequency, urinary urgency, urinary hesitancy, oliguria or hematuria Musc: Denies: neck pain, back pain, extremity pain, joint pain, joint swelling, joint redness, joint warmth or muscle weakness Neuro: Denies: headache(s), numbness in extremities, weakness in extremities, sensory changes, lack of coordination, difficulty walking, frequent falls, dizziness, confusion, Slurred speech present, difficulty communicating thoughts, seizure-like activity or involuntary movements Endo: Denies: polyuria, polydipsia or tired all the time Haim/Lymph: Denies: easy bruising or easy bleeding [facility] ED PFSH: Medical History Blepharitis Candidal intertrigo Establishing care with new doctor, encounter for Expressive aphasia HTN (hypertension) Lumbar back pain Lumbar spinal stenosis Metabolic encephalopathy Personality change Psychiatric care Stroke Syncope and collapse TIA involving left internal carotid artery Verruca vulgaris Family History Other CAD (coronary artery disease) Cancer Social History Smoking and tobacco/nicotine status: never used tobacco/nicotine Alcohol intake: never Adopted: No Caregiver/support person: No Lives independently: No Household members: other Housing: [facility] Physical Exam Const: COMMON NORMALS: no acute distress and alert GENERAL APPEARANCE: cooperative ORIENTATION/CONSCIOUSNESS: Yes awake, Yes oriented to person and Yes oriented to place; not oriented to time HENMT: COMMON NORMALS: normocephalic and atraumatic HEAD & SCALP: normocephalic and atraumatic FACE & SINUS: normal facial exam MOUTH: Normal oral and palatal mucosa present THROAT: posterior oropharynx normal Eye: COMMON NORMALS: Equal, round and reactive pupils present, EOMs intact bilaterally, conjunctivae normal and no scleral icterus GENERAL EYE: appearance normal, both eyes and all related structures ALIGNMENT: Yes alignment normal PERIORBITAL: periorbital findings normal CONJUNCTIVA: Yes conjunctivae normal PUPIL: Yes Equal, round and reactive pupils present Neck/C-Spine: COMMON NORMALS: full ROM GENERAL: Yes normal visual inspection Lymph: LYMPHATIC: no lymphadenopathy noted Chest: COMMONS NORMALS: normal inspection of the chest Breast/axilla inspection: Yes no chest deformity, asymmetry, normal contours, no nodules, masses, tenderness Resp: COMMON NORMALS: normal respiratory effort, No retractions and No use of accessory muscles EFFORT & INSPECTION: Yes able to speak in complete sentences and Yes symmetric chest movement AUSCULTATION: rales bilateral in the upper lung yates and diminished lung sounds bilateral in the lower lung yates Cardio: COMMON NORMALS: regular rate, regular rhythm and Peripheral pulses 2+ throughout RATE: regular rate RHYTHM: regular rhythm PERIPHERAL PULSES: Peripheral pulses 2+ throughout GI: COMMON NORMALS: Normal to inspection, nondistended, normoactive bowel sounds present, Soft to palpation, non-tender and No hepatosplenomegaly present INSPECTION: Yes normal to inspection AUSCULTATION: Yes normoactive bowel sounds PALPATION: Yes Soft to palpation and Yes No hepatosplenomegaly present RECTAL EXAM: deferred Extremity: COMMON NORMALS: normal to inspection GENERAL: Yes normal exam except as noted Neuro: SENSORIUM/ORIENTATION: Yes alert, Yes oriented to person, Yes oriented to place and No oriented to time CRANIAL NERVES: Yes CN normal except as noted Psych: COMMON NORMALS: mental status grossly normal, Normal thought process present, cooperative, activity/motor behavior normal, denies homicidal ideation and denies suicidal ideation THOUGHT PROCESS: Normal thought process present Skin: COMMON NORMALS: no rashes or lesions noted, no wounds and turgor normal GENERAL SKIN EXAM: no rashes or lesions noted and turgor normal Course Vital Signs: Vital signs: Vital Signs Temperature 98.9 F 09/28/23 12:59 Pulse Rate 86 09/28/23 15:57 Respiratory Rate 16 09/28/23 15:57 Blood Pressure 146/78 09/28/23 15:57 Pulse Oximetry 92 09/28/23 15:57 Oxygen Delivery Me thod Nasal Cannula 09/28/23 15:57 Oxygen Flow Rate 3.5 09/28/23 15:57 MDM - SOB/Dyspnea Medical Decision Making Patient presents with complaints of shortness of breath. She has a history of COPD and recent pneumonia. She completed her antibiotic therapy but recently discontinued. Daily respiratory treatments. She arrived with an oxygen saturation in the mid to high 80s. On 3 L she oxygen saturation of 91 to 94% following a breathing treatment and steroids. Differential diagnosis includes cardiovascular event, pneumonia, COPD exacerbation, viral respiratory infection. She underwent laboratory evaluation that included COVID and influenza testing, CBC, CMP, BNP, troponin series, urinalysis. EKG was performed at 1333. It reveals a sinus rhythm with a ventricular rate of 79 beats a minute. WA interval and QTc are within normal limits. There is no ectopy, ST elevation or abnormal T wave inversion. This is unchanged from her baseline in January 2023. Repeat EKG completed at 1457 reveals a ventricular rate of 80 beats a minute but otherwise unchanged. Influenza and COVID testing were negative Her CBC revealed no leukocytosis, significant anemia, or shift. Her chemistry panel reveals no significant electrolyte abnormality, normal anion gap, normal creatinine, and no elevation in liver enzymes. Her BNP is normal and she has a troponin of 28. She appears to have a baseline about 10. I obtained a 2-hour delta which was -2.5 Her heart score was 5 points. I did review case with Dr. Garrett. Discharge patient home with treatment for COPD exacerbation. She is going to take Augmentin and a steroid pack. She needs to continue her nebulizer treatments that were started by the nursing facility. Follow-up with primary care next week Return to the emergency department as needed Lab Data 09/28/23 13:08 09/28/23 13:08 Labs/Radiology: Radiology Impressions Chest X-Ray 09/28/23 13:07 IMPRESSION: No acute findings. Laboratory Results WBC 4.98 10^3/uL (3.29-11.43) 09/28/23 13:08 RBC 3.89 10^6/uL (3.85-5.65) 09/28/23 13:08 Hgb 13.10 g/dL (11.27-16.99) 09/28/23 13:08 Hct 39.5 % (36-47) 09/28/23 13:08 MCV 101.5 fl (85-98) H 09/28/23 13:08 MCH 33.7 pg (27-33) H 09/28/23 13:08 MCHC 33.2 g/dL (30-55) 09/28/23 13:08 RDW 13.3 % (12.1-15.1) 09/28/23 13:08 Plt Count 171 10^3/cmm (157-399) 09/28/23 13:08 MPV 9.7 fL (7.4-10.4) 09/28/23 13:08 Neut % (Auto) 39.4 % 09/28/23 13:08 Lymph % (Auto) 31.5 % 09/28/23 13:08 [place] % (Auto) 27.1 % 09/28/23 13:08 Eos % (Auto) 1.0 % 09/28/23 13:08 Baso % (Auto) 0.6 % 09/28/23 13:08 Neut # (Auto) 1.96 10^3/uL (1.8-7.7) 09/28/23 13:08 Lymph # (Auto) 1.6 10^3/uL (0.8-4.8) 09/28/23 13:08 [place] # (Auto) 1.4 10^3/uL (0.2-0.9) H 09/28/23 13:08 Eos # (Auto) 0.1 10^3/uL (0.0-0.8) 09/28/23 13:08 Baso # (Auto) 0.0 10^3/uL (0.0-0.1) 09/28/23 13:08 Nucleated RBC % (auto) 0 % 09/28/23 13:08 Nucleated RBCs # 0.0 /100WBC 09/28/23 13:08 Specimen Type Arterial 09/28/23 13:20 Sample Site Radial, left 09/28/23 13:20 ABG pH 7.43 (7.35-7.45) 09/28/23 13:20 ABG pCO2 46.3 mmHg (35-45) H 09/28/23 13:20 ABG pO2 84.3 mmHg (80.0-100.0) 09/28/23 13:20 ABG PO2/FiO2 Ratio 0 09/28/23 13:20 ABG HCO3 30.8 mmol/L (22-26) H 09/28/23 13:20 ABG O2 Saturation 95.2 09/28/23 13:20 ABG Base Excess 5.6 mmol/L (-2.0-2.0) H 09/28/23 13:20 Jesse Test Pos 09/28/23 13:20 A-a O2 Gradient 14.9 mmHg (5-10) H 09/28/23 13:20 Hematocrit 41.2 % (37-47) 09/28/23 13:20 Hgb O2 Saturation 94.8 % (95-100) L 09/28/23 13:20 Carboxyhemoglobin 0.1 %THgb (0.4-20.1) L 09/28/23 13:20 Methemoglobin 0.2 % (0.4-1.5) L 09/28/23 13:20 Total Hemoglobin 13.4 g/dL (12-16) 09/28/23 13:20 Sodium 140.0 mmol/L (131-143) 09/28/23 13:20 Potassium 3.9 mmol/L (3.5-5.0) 09/28/23 13:20 Glucose 92.0 mg/dL (70-115) 09/28/23 13:20 Ionized Calcium 1.2 mmol/L (1.1-1.4) 09/28/23 13:20 O2 Delivery Device Nc 09/28/23 13:20 O2 Liters/Min 4.0 % 09/28/23 13:20 FiO2 36.0 % 09/28/23 13:20 Digital Circuit Designer ID Cak 09/28/23 13:20 Sodium 137 mmol/L (136-145) 09/28/23 13:08 Potassium 4.2 mmol/L (3.5-5.1) 09/28/23 13:08 Chloride 97 mmol/L (98-107) L 09/28/23 13:08 Carbon Dioxide 29 mmol/L (22-29) 09/28/23 13:08 Anion Gap 15.2 (5-19) 09/28/23 13:08 BUN 17 mg/dL (8-23) 09/28/23 13:08 Creatinine 0.8 mg/dL (0.5-0.9) 09/28/23 13:08 GFR Calculation Not Reportable 09/28/23 13:08 Glucose 96 mg/dL (65-115) 09/28/23 13:08 Calculated Osmolality 285 mOsm/kg (285-295) 09/28/23 13:08 Calcium 8.6 mg/dL (8.5-10.5) 09/28/23 13:08 Total Bilirubin 0.3 mg/dL (0.15-1.2) 09/28/23 13:08 AST 23 U/L (0-32) 09/28/23 13:08 ALT 18 U/L (0-33) 09/28/23 13:08 Alkaline Phosphatase 67 U/L (35-105) 09/28/23 13:08 Troponin T Baseline 28 ng/L (0-10) H 09/28/23 13:08 Troponin T 120 Minute 25.44 ng/L (0-10) H 09/28/23 15:00 Delta Troponin T -2.56 ABS# (0-10) L 09/28/23 15:00 NT-Pro-B Natriuret Pep 278 pg/mL (0-450) 09/28/23 13:08 Total Protein 6.2 g/dL (6.6-8.7) L 09/28/23 13:08 Albumin 3.5 g/dL (3.5-5.2) 09/28/23 13:08 Globulin 2.7 g/dL (1.3-4.6) 09/28/23 13:08 Urine Color Straw (Yellow) 09/28/23 15:09 Urine Appearance Clear (CLEAR) 09/28/23 15:09 Urine pH 6 (5-7) 09/28/23 15:09 Ur Specific [place] 1.015 (1.005-1.030) 09/28/23 15:09 Urine Protein Neg (Negative) 09/28/23 15:09 Urine Glucose (UA) Norm (Normal) 09/28/23 15:09 Urine Ketones Negative (Negative) 09/28/23 15:09 Urine Blood 2+ (Negative) H 09/28/23 15:09 Urine Nitrate Negative (Negative) 09/28/23 15:09 Urine Bilirubin Neg (Negative) 09/28/23 15:09 Urine Urobilinogen Norm mg/dL (Negative) 09/28/23 15:09 Ur Leukocyte Esterase Trace (Negative) H 09/28/23 15:09 Urine RBC Rare /hpf (0-2) 09/28/23 15:09 Urine WBC 0-4 /hpf (0-5) H 09/28/23 15:09 Ur Squamous Epith Cells 5-10 /hpf (0-5) H 09/28/23 15:09 Amorphous Sediment Not Reportable 09/28/23 15:09 Urine Bacteria 3+ /hpf (NONE) H 09/28/23 15:09 Influenza Type A Ag negative (Negative) 09/28/23 13:29 Influenza Type B Ag negative (Negative) 09/28/23 13:29 SARS-CoV-2 Ag (Rapid) negative (Negative) 09/28/23 13:29 All radiology interpretation(s) finalized by discharge Discharge Plan Discharge Patient Disposition: Home Clinical Impression: Acute exacerbation of chronic obstructive pulmonary disease Condition: Stable Prescriptions: New amoxicillin-pot clavulanate 875-125 mg tablet 1 tab PO BID 5 Days Qty: 10 0RF prednisone 10 mg tablet 20 mg PO DAILY 3 Days Qty: 6 0RF No Action tramadol 50 mg tablet 50 mg PO Q6H PRN (Reason: Pain) polyethylene glycol 3350 [Miralax] 17 gram/dose powder 4 g PO DAILY potassium chloride 20 mEq tablet extended release 20 meq PO QAM tizanidine 2 mg capsule 2 mg PO BID PRN (Reason: muscle spasticity) Qty: 90 0RF cyanocobalamin (vitamin B-12) 1,000 mcg capsule 1,000 mcg PO DAILY Qty: 30 0RF atorvastatin 40 mg Tablet 40 mg PO QPM acetaminophen 325 mg Tablet 650 mg PO Q4H PRN (Reason: Pain) carvedilol 6.25 mg Tablet 6.25 mg PO BID Rx Instructions: must administer with a meal/food levetiracetam [Keppra] 500 mg Tablet 500 mg PO BID amlodipine 5 mg Tablet 5 mg PO BID magnesium hydroxide [Milk of Magnesia] 400 mg/5 mL Suspension 30 ml PO DAILY PRN (Reason: Constipation) bisacodyl [Dulcolax (bisacodyl)] 10 mg Suppository 10 mg [place] DAILY PRN (Reason: Constipation) cyanocobalamin (vitamin B-12) 1,000 mcg/mL Solution 1,000 mcg IM Q30D Fleet Enema 19-7 gram/118 mL Enema 118 ml [place] DAILY PRN (Reason: Constipation) lactulose [Enulose] 10 gram/15 mL solution 15 ml PO TID PRN (Reason: constipation) Qty: 473 0RF hydrocodone-acetaminophen 5-325 mg tablet 1 tab PO Q8H PRN (Reason: pain) Qty: 7 0RF bumetanide 2 mg tablet 2 mg PO BID ondansetron HCl 4 mg tablet 4 mg PO Q4H PRN (Reason: Nausea And Vomiting) alprazolam 0.25 mg tablet 0.25 mg PO Q6H PRN (Reason: Anxiety) Discharge Orders: Discharge ED (Routine); Ordered 09/28/23 Ordered By: Noemy Kellogg Referrals: Ravi Charlton DO [Physician] - Discharge Diet: Advance as tolerated Discharge Activity: Resume usual activity Patient Instructions: COPD (Chronic Obstructive Pulmonary Disease) (ED), Pain Management Activity Restrictions/Additional Instructions: Please take antibiotics as prescribed Please take steroids as directed Take your nebulizer treatments at home Follow-up with primary care this coming week will be reevaluated by nursing facility provider Return to the emergency department as needed for new, concerning, worsening Coding Level of Care Code ED Correctional Counselor for Lawson Barron
[2023-09-28] MEDS: methylPREDNISolone sod succ 125 mg/2 mL INJ IV (13:16)
[2023-09-28] MEDS: ipratropium-albuterol 3 mL Neb INHALATION (13:20)
[2023-09-28 13:23] LABS: Basophils % 0.6 %; Eosinophils # 0.1 10^3/uL (0.0-0.8); Hematocrit 39.5 % (36-47); Lymphocytes # 1.6 10^3/uL (0.8-4.8); Lymphocytes % 31.5 %; Mean Corpuscular HGB Conc 33.2 g/dL (30-55); Mean Corpuscular Hemoglobin 33.7 pg (27-33); Mean Corpuscular Volume 101.5 fl (85-98); Mean Platelet Volume 9.7 fL (7.4-10.4); Monocytes # 1.4 10^3/uL (0.2-0.9); Monocytes % 27.1 %; Neutrophils # 1.96 10^3/uL (1.8-7.7); Neutrophils % 39.4 %; Nucleated Red Blood Cells % 0 %; Platelet Count 171 10^3/cmm (157-399); Red Blood Count 3.89 10^6/uL (3.85-5.65); Red Cell Distribution Width 13.3 % (12.1-15.1); White Blood Count 4.98 10^3/uL (3.29-11.43)
[2023-09-28 13:32] LABS: ABG PCO2 46.3 mmHg (35-45); ABG PH Result 7.43 (7.35-7.45); Alveolar-Arterial Oxygen Gradi 14.9 mmHg (5-10); Arterial Blood Gas Hematocrit 41.2 % (37-47); Base Excess ABG 5.6 mmol/L (-2.0-2.0); Blood Gas Allen Test Pos; Blood Gas Operator Identificat CAK; Blood Gas Sample Site Radial, left; Blood Gas Sample Type Arterial; Carboxyhemoglobin 0.1 %THgb (0.4-20.1); HCO3 ABG 30.8 mmol/L (22-26); HGB O2 Sat 94.8 % (95-100); Ionized Calcium Level - ABG 1.2 mmol/L (1.1-1.4); Methemoglobin 0.2 % (0.4-1.5); Oxygen Device NC; Oxygen Saturation ABG 95.2; PO2 ABG 84.3 mmHg (80.0-100.0); PO2 FiO2 Ratio Arterial Blood 0; Potassium Level - ABG 3.9 mmol/L (3.5-5.0); Total Hemoglobin 13.4 g/dL (12-16)
[2023-09-28 13:42] LABS: Troponin(5th) Baseline 28 ng/L (0-10)
[2023-09-28 13:49] LABS: Alanine Aminotransferase 18 U/L (0-33); Albumin Level 3.5 g/dL (3.5-5.2); Alkaline Phosphatase 67 U/L (35-105); Anion Gap 15.2 (5-19); Aspartate Amino Transferase 23 U/L (0-32); Blood Urea Nitrogen 17 mg/dL (8-23); Calcium 8.6 mg/dL (8.5-10.5); Carbon Dioxide 29 mmol/L (22-29); Chloride 97 mmol/L (98-107); Creatinine Clr Calc Pharmacy 47.4318; Globulin 2.7 g/dL (1.3-4.6); Glucose 96 mg/dL (65-115); NT Pro B Type Natriuretic Pept 278 pg/mL (0-450); Osmolality Calculated 285 mOsm/kg (285-295); Potassium 4.2 mmol/L (3.5-5.1); Sodium 137 mmol/L (136-145); Total Bilirubin 0.3 mg/dL (0.15-1.2); Total Protein 6.2 g/dL (6.6-8.7)
[2023-09-28 13:52] LABS: Influenza A by IFA negative (Negative); Influenza B by IFA negative (Negative)
[2023-09-28 14:09] LABS: SARS Covid-2 Antigen negative (Negative)
--- NOTE | 2023-09-28 14:57 | ECG_ITS ---
[facility] Test Date: 2023-09-28 Pat Name: Beckie Jean Department: Room: Gender: Female Caseworker Protective Services: : 1935 Requested By: Noemy Diego Order Number: [id number] Brayan MD: Myesha Daniel M.D. Measurements Intervals [place] Rate: 80 P: 66 OK: 148 QRS: 24 QRSD: 86 T: 30 QT: 375 QTc: 433 Interpretive Statements SINUS RHYTHM PROBABLE INFERIOR MYOCARDIAL INFARCTION , PROBABLY OLD [35 ms Q WAVE IN II/aVF] Compared to ECG 09/28/2023 13:33:08 No significant changes Electronically Signed On 09-28-2023 20:21:19 CDT by Myesha Daniel M.D. [email or web address] county [email or web address] health [facility].[email or web address]/store/[id number]
[2023-09-28 15:31] LABS: Troponin 5 2HR 25.44 ng/L (0-10)
[2023-09-28] MEDS: amoxicillin-clav 875-125 mg Tablet 1 TAB PO (15:40)
[2023-09-28 16:07] LABS: Troponin 5 2HR Delta -2.56 ABS# (0-10)
[2023-09-28 16:27] LABS: Urine Appearance Clear (CLEAR); Urine Color Straw (Yellow); pH Urine 6 (5-7)
[2023-09-28 16:28] LABS: Add Urine Culture? Yes; Add Urine Microscopic? YES; Bacteria Urine 3+ /hpf; Bilirubin Urine Neg (Negative); Blood Urine 2+ (Negative); Glucose Urine UA Norm (Normal); Ketones Urine Negative (Negative); Leukocyte Esterase Urine Trace (Negative); Nitrate Urine Negative (Negative); Protein Urine Neg (Negative); RBC Urine RARE /hpf (0-2); Specific Gravity, Urine 1.015 (1.005-1.030); Urobilinogen Urine Norm (Negative); WBC Urine 0-4 /hpf (0-5)
--- NOTE | 2023-09-28 18:27 | PC.NURSE ---
discharge delayed due to needing a ride back to [facility].
== END 2023-09-28 19:46 | disposition home or self-care (01) ==
PROVIDERS: Emergency Provider Nurse Practitioner; PCP Family Medicine
DX: J44.1 Chronic obstructive pulmonary disease with (acute) exacerbation (principal); Z11.52 Encounter for screening for COVID-19; I10 Essential (primary) hypertension; Z86.73 Personal history of transient ischemic attack (TIA), and cerebral infarction without residual deficits
CPT/HCPCS: 36600; 71045; 80051; 80053; 81001; 82330; 82805; 83880; 84484; 85025; 87077; 87086; 87186; 87426; 87804; 93005; 94640; 96374; 99285; J2919

== ENCOUNTER 2024-02-03 14:52 | Inpatient (IN) | payer MEDICARE, OTHER, MEDICAID, SELFPAY ==
[2024-02-03] VITALS (10 sets, daily range): BP systolic 103–148; BP diastolic 56–109; PULSE 78–92; RESP 15–17; TEMP 36.5–36.6; O2SAT 90–97
--- NOTE | 2024-02-03 15:07 | XRR_ITS ---
PROCEDURE INFORMATION: Exam: XR Right Hip Exam date and time: 02/03/2024 3:15 PM Age: 88 years old Clinical indication: Injury or trauma; Fall; Blunt trauma (contusions or hematomas); Right; Hip; Additional info: Hip pain TECHNIQUE: Imaging protocol: Radiologic exam of the right hip. Views: 1 view hip with pelvis when performed. COMPARISON: CT abdomen pelvis w con* [id number] 01/28/2023 2:27 AM FINDINGS: Bones/joints: Acute displaced femoral neck fracture on the right. Detailed evaluation is limited by overlapping soft tissues. Soft tissues: No gross soft tissue abnormality. XR/XR hip RT 2-3V wo/w pel* [id number] IMPRESSION: 1. Acute displaced femoral neck fracture on the right.
--- NOTE | 2024-02-03 16:15 | XRR_ITS ---
PROCEDURE INFORMATION: Exam: XR Chest Exam date and time: 02/03/2024 4:41 PM Age: 88 years old Clinical indication: Injury or trauma; Fall; Blunt trauma (contusions or hematomas); Additional info: Presurgical TECHNIQUE: Imaging protocol: Radiologic exam of the chest. Views: 1 view. COMPARISON: CR (CHEST, ) 09/28/2023 1:14 PM FINDINGS: Lungs: No focal consolidation. Pleural spaces: No evidence of pneumothorax. No evidence of pleural effusion. Heart/Mediastinum: Cardiomediastinal silhouette is within normal limits. Bones/joints: No evidence of acute osseous abnormality. XR/XR chest 1V portable [id number] IMPRESSION: 1. No acute cardiopulmonary abnormality. If there is ongoing clinical suspicion for traumatic injury, consider correlation with CT.
--- NOTE | 2024-02-03 16:17 | W.ED.EXTPRO ---
HPI - Extremity Problem General: Chief complaint: Extremity Problem,Nontraumatic Stated complaint: back/left hip pain. Time Seen by Provider: 02/03/24 15:06 History of Present Illness: 88-year-old female with history of stroke and aphasia, hypertension who presents to the emergency room with a report of right hip fracture from the [facility] by ambulance. Unclear when she had a fall. Apparently she has falls and forgets. She has some dementia. Apparently also she has become nonambulatory recently. She decided to stop walking because she kept having falls. She developed worsening pain in her right hip and x-rays were done at the snf and a fracture was suspected. Related Data Home Medications Medication Instructions Recorded Confirmed acetaminophen 325 mg tablet 650 mg PO Q4H PRN Pain 02/04/23 09/28/23 amlodipine 5 mg tablet 5 mg PO BID 02/04/23 09/28/23 atorvastatin 40 mg tablet 40 mg PO QPM 02/04/23 09/28/23 bisacodyl 10 mg rectal suppository 10 mg [place] DAILY PRN Constipation 02/04/23 09/28/23 (Dulcolax (bisacodyl)) carvedilol 6.25 mg tablet 6.25 mg PO BID 02/04/23 09/28/23 cyanocobalamin (vitamin B-12) 1,000 mcg IM Q30D 02/04/23 09/28/23 1,000 mcg/mL injection solution levetiracetam 500 mg tablet 500 mg PO BID 02/04/23 09/28/23 (Keppra) magnesium hydroxide 400 mg/5 mL 30 ml PO DAILY PRN Constipation 02/04/23 09/28/23 oral suspension (Milk of Magnesia) sodium phosphates 19 gram-7 118 ml [place] DAILY PRN Constipation 02/04/23 09/28/23 gram/118 mL enema (Fleet Enema) polyethylene glycol 3350 17 4 g PO DAILY 03/25/23 09/28/23 gram/dose oral powder (Miralax) potassium chloride 20 mEq 20 meq PO QAM 03/25/23 09/28/23 tablet,extended release tramadol 50 mg tablet 50 mg PO Q6H PRN Pain 03/25/23 09/28/23 alprazolam 0.25 mg tablet 0.25 mg PO Q6H PRN Anxiety 09/28/23 09/28/23 bumetanide 2 mg tablet 2 mg PO BID 09/28/23 09/28/23 ondansetron HCl 4 mg tablet 4 mg PO Q4H PRN Nausea And Vomiting 09/28/23 09/28/23 Previous Rx's Medication Instructions Recorded cyanocobalamin (vitamin B-12) 1,000 mcg PO DAILY #30 caps 01/01/23 1,000 mcg capsule lactulose 10 gram/15 mL oral 15 ml PO TID PRN constipation #473 01/23/23 solution (Enulose) mL hydrocodone 5 mg-acetaminophen 325 1 tab PO Q8H PRN pain #7 tabs 01/28/23 mg tablet tizanidine 2 mg capsule 2 mg PO BID PRN muscle spasticity 04/26/23 #90 caps Allergies Allergy/AdvReac Type Severity Reaction Status Date / Time aspirin Allergy ADR-Abdominal Verified 02/03/24 15:08 Pain Review of Systems Narrative: Constitutional symptoms: Negative except as documented in HPI. Skin symptoms: Negative except as documented in HPI. Eye symptoms: Negative except as documented in HPI. ENMT symptoms: Negative except as documented in HPI. Respiratory symptoms: Negative except as documented in HPI. Cardiovascular symptoms: Negative except as documented in HPI. Gastrointestinal symptoms: Negative except as documented in HPI. Genitourinary symptoms: Negative except as documented in HPI. Musculoskeletal symptoms: Negative except as documented in HPI. Neurologic symptoms: Negative except as documented in HPI. Psychiatric symptoms: Negative except as documented in HPI. Endocrine symptoms: Negative except as documented in HPI. [facility] ED PFSH: Medical History Blepharitis Candidal intertrigo Establishing care with new doctor, encounter for Expressive aphasia HTN (hypertension) Lumbar back pain Lumbar spinal stenosis Metabolic encephalopathy Personality change Psychiatric care Stroke Syncope and collapse TIA involving left internal carotid artery Verruca vulgaris Family History Other CAD (coronary artery disease) Cancer Social History Smoking and tobacco/nicotine status: never used tobacco/nicotine Alcohol intake: never Adopted: No Caregiver/support person: No Lives independently: No Household members: other Housing: Longterm Physical Exam Narrative: EXAM NARRATIVE: General: Alert, no acute distress. Skin: Warm, dry. Head: Normocephalic, atraumatic. Neck: Supple, trachea midline. Eye: Extraocular movements are intact. Ears, nose, mouth and throat: mucosa moist. Cardiovascular: Regular, Normal peripheral perfusion. Respiratory: Lungs are clear to auscultation, respirations are non-labored, breath sounds are equal, Symmetrical chest wall expansion. Gastrointestinal: Soft, Nontender, Non distended Musculoskeletal: Patient has pain with any movement of her right leg and her right hip. Neurological: Alert and oriented, No focal neurological deficit observed. Psychiatric: Cooperative, appropriate mood & affect. Course Vital Signs: Vital signs: Vital Signs Temperature 97.9 F 02/03/24 14:56 Pulse Rate 88 02/03/24 15:52 Respiratory Rate 15 02/03/24 16:28 Blood Pressure 134/109 02/03/24 15:52 Pulse Oximetry 93 02/03/24 16:28 Oxygen Delivery Me thod Room Air 02/03/24 15:52 MDM - Extremity (Nontraumatic) Medical Decision Making X-ray of the right hip and pelvis shows a acute displaced femoral neck fracture. This was reviewed and interpreted by myself the emergency room physician. I also reviewed the radiology report. Chest x-ray: No acute process. No infiltrate. No pneumothorax. This was reviewed and interpreted by myself the ER physician. Consultation: I spoke with Dr. Murphy who is on-call for orthopedics who recommends admission. He says he will do surgery on Saturday. Consultation: I spoke with hospitalist on-call Dr. Mcfadden who is admitting the patient. Presurgical x-rays EKG and lab work has been ordered. EKG: Time 1623. Rate 90. Normal sinus rhythm, No ST-T changes, no ectopy, normal MO & QRS intervals, This was reviewed and interpreted by myself the ER physician at 1625. Assessment and plan: Right femoral neck fracture -I discussed the patient with the hospitalist on-call who is admitting the patient. - Discussed findings and plan with patient. Answered any questions. - All laboratory values were reviewed and interpreted personally by myself, the ER physician - All imaging was reviewed and interpreted personally by myself, the ER physician. - Evaluation and treatment of this problem were appropriate in the emergency setting Lab Data 02/03/24 16:35 02/03/24 16:35 Radiology Impressions Hip/Pelvis X-Ray 02/03/24 15:07 IMPRESSION: 1. Acute displaced femoral neck fracture on the right. All radiology interpretation(s) finalized by discharge Discharge Plan Discharge Patient Disposition: Admitted As Inpatient Clinical Impression: Closed fracture of neck of right femur Condition: Stable Coding Level of Care Code ED Care Team Coordinator Scheduler for Lawson Barron
--- NOTE | 2024-02-03 16:23 | ECG_ITS ---
[facility] Test Date: 2024-02-03 Pat Name: Beckie Jean Department: Room: Gender: Female Nail Specialist: : 1935 Requested By: Poppy Szymanski Order Number: [id number] Brayan MD: Lambert Fregoso M.D. Measurements Intervals [place] Rate: 90 P: 52 AR: 157 QRS: 9 QRSD: 82 T: 17 QT: 363 QTc: 445 Interpretive Statements SINUS RHYTHM POSSIBLE INFERIOR MYOCARDIAL INFARCTION , PROBABLY OLD [30 ms Q WAVE IN II/aVF] Compared to ECG 09/28/2023 14:57:37 No significant changes Electronically Signed On 02-04-2024 7:57:43 CDT by Lambert Fregoso M.D. [email or web address] general [email or web address] [id number]
[2024-02-03] MEDS: morphine 4 mg/mL SDV 1 mL IVP (16:28)
[2024-02-03] MEDS: ondansetron 2 mg/ML SDV 2 mL 4 MG IVP (16:30)
[2024-02-03 16:51] LABS: Basophils % 0.3 %; Eosinophils # 0.1 10^3/uL (0.0-0.8); Hematocrit 39.7 % (36-47); Lymphocytes # 2.8 10^3/uL (0.8-4.8); Mean Corpuscular HGB Conc 33.5 g/dL (30-55); Mean Corpuscular Hemoglobin 34.4 pg (27-33); Mean Corpuscular Volume 102.6 fl (85-98); Mean Platelet Volume 9.4 fL (7.4-10.4); Monocytes # 1.7 10^3/uL (0.2-0.9); Monocytes % 14.4 %; Neutrophils # 7.28 10^3/uL (1.8-7.7); Neutrophils % 60.6 %; Nucleated Red Blood Cells % 0 %; Platelet Count 267 10^3/cmm (157-399); Red Blood Count 3.87 10^6/uL (3.85-5.65); Red Cell Distribution Width 12.6 % (12.1-15.1); White Blood Count 12.02 10^3/uL (3.29-11.43)
--- NOTE | 2024-02-03 17:15 | CTR_ITS ---
PROCEDURE INFORMATION: Exam: CT Right Lower Extremity, Hip Exam date and time: 02/03/2024 5:56 PM Age: 88 years old Clinical indication: Injury or trauma; Fall; Other: Pain; Additional info: Fracture TECHNIQUE: Imaging protocol: CT of the right lower extremity without contrast was performed. Exam focused on the hip. Radiation optimization: All CT scans at this facility use at least one of these dose optimization techniques: automated exposure control; mA and/or kV adjustment per patient size (includes targeted exams where dose is matched to clinical indication); or iterative reconstruction. COMPARISON: CR XR hip RT 2-3V wo/w pel* [id number] 02/03/2024 3:15 PM RADIATION DOSE METRICS: Total DLP (mGy-cm): 386 FINDINGS: Bones/joints: Comminuted displaced fracture of the right femoral head/neck, possibly subacute. There appears to be atrophic changes of the femoral head, possibly reflecting atrophic nonunion or sequela of prior resection. Associated small joint effusion and intra-articular bodies. Soft tissues: Pericapsular soft tissue edema. No discrete fluid collection or hematoma. Gluteal muscular fatty atrophy is noted. The bladder is decompressed by a Greene catheter in expected position. CT/CT hip RT wo con* [id number] IMPRESSION: 1. Comminuted displaced fracture of the right femoral head/neck, possibly subacute. Correlation with history of trauma and orthopedic evaluation is recommended. 2. Apparent atrophic changes of the femoral head, possibly reflecting atrophic nonunion or sequela of prior resection.
--- NOTE | 2024-02-03 17:17 | P.HP_ITS ---
Providers/Chief Complaint 2 Admitting Physician: Rufino Mcfadden MD Primary Care Provider: Rhonda Mcfadden MD Chief Complaint: back/left hip pain. History of Present Illness Beckie Jean is a 88 year old female resident of nursing facility with chronic pain, seizure disorder, history of TIA, COPD, CHF, anxiety, dementia who presents to the hospital with increased pain in her pelvis. X-rays were done which demonstrated a right hip fracture. No fall was noted. She is not an ambulator, and typically is moved by Stuart lift. No recent trauma. She reports she hurts all over in the low back and hip. She reports the low back pain is chronic. Review of Systems 2 General: Reports: 10 or more systems reviewed and unremarkable except in HPI and below Card: Denies: chest pain Resp: Denies: dyspnea Medications/Allergies Home Medications Medication Instructions Recorded Confirmed Last Taken Type cyanocobalamin (vitamin B-12) 1,000 mcg PO DAILY #30 caps 01/01/23 09/28/23 Unknown Rx 1,000 mcg capsule lactulose 10 gram/15 mL oral 15 ml PO TID PRN constipation #473 01/23/23 09/28/23 Unknown Rx solution (Enulose) mL hydrocodone 5 mg-acetaminophen 325 1 tab PO Q8H PRN pain #7 tabs 01/28/23 09/28/23 Unknown Rx mg tablet acetaminophen 325 mg tablet 650 mg PO Q4H PRN Pain 02/04/23 09/28/23 Unknown History amlodipine 5 mg tablet 5 mg PO BID 02/04/23 09/28/23 Unknown History atorvastatin 40 mg tablet 40 mg PO QPM 02/04/23 09/28/23 Unknown History bisacodyl 10 mg rectal suppository 10 mg [place] DAILY PRN Constipation 02/04/23 09/28/23 Unknown History (Dulcolax (bisacodyl)) carvedilol 6.25 mg tablet 6.25 mg PO BID 02/04/23 09/28/23 Unknown History cyanocobalamin (vitamin B-12) 1,000 mcg IM Q30D 02/04/23 09/28/23 Unknown History 1,000 mcg/mL injection solution levetiracetam 500 mg tablet 500 mg PO BID 02/04/23 09/28/23 Unknown History (Keppra) magnesium hydroxide 400 mg/5 mL 30 ml PO DAILY PRN Constipation 02/04/23 09/28/23 Unknown History oral suspension (Milk of Magnesia) sodium phosphates 19 gram-7 118 ml [place] DAILY PRN Constipation 02/04/23 09/28/23 Unknown History gram/118 mL enema (Fleet Enema) polyethylene glycol 3350 17 4 g PO DAILY 03/25/23 09/28/23 Unknown History gram/dose oral powder (Miralax) potassium chloride 20 mEq 20 meq PO QAM 03/25/23 09/28/23 Unknown History tablet,extended release tramadol 50 mg tablet 50 mg PO Q6H PRN Pain 03/25/23 09/28/23 Unknown History tizanidine 2 mg capsule 2 mg PO BID PRN muscle spasticity 04/26/23 09/28/23 Unknown Rx #90 caps alprazolam 0.25 mg tablet 0.25 mg PO Q6H PRN Anxiety 09/28/23 09/28/23 Unknown History bumetanide 2 mg tablet 2 mg PO BID 09/28/23 09/28/23 Unknown History ondansetron HCl 4 mg tablet 4 mg PO Q4H PRN Nausea And Vomiting 09/28/23 09/28/23 Unknown History Allergies Allergy/AdvReac Type Severity Reaction Status Date / Time aspirin Allergy ADR-Abdominal Verified 02/03/24 15:08 Pain PFSH Acute 2 PFSH: Medical History (Updated 02/03/24 @ 17:47 by Rufino Mcfadden MD) HTN (hypertension) Psychiatric care Metabolic encephalopathy Personality change Expressive aphasia Stroke TIA involving left internal carotid artery Syncope and collapse Candidal intertrigo Lumbar back pain Lumbar spinal stenosis Verruca vulgaris Blepharitis Establishing care with new doctor, encounter for Family History Other CAD (coronary artery disease) Cancer Social History Smoking and tobacco/nicotine status: never used tobacco/nicotine Alcohol intake: never Adopted: No Caregiver/support person: No Lives independently: No Household members: other Housing: [facility] Vitals/I&O/Wt Last Vital Signs Temp 97.9 F 02/03/24 14:56 Pulse 88 02/03/24 15:52 Resp 15 09/16/24 16:28 BP 134/109 02/03/24 15:52 Pulse Ox 93 02/03/24 16:28 O2 Del Method Room Air 02/03/24 15:52 Physical Exam 2 Narrative: General exam is a white female, complaining of pain Neck is supple Cardiovascular regular rate and rhythm with a 2/6 systolic murmur Lungs clear Abdomen is soft obese nontender. No obvious organomegaly exam is deferred Extremities show trace edema bilaterally. Right lower extremity is externally rotated and shortened Skin no rash Data 02/03/24 16:35 02/03/24 16:35 Other Labs: INR is normal LFTs are normal Albumin and calcium are normal Urinalysis is ordered Chest x-ray by my read no infiltrate Acute displaced femoral neck fracture on the right is seen by x-ray. EKG by my read demonstrates sinus rhythm, normal axis, small Q waves inferiorly Last echocardiogram December 2022 demonstrates preserved EF, 2/4 diastolic dysfunction A&P Assessment and plan (1) Closed fracture of neck of right femur: Patient with closed fracture of right femur. Unknown age but no presence of healing Orthopedic consult Pain control with oxycodone, Dilaudid for breakthrough pain Bedrest Ramona Discussed potential surgery with patient and guardian. Orthopedics will discuss as well and I note that a CT of her hip has been ordered. Check urinalysis (2) HTN (hypertension): Patient with history of hypertension. Continue all medications with the exception of MELANIE inhibitor, which we will hold preoperatively unless blood pressure is significantly high Plan Chronic pain. Oxycodone for pain. History of CHF. Hold Bumex until reassessment tomorrow. Does not appear significantly fluid overloaded at this time. Heparin for DVT prophylaxis. Surgery is relating to me likely operation on Saturday. SCDs will be used as well I have confirmed allow natural status. Attestations 2 Medical Necessity Statement*: Will need greater than 2 midnight stay for evaluation and treatment of right hip fracture Diagnoses Closed fracture of neck of right femur S72.001A HTN (hypertension) I10 Time Spent (min) 55
[2024-02-03 17:19] LABS: INR 0.96 (0.8-1.2); Partial Thromboplastin Time 22.8 SECONDS (23.9-36.7)
[2024-02-03 17:20] LABS: Alanine Aminotransferase 11 U/L (0-33); Albumin Level 3.7 g/dL (3.5-5.2); Alkaline Phosphatase 57 U/L (35-105); Anion Gap 14.5 (5-19); Aspartate Amino Transferase 15 U/L (0-32); Blood Urea Nitrogen 23 mg/dL (8-23); Carbon Dioxide 31 mmol/L (22-29); Chloride 97 mmol/L (98-107); Globulin 2.5 g/dL (1.3-4.6); Glucose 96 mg/dL (65-115); Osmolality Calculated 292 mOsm/kg (285-295); Potassium 3.5 mmol/L (3.5-5.1); Sodium 139 mmol/L (136-145); Total Bilirubin 0.3 mg/dL (0.15-1.2); Total Protein 6.2 g/dL (6.6-8.7)
--- NOTE | 2024-02-03 18:48 | PC.NURSE ---
PER DOCTOR REBOLLEDO TO HOLD HEPARIN UNTIL SURGERY. SEE MESSAGE TO NURSE WITH INSTRUCTIONS RESTATING DOCTOR REBOLLEDOS ORDER IN CHART ORDER HISTORY.
[2024-02-03] MEDS: atorvastatin 40 mg Tablet PO (18:53)
[2024-02-03] MEDS: sennosides-docusate Tablet 2 TAB PO (18:53)
[2024-02-03] MEDS: levETIRAcetam 500 mg Tablet PO (18:53)
[2024-02-03] MEDS: amlodipine 5 mg Tablet PO (18:53)
[2024-02-03] MEDS: carvedilol 6.25 mg Tablet PO (18:53)
[2024-02-03] MEDS: HYDROmorphone 1 mg/mL INJ 1 mL 0.5 MG SUBCUT (19:46)
--- NOTE | 2024-02-03 20:18 | PC.NURSE ---
Dr. Murphy ordered okay to give 21:00 SQ Heparin dose that is ordered. ALso ordered to make patient NPO at midnight.
[2024-02-03] MEDS: oxyCODONE 5 mg IR Tab/Cap PO (21:09)
[2024-02-03] MEDS: heparin 5,000 unit/mL INJ 1 mL 5000 UNIT SUBCUT (21:09)
--- NOTE | 2024-02-03 21:14 | PC.NURSE ---
Patient is able to tell me her name and date of . She is able to tell me that she is in the hospital, but cannot tell me the town/city we are in. Patient is able to tell me who the president is, but is not able to tell me the year. Patient is able to tell me that she is in the hospital because she has a broken hip.
[2024-02-03 21:48] LABS: Bilirubin Urine Neg (Negative); Blood Urine Neg (Negative); Glucose Urine UA Norm (Normal); Ketones Urine Negative (Negative); Leukocyte Esterase Urine Trace (Negative); Nitrate Urine Positive (Negative); Protein Urine Neg (Negative); Specific Gravity, Urine 1.015 (1.005-1.030); Urine Appearance Slightly Cloudy (CLEAR); Urine Color Yellow (Yellow); Urobilinogen Urine Neg (Negative); WBC Urine 21-50 /hpf (0-5); pH Urine 5 (5-7)
[2024-02-03 21:49] LABS: Add Urine Culture? Yes; Bacteria Urine 4+ /hpf; Mucus Urine 2+ /hpf; Squamous Epithelial Cell Urine 0-4 /hpf (0-5)
--- NOTE | 2024-02-03 23:10 | PC.NURSE ---
Staff member at [facility] states that patient requires Stuart lift and does not ambulate well. She states the patient had a bout of pneumonia and was wearing oxygen as needed at night but hasn't needed it for about a month. She states the patient refused the COVID and Flu vaccine and that she was unsure about the pneumonia vaccine. She stated the patient is normally oriented x4. She states the patient does not require any assistance with feedings and swallows pills whole.
[2024-02-04] VITALS (12 sets, daily range): BP systolic 103–145; BP diastolic 64–81; PULSE 83–94; RESP 12–20; TEMP 36.4–37; O2SAT 90–92
[2024-02-04] MEDS: oxyCODONE 5 mg IR Tab/Cap PO ×3 (05:22→19:57)
[2024-02-04 05:42] LABS: Basophils # 0.1 10^3/uL (0.0-0.1); Basophils % 0.5 %; Eosinophils # 0.1 10^3/uL (0.0-0.8); Eosinophils % 1.3 %; Hematocrit 41.2 % (36-47); Lymphocytes # 2.4 10^3/uL (0.8-4.8); Lymphocytes % 21.9 %; Mean Corpuscular Hemoglobin 34.3 pg (27-33); Mean Corpuscular Volume 103.8 fl (85-98); Mean Platelet Volume 9.7 fL (7.4-10.4); Monocytes # 1.2 10^3/uL (0.2-0.9); Monocytes % 10.5 %; Neutrophils # 7.14 10^3/uL (1.8-7.7); Neutrophils % 65.3 %; Nucleated Red Blood Cells % 0 %; Platelet Count 292 10^3/cmm (157-399); Red Blood Count 3.97 10^6/uL (3.85-5.65); Red Cell Distribution Width 12.6 % (12.1-15.1); White Blood Count 10.93 10^3/uL (3.29-11.43)
[2024-02-04 06:04] LABS: Anion Gap 14.9 (5-19); Blood Urea Nitrogen 18 mg/dL (8-23); Calcium 9.2 mg/dL (8.5-10.5); Carbon Dioxide 31 mmol/L (22-29); Chloride 100 mmol/L (98-107); Creatinine Clr Calc Pharmacy 45.5662; Glucose 118 mg/dL (65-115); Osmolality Calculated 297 mOsm/kg (285-295); Potassium 3.9 mmol/L (3.5-5.1); Sodium 142 mmol/L (136-145)
--- NOTE | 2024-02-04 07:50 | PM.CONSULT ---
Providers/Reason For Consult Consulting Physician/Specialty*: Hospitalist Reason for Consult*: Right hip fracture Attending Physician: Rufino Mcfadden MD Primary Care Provider: Rhonda Mcfadden MD History of Present Illness History of Present Illness Beckie Jean is a 88 year old female sustained a right hip fracture at some point. CT scan from last year shows the hip intact. She has no history of trauma. It does look like there might be some early stages of callus forming likely this is not an acute fracture. She is however having significant pain from it. Review of Systems General: Reports: 10 or more systems reviewed and unremarkable except in HPI and below Card: Denies: chest pain Resp: Denies: dyspnea Medications/Allergies Home Medications Medication Instructions Recorded Confirmed Last Taken Type cyanocobalamin (vitamin B-12) 1,000 mcg PO DAILY #30 caps 01/01/23 02/03/24 Unknown Rx 1,000 mcg capsule hydrocodone 5 mg-acetaminophen 325 1 tab PO Q8H PRN pain #7 tabs 01/28/23 02/03/24 Unknown Rx mg tablet acetaminophen 325 mg tablet 650 mg PO Q4H PRN Pain 02/04/23 02/03/24 Unknown History amlodipine 5 mg tablet 5 mg PO BID 02/04/23 02/03/24 Unknown History atorvastatin 40 mg tablet 40 mg PO BEDTIME 02/04/23 02/03/24 Unknown History bisacodyl 10 mg rectal suppository 10 mg [place] DAILY PRN Constipation 02/04/23 02/03/24 Unknown History (Dulcolax (bisacodyl)) carvedilol 6.25 mg tablet 6.25 mg PO BID 02/04/23 02/03/24 Unknown History cyanocobalamin (vitamin B-12) 1,000 mcg IM Q30D 02/04/23 02/03/24 Unknown History 1,000 mcg/mL injection solution levetiracetam 500 mg tablet 500 mg PO BID 02/04/23 02/03/24 Unknown History (Keppra) magnesium hydroxide 400 mg/5 mL 30 ml PO DAILY PRN Constipation 02/04/23 02/03/24 Unknown History oral suspension (Milk of Magnesia) sodium phosphates 19 gram-7 118 ml [place] DAILY PRN Constipation 02/04/23 02/03/24 Unknown History gram/118 mL enema (Fleet Enema) polyethylene glycol 3350 17 4 g PO DAILY 03/25/23 02/03/24 Unknown History gram/dose oral powder (Miralax) potassium chloride 20 mEq 20 meq PO DAILY 03/25/23 02/03/24 Unknown History tablet,extended release tramadol 50 mg tablet 50 mg PO Q6H PRN Pain 03/25/23 02/03/24 Unknown History tizanidine 2 mg capsule 2 mg PO BID PRN muscle spasticity 04/26/23 02/03/24 Unknown Rx #90 caps alprazolam 0.25 mg tablet 0.25 mg PO Q6H PRN Anxiety 09/28/23 02/03/24 Unknown History bumetanide 2 mg tablet 2 mg PO BID 09/28/23 02/03/24 Unknown History ondansetron HCl 4 mg tablet 4 mg PO Q4H PRN Nausea And Vomiting 09/28/23 02/03/24 Unknown History lactulose 10 gram/15 mL oral 15 ml PO DAILY constipation 02/03/24 02/03/24 Unknown History solution (Enulose) magnesium citrate 150 ml PO DAILY PRN Constipation 02/03/24 02/03/24 Unknown History risperidone 0.5 mg tablet 0.5 mg PO BID 02/03/24 02/03/24 Unknown History (Risperdal) Allergies Allergy/AdvReac Type Severity Reaction Status Date / Time aspirin Allergy ADR-Abdominal Verified 02/03/24 15:08 Pain Current Medications Generic Name Dose Route Start Last Admin Trade Name Freq PRN Reason Stop Dose Admin Amlodipine Besylate 5 mg 02/03/24 18:28 02/03/24 18:53 Amlodipine 5 Mg Tablet PO 5 mg BID [place] Administration Atorvastatin Calcium 40 mg 02/03/24 18:28 02/03/24 18:53 Atorvastatin 40 Mg Tablet PO 40 mg QPM [place] Administration Carvedilol 6.25 mg 02/03/24 18:28 02/03/24 18:53 Carvedilol 6.25 Mg Tablet PO 6.25 mg BID [place] Administration Heparin Sodium (Porcine) 5,000 unit 02/03/24 21:00 02/03/24 21:09 Heparin 5,000 Unit/Ml Inj 1 Ml SUBCUT 5,000 unit Q12H [place] Administration Levetiracetam 500 mg 02/03/24 18:28 02/03/24 18:53 Levetiracetam 500 Mg Tablet PO 500 mg BID [place] Administration Oxycodone HCl 5 mg 02/03/24 18:28 02/04/24 05:22 Oxycodone 5 Mg Ir Tab/Cap PO 5 mg Q4H PRN Administration PAIN Senna/Docusate Sodium 2 tab 02/03/24 18:28 02/03/24 18:53 Sennosides-Docusate Tablet PO 2 tab BID [place] Administration PFSH Acute PFSH: Medical History (Updated 02/04/24 @ 07:51 by Sanjeev Murphy DO) HTN (hypertension) Psychiatric care Metabolic encephalopathy Personality change Expressive aphasia Stroke TIA involving left internal carotid artery Syncope and collapse Candidal intertrigo Lumbar back pain Lumbar spinal stenosis Verruca vulgaris Blepharitis Establishing care with new doctor, encounter for Family History Other CAD (coronary artery disease) Cancer Social History Smoking and tobacco/nicotine status: never used tobacco/nicotine Alcohol intake: never Adopted: No Caregiver/support person: No Lives independently: No Household members: other Housing: [facility] Vitals/I&O/Wt Last Vital Signs Temp 97.5 F L 02/04/24 04:00 Pulse 89 02/04/24 06:00 Resp 18 02/04/24 05:22 BP 141/79 02/04/24 04:00 Pulse Ox 90 02/04/24 04:00 O2 Del Method Room Air 02/04/24 04:00 O2 Flow Rate 2 02/03/24 20:04 02/03/24 02/04/24 02/04/24 22:59 06:59 14:59 Output Total 100 / 100 100 / 200 Balance -100 / -100 -100 / -200 Weight last 48 hrs Weight 161 lb 9.6 oz Weight 162 lb 1.6 oz Physical Exam Narrative: Patient is currently in bed resting comfortably. Urinary Catheter Management: Greene: Cath Placed During This Visit: yes Reason for Continuing Indwelling Catheter: Required Immobilization for Trauma or Surgery or Anesthesia Urinary Catheter Date of Insertion: 02/03/24 Data 02/04/24 04:57 02/04/24 04:57 A&P Assessment and plan (1) Closed fracture of neck of right femur: Plan to do a right hip hemiarthroplasty tomorrow. N.p.o. after midnight Qualifiers: Encounter type: initial encounter Qualified Code(s): S72.001A - Fracture of unspecified part of neck of right femur, initial encounter for closed fracture Coding Level of Care Code Acute Code for Chg Fwd Diagnoses Closed fracture of neck of right femur, initial encounter S72.001A Encounter type: initial encounter
[2024-02-04] MEDS: sennosides-docusate Tablet 2 TAB PO ×2 (08:38→16:46)
[2024-02-04] MEDS: amlodipine 5 mg Tablet PO ×2 (08:39→16:45)
[2024-02-04] MEDS: levETIRAcetam 500 mg Tablet PO ×2 (08:39→16:46)
[2024-02-04] MEDS: heparin 5,000 unit/mL INJ 1 mL 5000 UNIT SUBCUT ×2 (08:39→19:57)
[2024-02-04] MEDS: carvedilol 6.25 mg Tablet PO ×2 (08:39→16:46)
--- NOTE | 2024-02-04 09:31 | PC.CHAP ---
Pastoral Care Encounter/Spiritual Assessment Type of Contact [] Declined die assembler visit [] Patient/Family/Request visit [] Outpatient visit [] Follow-up visit [] Physician referral [] Code/Alert [x] Routine visit [] Staff referral [] Actively dying [] Patient sleeping [] Family support [] [] Out of room [] Palliative care [] [] Receiving care in room [] Pre-surgical visit [] Trauma [] Long length of stay [] ICU visit [] Other: Relational/Emotional Strength [x] Patient feels connected with others/family/visitors/staff [] Distress [] Loneliness/isolation [] Abandonment Spirituality of Patient [x] Person of Sindhu [] Attends Yazdanism of their Sindhu [x] Believes in Prayer [] Reads Bible or Nondenominational materials [] There are Spiritual issues to be addressed Institutional Research Director Interventions [x] Prayer [x] Active listening [x] Non-anxious presence [x] Spiritual/emotional support [] Crisis/trauma care [] Spiritual counseling [] Bereavement support [] Provided bereavement packet [] Provided Bible/devotional materials [] Provided toy/stuffed animal, coloring book to patient or family member [] Provided Communion [] Anointing/[place] [] Salvation [x] Completed spiritual assessment [] Other: Impact on Illness or Injury [] Angry [] Fearful [] Anxious [] Often cries [] Exhaustion [] Unable to work [] Unable to attend methodist [] Unable to walk/stand [] Unable to read [] Unable to drive [] Unable to eat/drink [] Unable to sleep [] Unable to be with family [] Patient intubated [] Other: Summary Time spent with patient 5 min
--- NOTE | 2024-02-04 15:50 | P.PN_ITS ---
Subjective 2 Subjective: Surgery for hip fractures planned for tomorrow. Patient voices no complaints to me. Medications: Reviewed: Yes Vitals/I&O/Wt Last Vital Signs Temp 97.8 F 02/04/24 12:00 Pulse 94 02/04/24 14:00 Resp 18 02/04/24 12:57 BP 125/75 02/04/24 12:00 Pulse Ox 90 02/04/24 12:00 O2 Del Method Room Air 02/04/24 12:00 O2 Flow Rate 2 02/03/24 20:04 02/04/24 02/04/24 02/04/24 06:59 14:59 22:59 Intake Total 240 / 240 Output Total 100 / 200 Balance -100 / -200 240 / 240 Weight last 48 hrs Weight 73.301 kg Weight 73.527 kg Physical Exam 2 Narrative: General exam is a white female, complaining of pain Neck is supple Cardiovascular regular rate and rhythm with a 2/6 systolic murmur Lungs clear Abdomen is soft obese nontender. No obvious organomegaly exam is deferred Extremities show trace edema bilaterally. Right lower extremity is externally rotated and shortened Skin no rash Urinary Catheter Management: Greene: Cath Placed During This Visit: yes Reason for Continuing Indwelling Catheter: Required Immobilization for Trauma or Surgery or Anesthesia Urinary Catheter Date of Insertion: 02/03/24 Data 02/04/24 04:57 02/04/24 04:57 A&P Assessment and plan (1) Closed fracture of neck of right femur: Patient with closed fracture of right femur. Unknown age but no presence of healing. Likely subacute by CT scan done demonstrating comminuted fracture Orthopedic consult Pain control with oxycodone, Dilaudid for breakthrough pain Bedrest Greene Plan on surgery tomorrow Urinalysis with possible UTI, Rocephin initiated Qualifiers: Encounter type: initial encounter Qualified Code(s): S72.001A - Fracture of unspecified part of neck of right femur, initial encounter for closed fracture (2) HTN (hypertension): Patient with history of hypertension. Continue all medications with the exception of MELANIE inhibitor, which we will hold preoperatively unless blood pressure is significantly high Plan Chronic pain. Oxycodone for pain. History of CHF. Hold Bumex. Does not appear significantly fluid overloaded at this time. Heparin for DVT prophylaxis. Surgery is relating to me likely operation on Saturday. SCDs will be used as well I have confirmed allow natural status. Attestations 2 Medical Necessity Statement*: Needs continued hospitalization until definitive therapy for hip fracture. Diagnoses Closed fracture of neck of right femur, initial encounter S72.001A Encounter type: initial encounter HTN (hypertension) I10 Time Spent (min) 25
[2024-02-04] MEDS: sodium chloride 0.9% 1,000 ML 50 ML IV (16:44)
[2024-02-04] MEDS: cefTRIAXone 1,000 mg SDV 1000 MG IVP (16:44)
[2024-02-04] MEDS: atorvastatin 40 mg Tablet PO (16:46)
[2024-02-05] VITALS (15 sets, daily range): BP systolic 115–153; BP diastolic 67–88; PULSE 72–96; RESP 12–20; TEMP 36.2–36.9; O2SAT 90–97
[2024-02-05] MEDS: oxyCODONE 5 mg IR Tab/Cap PO ×2 (03:08→08:20)
[2024-02-05 04:53] LABS: Basophils % 0.4 %; Eosinophils # 0.2 10^3/uL (0.0-0.8); Eosinophils % 1.8 %; Hematocrit 38.9 % (36-47); Lymphocytes # 2.6 10^3/uL (0.8-4.8); Lymphocytes % 23.9 %; Mean Corpuscular HGB Conc 32.9 g/dL (30-55); Mean Corpuscular Hemoglobin 33.9 pg (27-33); Mean Corpuscular Volume 102.9 fl (85-98); Mean Platelet Volume 9.4 fL (7.4-10.4); Monocytes # 1.2 10^3/uL (0.2-0.9); Monocytes % 10.8 %; Neutrophils # 6.77 10^3/uL (1.8-7.7); Neutrophils % 62.6 %; Nucleated Red Blood Cells % 0 %; Platelet Count 264 10^3/cmm (157-399); Red Blood Count 3.78 10^6/uL (3.85-5.65); Red Cell Distribution Width 12.6 % (12.1-15.1)
[2024-02-05 05:11] LABS: Anion Gap 12.5 (5-19); Blood Urea Nitrogen 14 mg/dL (8-23); Calcium 8.8 mg/dL (8.5-10.5); Carbon Dioxide 29 mmol/L (22-29); Chloride 102 mmol/L (98-107); Creatinine Clr Calc Pharmacy 46.7618; Glucose 107 mg/dL (65-115); Osmolality Calculated 291 mOsm/kg (285-295); Potassium 3.5 mmol/L (3.5-5.1); Sodium 140 mmol/L (136-145)
[2024-02-05] MEDS: carvedilol 6.25 mg Tablet PO ×2 (08:21→17:40)
[2024-02-05] MEDS: levETIRAcetam 500 mg Tablet PO ×2 (08:21→17:40)
[2024-02-05] MEDS: amlodipine 5 mg Tablet PO ×2 (08:21→17:40)
[2024-02-05] MEDS: sennosides-docusate Tablet 2 TAB PO ×2 (08:21→17:40)
--- NOTE | 2024-02-05 09:48 | PC.NURSE ---
pt to pre-op/or at approx. 0911
[2024-02-05] MEDS: sodium chloride 0.9% 1,000 ML 30 ML IV ×2 (09:55→15:49)
[2024-02-05] MEDS: fentaNYL 50 mcg/mL INJ 2mL IVP (10:35)
[2024-02-05] MEDS: ondansetron 2 mg/ML SDV 2 mL 4 MG IVP (11:25)
--- NOTE | 2024-02-05 11:31 | P.ANESASSM_ITS ---
Pre-Anesthetic Assessment Height/Weight: Height 5 ft 2 in Weight 170 lb 3 oz Temp Pulse Resp BP Pulse Ox O2 Del Method O2 Flow Rate 98.3 F 96 18 153/88 94 Room Air 2 02/05/24 08:00 02/05/24 08:00 02/05/24 10:35 02/05/24 08:00 02/05/24 10:35 02/05/24 08:00 02/03/24 20:04 Preop Diagnosis: Hip fracture Operation Date: 02/05/24 11:30 Proposed Procedures p Right Hip Hemiarthroplasty(Right) - Sanjeev Murphy, DO Was Beta Leslie taken within 24 hours: Yes Was Clonidine taken within 24 hours: N/A Last intake: Intake Last Liquid Date 02/05/24 Last Liquid Time 03:20 Last Solid Date 02/04/24 Last Solid Time 18:00 Social No alcohol and No tobacco Exam alert, clear to auscultation bilaterally and regular rate & rhythm Alert and oriented x 2 Airway Submandibular: within normal limits Cervical ROM: within normal limits Mallampati: Class III Dentition: other (Missing teeth) Anesthetic Plan ASA status: 3 Anesthesia: General Other: No prior issues with anesthesia Has not eaten in 2 days History of hypertension on carvedilol and amlodipine Takes chronic tramadol Dementia at baseline, family present Labs reviewed, hemoglobin 12.8 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 Plan for general anesthesia Medications/Allergies Home Medications Medication Instructions Recorded Confirmed Last Taken Type cyanocobalamin (vitamin B-12) 1,000 mcg PO DAILY #30 caps 01/01/23 02/03/24 Unknown Rx 1,000 mcg capsule hydrocodone 5 mg-acetaminophen 325 1 tab PO Q8H PRN pain #7 tabs 01/28/23 02/03/24 Unknown Rx mg tablet acetaminophen 325 mg tablet 650 mg PO Q4H PRN Pain 02/04/23 02/03/24 Unknown History amlodipine 5 mg tablet 5 mg PO BID 02/04/23 02/03/24 Unknown History atorvastatin 40 mg tablet 40 mg PO BEDTIME 02/04/23 02/03/24 Unknown History bisacodyl 10 mg rectal suppository 10 mg [place] DAILY PRN Constipation 02/04/23 02/03/24 Unknown History (Dulcolax (bisacodyl)) carvedilol 6.25 mg tablet 6.25 mg PO BID 02/04/23 02/03/24 Unknown History cyanocobalamin (vitamin B-12) 1,000 mcg IM Q30D 02/04/23 02/03/24 Unknown History 1,000 mcg/mL injection solution levetiracetam 500 mg tablet 500 mg PO BID 02/04/23 02/03/24 Unknown History (Keppra) magnesium hydroxide 400 mg/5 mL 30 ml PO DAILY PRN Constipation 02/04/23 02/03/24 Unknown History oral suspension (Milk of Magnesia) sodium phosphates 19 gram-7 118 ml [place] DAILY PRN Constipation 02/04/23 02/03/24 Unknown History gram/118 mL enema (Fleet Enema) polyethylene glycol 3350 17 4 g PO DAILY 03/25/23 02/03/24 Unknown History gram/dose oral powder (Miralax) potassium chloride 20 mEq 20 meq PO DAILY 03/25/23 02/03/24 Unknown History tablet,extended release tramadol 50 mg tablet 50 mg PO Q6H PRN Pain 03/25/23 02/03/24 Unknown History tizanidine 2 mg capsule 2 mg PO BID PRN muscle spasticity 04/26/23 02/03/24 Unknown Rx #90 caps alprazolam 0.25 mg tablet 0.25 mg PO Q6H PRN Anxiety 09/28/23 02/03/24 Unknown History bumetanide 2 mg tablet 2 mg PO BID 09/28/23 02/03/24 Unknown History ondansetron HCl 4 mg tablet 4 mg PO Q4H PRN Nausea And Vomiting 09/28/23 02/03/24 Unknown History lactulose 10 gram/15 mL oral 15 ml PO DAILY constipation 02/03/24 02/03/24 Unknown History solution (Enulose) magnesium citrate 150 ml PO DAILY PRN Constipation 02/03/24 02/03/24 Unknown History risperidone 0.5 mg tablet 0.5 mg PO BID 02/03/24 02/03/24 Unknown History (Risperdal) Allergies Allergy/AdvReac Type Severity Reaction Status Date / Time aspirin Allergy ADR-Abdominal Verified 02/03/24 15:08 Pain Current Medications Generic Name Dose Route Start Last Admin Trade Name Freq PRN Reason Stop Dose Admin Amlodipine Besylate 5 mg 02/03/24 18:28 02/05/24 08:21 Amlodipine 5 Mg Tablet PO 5 mg BID [place] Administration Atorvastatin Calcium 40 mg 02/03/24 18:28 02/04/24 16:46 Atorvastatin 40 Mg Tablet PO 40 mg QPM [place] Administration Carvedilol 6.25 mg 02/03/24 18:28 02/05/24 08:21 Carvedilol 6.25 Mg Tablet PO 6.25 mg BID [place] Administration Ceftriaxone Sodium 1,000 mg 02/04/24 16:00 02/04/24 16:44 Ceftriaxone 1,000 Mg Sdv IVP 1,000 mg Q24H [place] Administration Protocol Fentanyl 50 mcg 02/05/24 09:41 02/05/24 10:35 Fentanyl 50 Mcg/Ml Inj 2ml IVP 50 mcg Q10M PRN Administration Preop Pain Heparin Sodium (Porcine) 5,000 unit 02/03/24 21:00 02/05/24 07:45 Heparin 5,000 Unit/Ml Inj 1 Ml SUBCUT Not Given Q12H [place] Sodium Chloride 1,000 mls @ 50 mls/hr 02/04/24 16:00 02/04/24 16:44 Sodium Chloride 0.9% IV 50 mls/hr .Q20H [place] Administration Sodium Chloride 1,000 mls @ 30 mls/hr 02/05/24 09:45 02/05/24 09:55 Sodium Chloride 0.9% IV 02/06/24 09:44 30 mls/hr .Q24H [place] Administration Levetiracetam 500 mg 02/03/24 18:28 02/05/24 08:21 Levetiracetam 500 Mg Tablet PO 500 mg BID [place] Administration Ondansetron HCl 4 mg 02/05/24 09:41 02/05/24 11:25 Ondansetron 2 Mg/Ml Sdv 2 Ml IVP 4 mg Q5M PRN Administration NAUSEA AND VOMITING Oxycodone HCl 5 mg 02/03/24 18:28 02/05/24 08:20 Oxycodone 5 Mg Ir Tab/Cap PO 5 mg Q4H PRN Administration PAIN Senna/Docusate Sodium 2 tab 02/03/24 18:28 02/05/24 08:21 Sennosides-Docusate Tablet PO 2 tab BID [place] Administration [facility] Anesthesia Medical History (Updated 02/04/24 @ 07:51 by Sanjeev Murphy DO) HTN (hypertension) Psychiatric care Metabolic encephalopathy Personality change Expressive aphasia Stroke TIA involving left internal carotid artery Syncope and collapse Candidal intertrigo Lumbar back pain Lumbar spinal stenosis Verruca vulgaris Blepharitis Establishing care with new doctor, encounter for Family History Other CAD (coronary artery disease) Cancer Social History Smoking and tobacco/nicotine status: never used tobacco/nicotine Alcohol intake: never Adopted: No Caregiver/support person: No Lives independently: No Household members: other Housing: Group Home Data Anesthesia 02/05/24 04:39 02/05/24 04:39 Short CBC 02/03/24 02/04/24 02/05/24 Range/Units 16:35 04:57 04:39 WBC 12.02 H 10.93 10.80 (3.29-11.43) 10^3/uL Hgb 13.30 13.60 12.80 (11.27-16.99) g/dL Hct 39.7 41.2 38.9 (36-47) % MCV 102.6 H 103.8 H 102.9 H (85-98) fl Plt Count 267 292 264 (157-399) 10^3/cmm Neut % (Auto) 60.6 65.3 62.6 % Neut # (Auto) 7.28 7.14 6.77 (1.8-7.7) 10^3/uL BMP 02/03/24 02/04/24 02/05/24 16:35 04:57 04:39 Sodium 139 142 140 Potassium 3.5 3.9 3.5 Chloride 97 L 100 102 Carbon Dioxide 31 H 31 H 29 BUN 23 18 14 Creatinine 0.7 0.5 0.5 Glucose 96 118 H 107 Calcium 9.0 9.2 8.8 Liver Function 02/03/24 Range/Units 16:35 Total Bilirubin 0.3 (0.15-1.2) mg/dL AST 15 (0-32) U/L ALT 11 (0-33) U/L Alkaline Phosphatase 57 (35-105) U/L Albumin 3.7 (3.5-5.2) g/dL Urine 09/16/24 Range/Units 20:03 Urine Color Yellow (Yellow) Urine Appearance Slightly cloudy (CLEAR) Urine pH 5 (5-7) Ur Specific [place] 1.015 (1.005-1.030) Urine Protein Neg (Negative) Urine Glucose (UA) Norm (Normal) Urine Ketones Negative (Negative) Urine Nitrate Positive A (Negative) Urine Bilirubin Neg (Negative) Ur Leukocyte Esterase Trace H (Negative) Urine WBC 21-50 H (0-5) /hpf Coags 02/03/24 16:35 PT 13.10 INR 0.96 APTT 22.8 L Microbiology 02/03/24 20:03 Urine Culture - Preliminary Urine,Clean Catch Gram Negative Rods Gram Negative Rods#2 Cardiac Studies: 2 Echocardiogram 12/29/22
[2024-02-05] MEDS: ceFAZolin 2,000 mg SDV 2000 MG IVP ×2 (11:51→19:53)
--- NOTE | 2024-02-05 12:21 | XRR_ITS ---
PROCEDURE INFORMATION: Exam: XR Right Hip Exam date and time: 02/05/2024 12:30 PM Age: 88 years old Clinical indication: Hip pain; Right hip; Additional info: Intra-op TECHNIQUE: Imaging protocol: Radiologic exam of the right hip. Views: 1 view hip with pelvis when performed. COMPARISON: CT hip RT wo con* [id number] 02/03/2024 5:56 PM FINDINGS: Bones/joints: There is a displaced right subcapital femoral neck fracture. Femoral head is appropriately aligned with the acetabulum. The femoral shaft is intact. The knee is partially imaged and is grossly unremarkable. Bones are diffusely osteopenic. Soft tissues: Unremarkable. Intraperitoneal space: The visible portion of the pelvis is intact. XR/XR hip RT 2-3V wo/w pel* [id number] IMPRESSION: 1. Displaced right subcapital femoral neck fracture. 2. Osteopenia.
[2024-02-05] MEDS: vancomycin 1,000 MG SDV 1000 MG XX (13:26)
--- NOTE | 2024-02-05 13:34 | P.PN_ITS ---
Subjective 2 Subjective: No complaints other than pain. Ready for surgery. Medications: Reviewed: Yes Vitals/I&O/Wt Last Vital Signs Temp 98.3 F 02/05/24 08:00 Pulse 96 02/05/24 08:00 Resp 18 02/05/24 10:35 BP 153/88 02/05/24 08:00 Pulse Ox 94 02/05/24 10:35 O2 Del Method Room Air 02/05/24 08:00 O2 Flow Rate 2 02/03/24 20:04 02/04/24 02/05/24 02/05/24 22:59 06:59 14:59 Intake Total 360 / 600 Output Total 450 / 450 450 / 900 Balance -90 / 150 -450 / -300 Weight last 48 hrs Weight 77.196 kg Weight 73.301 kg Weight 73.527 kg Physical Exam 2 Narrative: General exam is a white female, complaining of pain Neck is supple Cardiovascular regular rate and rhythm with a 2/6 systolic murmur Lungs clear Abdomen is soft obese nontender. No obvious organomegaly exam is deferred Extremities show trace edema bilaterally. Right lower extremity is externally rotated and shortened Skin no rash Urinary Catheter Management: Greene: Cath Placed During This Visit: yes Reason for Continuing Indwelling Catheter: Other Urinary Catheter Date of Insertion: 02/03/24 Data 02/05/24 04:39 02/05/24 04:39 Micro: Microbiology 02/03/24 20:03 Urine Culture - Preliminary Urine,Clean Catch Gram Negative Rods Gram Negative Rods#2 A&P Assessment and plan (1) Closed fracture of neck of right femur: Patient with closed fracture of right femur. Unknown age but no presence of healing. Likely subacute by CT scan done demonstrating comminuted fracture Orthopedic consult appreciated Pain control with oxycodone, Dilaudid for breakthrough pain Bedrest Greene Surgery today Urinalysis with possible UTI, Rocephin initiated. 2 colonies of gram-negative rods growing Qualifiers: Encounter type: initial encounter Qualified Code(s): S72.001A - Fracture of unspecified part of neck of right femur, initial encounter for closed fracture (2) HTN (hypertension): Patient with history of hypertension. Continue all medications with the exception of MELANIE inhibitor, which we will hold preoperatively unless blood pressure is significantly high Plan Chronic pain. Oxycodone for pain. History of CHF. Hold Bumex. Does not appear significantly fluid overloaded at this time. Heparin for DVT prophylaxis. Surgery is relating to me likely operation on Saturday. SCDs will be used as well I have confirmed allow natural status. Attestations 2 Medical Necessity Statement*: Needs continued hospital stay for definitive care of hip fracture Diagnoses Closed fracture of neck of right femur, initial encounter S72.001A Encounter type: initial encounter HTN (hypertension) I10 Time Spent (min) 25
--- NOTE | 2024-02-05 13:53 | XRR_ITS ---
PROCEDURE INFORMATION: Exam: XR Right Hip Exam date and time: 02/05/2024 2:17 PM Age: 88 years old Clinical indication: Device placement; Other: Right hip; Prior surgery; Surgery date: Post-operative (0-2 days); Additional info: Post op TECHNIQUE: Imaging protocol: Radiologic exam of the right hip. Views: 1 view hip with pelvis when performed. COMPARISON: CR XR hip LT 2-3V wo/w pel* [id number] 02/05/2024 12:30 PM FINDINGS: Bones/joints: Intact well-aligned right unipolar hip arthroplasty. No periprosthetic fracture. The left hip is unremarkable. The visible portion of the pelvis is intact. Soft tissues: There is edema and soft tissue gas lateral to the right hip. There are skin justin lateral to the right hip. XR/XR hip RT 1V wo/w pel [id number] IMPRESSION: Expected postoperative findings.
--- NOTE | 2024-02-05 14:02 | P.OP_ITS ---
Operative Report Date of procedure: February 05, 2024 Pre-op diagnosis: Right femoral neck fracture Post-op diagnosis: same Procedure done: Right hip hemiarthroplasty Surgeon: Sanjeev Murphy DO Estimated blood loss (mL): 25 Procedure: Right hip hemiarthroplasty Patient is brought to the operative suite after undergoing anesthesia was placed in the lateral decubitus position on the right side up. Patient then prepped draped normal sterile fashion. Incision was made over the lateral hip. IT band split modified Combs approach was used and abductors and capsule taken anteriorly. Were pieces of the femoral neck had started to heal to the anterior femur. These were rongeured off. The femoral neck cut was made possibly fingerbreadth above the lesser trochanter. And then the remains of the femoral head were removed this and measured to be 42. Once this was identified then a ttention was brought back to the femur. The top the femur was opened with the bone cutter followed by the canal finder followed by lateralizer. And then the canal was broached to 4 mm stem. Cement was then inserted and a 4 mm stem was placed and held for 15 minutes. The 14 mm head with negative for length was placed onto the stem. The hip was reduced felt to be stable in all ranges of motion. Wounds irrigated vancomycin powder was placed in the abductors and capsule repaired followed by closure of the wound the IT band and wound with Vicryl and justin. Sterile dressings were applied and patient was transferred to the PACU in stable condition.
--- NOTE | 2024-02-05 14:46 | ANE.PACU2 ---
Inpatient post-anesthesia follow up: Airway intact: Yes Vital signs: Temperature 97.2 F Pulse Rate 81 Respiratory Rate 18 Blood Pressure 142/69 Pulse Oximetry 97 Oxygen Delivery Me thod Room Air Oxygen Flow Rate 6 Fraction of Inspir ed Oxygen Hydration adequate: Yes Nausea and vomiting: No Pain level: 1 Mental status: Baseline
[2024-02-05] MEDS: cefTRIAXone 1,000 mg SDV 1000 MG IVP (15:46)
[2024-02-05] MEDS: cetylpyridinium Lozenge 1 EACH MUCOUS MEM (15:48)
[2024-02-05] MEDS: atorvastatin 40 mg Tablet PO (17:40)
[2024-02-05] MEDS: HYDROmorphone 1 mg/mL INJ 1 mL 0.5 MG IVP (19:54)
[2024-02-05] MEDS: heparin 5,000 unit/mL INJ 1 mL 5000 UNIT SUBCUT (21:20)
[2024-02-05] MEDS: sodium chloride 0.9% 1,000 ML 50 ML IV (21:22)
[2024-02-06] VITALS (9 sets, daily range): BP systolic 109–129; BP diastolic 66–75; PULSE 81–90; RESP 16–17; TEMP 36.9–37.1; O2SAT 93–96
[2024-02-06 03:29] LABS: Basophils % 0.1 %; Lymphocytes % 8.4 %; Mean Corpuscular HGB Conc 33.2 g/dL (30-55); Mean Corpuscular Hemoglobin 34.6 pg (27-33); Mean Corpuscular Volume 104.2 fl (85-98); Mean Platelet Volume 9.8 fL (7.4-10.4); Monocytes # 1.1 10^3/uL (0.2-0.9); Monocytes % 8.7 %; Neutrophils # 9.99 10^3/uL (1.8-7.7); Neutrophils % 82.3 %; Nucleated Red Blood Cells % 0 %; Platelet Count 254 10^3/cmm (157-399); Red Blood Count 3.55 10^6/uL (3.85-5.65); Red Cell Distribution Width 12.6 % (12.1-15.1); White Blood Count 12.13 10^3/uL (3.29-11.43)
[2024-02-06] MEDS: ceFAZolin 2,000 mg SDV 2000 MG IVP (03:30)
[2024-02-06] MEDS: oxyCODONE 5 mg IR Tab/Cap PO ×3 (03:42→14:04)
[2024-02-06 03:48] LABS: Alanine Aminotransferase 10 U/L (0-33); Albumin Level 3.3 g/dL (3.5-5.2); Alkaline Phosphatase 57 U/L (35-105); Anion Gap 13.8 (5-19); Aspartate Amino Transferase 14 U/L (0-32); Blood Urea Nitrogen 11 mg/dL (8-23); Calcium 9.1 mg/dL (8.5-10.5); Carbon Dioxide 27 mmol/L (22-29); Chloride 107 mmol/L (98-107); Creatinine Clr Calc Pharmacy 46.7618; Globulin 2.4 g/dL (1.3-4.6); Glucose 137 mg/dL (65-115); Osmolality Calculated 300 mOsm/kg (285-295); Potassium 3.8 mmol/L (3.5-5.1); Sodium 144 mmol/L (136-145); Total Bilirubin 0.2 mg/dL (0.15-1.2); Total Protein 5.7 g/dL (6.6-8.7)
[2024-02-06 04:57] LABS: SARS Covid-2 Antigen Negative (Negative)
[2024-02-06] MEDS: heparin 5,000 unit/mL INJ 1 mL 5000 UNIT SUBCUT (09:42)
[2024-02-06] MEDS: levETIRAcetam 500 mg Tablet PO (09:43)
[2024-02-06] MEDS: sennosides-docusate Tablet 2 TAB PO (09:43)
[2024-02-06] MEDS: amlodipine 5 mg Tablet PO (09:43)
[2024-02-06] MEDS: carvedilol 6.25 mg Tablet PO (09:43)
[2024-02-06] MEDS: ALPRAZolam 0.5 mg Tablet 0.25 MG PO (09:47)
--- NOTE | 2024-02-06 09:53 | P.PN_ITS ---
Subjective 2 Subjective: Patient stated pain is improved since before surgery. Vitals/I&O/Wt Last Vital Signs Temp 98.4 F 02/06/24 07:50 Pulse 90 02/06/24 07:50 Resp 16 02/06/24 09:46 BP 125/75 02/06/24 07:50 Pulse Ox 94 02/06/24 07:50 O2 Del Method Nasal Cannula 02/06/24 07:50 O2 Flow Rate 2 02/05/24 20:00 02/05/24 02/06/24 02/06/24 22:59 06:59 14:59 Intake Total 1177 / 2277 Output Total 550 / 775 Balance 1177 / 2052 -550 / 1502 Weight last 48 hrs Weight 171 lb 5 oz Weight 170 lb 3 oz Physical Exam 2 Narrative: Sitting in bed comfortable Urinary Catheter Management: Greene: Cath Placed During This Visit: yes, but has since been removed by the nurse Reason for Continuing Indwelling Catheter: Decision to DC Catheter Urinary Catheter Date of Insertion: 02/03/24 Date Urinary Catheter Removed: 02/06/24 Time Urinary Catheter Discontinued: 06:27 Data 02/06/24 03:08 02/06/24 03:08 Micro: Microbiology 02/03/24 20:03 Urine Culture - Preliminary Urine,Clean Catch Gram Negative Rods Gram Negative Rods#2 A&P Assessment and plan (1) Closed fracture of neck of right femur: Patient is postop day #1 right hip hemiarthroplasty Up with physical therapy Weight-bear as tolerated Qualifiers: Encounter type: initial encounter Qualified Code(s): S72.001A - Fracture of unspecified part of neck of right femur, initial encounter for closed fracture Attestations 2 Medical Necessity Statement*: Per primary service Coding Level of Care Code Acute Code for Chg Fwd Diagnoses Closed fracture of neck of right femur, initial encounter S72.001A Encounter type: initial encounter
--- NOTE | 2024-02-06 11:01 | P.DS_ITS ---
Discharge Providers Date of Admission: 02/03/24 18:41 Date of Discharge: February 06, 2024 Attending Provider at Admission: Rufino Mcfadden MD Attending Provider at Discharge: Rufino Mcfadden MD Primary Care Provider: Rhonda Mcfadden MD Diagnoses at Discharge Discharge Diagnosis (1) Closed fracture of neck of right femur: Status: Acute Qualifiers: Encounter type: initial encounter Qualified Code(s): S72.001A - Fracture of unspecified part of neck of right femur, initial encounter for closed fracture Reason for Visit Reason for Visit: back/left hip pain. Hospital Course Hospital Course Patient presented from the [place] [facility] with a right hip fracture. This was thought to be acute versus subacute. No specific incident was noted. She is typically a [place] lift, and bedbound. Orthopedics evaluated, and recommended repair. Urine infection was noted and she was started on ceftriaxone. Repair occurred February 04 and this was tolerated well. Following day blood work did not demonstrate any concerning postoperative anemia. It was thought she could transfer back to the nursing facility for continued care. She will continue cefdinir at discharge, pending urine culture results. She will take Eliquis 2.5 mg twice daily for prevention of DVT for the next 4 weeks. Physical Exam Narrative: General Exam no distress Neck is supple Cardiovascular regular rate and rhythm Lungs clear Abdomen soft Surgical site right lower extremity clean and dry Urinary Catheter Management: Greene: Cath Placed During This Visit: yes, but has since been removed by the nurse Reason for Continuing Indwelling Catheter: Decision to DC Catheter Urinary Catheter Date of Insertion: 02/03/24 Date Urinary Catheter Removed: 02/06/24 Time Urinary Catheter Discontinued: 06:27 Discharge Data Studies Completed and Pending Completed Studies During Hospitalization Category Date Time Status CT hip RT wo con* [id number] Stat Cat Scan 02/03/24 17:15 Completed XR chest 1V portable [id number] Stat Exams 02/03/24 16:15 Completed XR hip RT 1V wo/w pel [id number] Routine Exams 02/05/24 13:53 Completed XR hip RT 2-3V wo/w pel* [id number] Routine Exams 02/05/24 12:21 Completed XR hip RT 2-3V wo/w pel* [id number] Stat Exams 02/03/24 15:07 Completed Pending at discharge Category Date Time Status C-arm Fluoroscopy [id number] Routine Exams 02/05/24 12:20 Ordered Urine Culture Stat Lab 02/03/24 20:03 Results Radiology Impressions Chest X-Ray 02/03/24 16:15 IMPRESSION: 1. No acute cardiopulmonary abnormality. If there is ongoing clinical suspicion for traumatic injury, consider correlation with CT. Hip CT 02/03/24 17:15 IMPRESSION: 1. Comminuted displaced fracture of the right femoral head/neck, possibly subacute. Correlation with history of trauma and orthopedic evaluation is recommended. 2. Apparent atrophic changes of the femoral head, possibly reflecting atrophic nonunion or sequela of prior resection. Hip/Pelvis X-Ray 02/05/24 12:21 IMPRESSION: 1. Displaced right subcapital femoral neck fracture. 2. Osteopenia. Hip X-Ray 02/05/24 13:53 IMPRESSION: Expected postoperative findings. Laboratory Results WBC 12.13 10^3/uL (3.29-11.43) H 02/06/24 03:08 RBC 3.55 10^6/uL (3.85-5.65) L 02/06/24 03:08 Hgb 12.30 g/dL (11.27-16.99) 02/06/24 03:08 Hct 37.0 % (36-47) 02/06/24 03:08 MCV 104.2 fl (85-98) H 02/06/24 03:08 MCH 34.6 pg (27-33) H 02/06/24 03:08 MCHC 33.2 g/dL (30-55) 02/06/24 03:08 RDW 12.6 % (12.1-15.1) 02/06/24 03:08 Plt Count 254 10^3/cmm (157-399) 02/06/24 03:08 MPV 9.8 fL (7.4-10.4) 02/06/24 03:08 Neut % (Auto) 82.3 % 02/06/24 03:08 Lymph % (Auto) 8.4 % 02/06/24 03:08 Mora % (Auto) 8.7 % 02/06/24 03:08 Eos % (Auto) 0.0 % 02/06/24 03:08 Baso % (Auto) 0.1 % 02/06/24 03:08 Neut # (Auto) 9.99 10^3/uL (1.8-7.7) H 02/06/24 03:08 Lymph # (Auto) 1.0 10^3/uL (0.8-4.8) 02/06/24 03:08 [place]a # (Auto) 1.1 10^3/uL (0.2-0.9) H 02/06/24 03:08 Eos # (Auto) 0.0 10^3/uL (0.0-0.8) 02/06/24 03:08 Baso # (Auto) 0.0 10^3/uL (0.0-0.1) 02/06/24 03:08 Nucleated RBC % (auto) 0 % 02/06/24 03:08 Nucleated RBCs # 0.0 /100WBC 02/06/24 03:08 PT 13.10 SECONDS (12.1-14.9) 02/03/24 16:35 INR 0.96 (0.8-1.2) 02/03/24 16:35 APTT 22.8 SECONDS (23.9-36.7) L 02/03/24 16:35 Sodium 144 mmol/L (136-145) 02/06/24 03:08 Potassium 3.8 mmol/L (3.5-5.1) 02/06/24 03:08 Chloride 107 mmol/L (98-107) 02/06/24 03:08 Carbon Dioxide 27 mmol/L (22-29) 02/06/24 03:08 Anion Gap 13.8 (5-19) 02/06/24 03:08 BUN 11 mg/dL (8-23) 02/06/24 03:08 Creatinine 0.5 mg/dL (0.5-0.9) 02/06/24 03:08 GFR Calculation Not Reportable 02/06/24 03:08 Glucose 137 mg/dL (65-115) H 02/06/24 03:08 Calculated Osmolality 300 mOsm/kg (285-295) H 02/06/24 03:08 Calcium 9.1 mg/dL (8.5-10.5) 02/06/24 03:08 Total Bilirubin 0.2 mg/dL (0.15-1.2) 02/06/24 03:08 AST 14 U/L (0-32) 02/06/24 03:08 ALT 10 U/L (0-33) 02/06/24 03:08 Alkaline Phosphatase 57 U/L (35-105) 02/06/24 03:08 Total Protein 5.7 g/dL (6.6-8.7) L 02/06/24 03:08 Albumin 3.3 g/dL (3.5-5.2) L 02/06/24 03:08 Globulin 2.4 g/dL (1.3-4.6) 02/06/24 03:08 Urine Color Yellow (Yellow) 02/03/24 20:03 Urine Appearance Slightly cloudy (CLEAR) 02/03/24 20:03 Urine pH 5 (5-7) 02/03/24 20:03 Ur Specific [place] 1.015 (1.005-1.030) 02/03/24 20:03 Urine Protein Neg (Negative) 02/03/24 20:03 Urine Glucose (UA) Norm (Normal) 02/03/24 20:03 Urine Ketones Negative (Negative) 02/03/24 20:03 Urine Blood Neg (Negative) 02/03/24 20:03 Urine Nitrate Positive (Negative) A 02/03/24 20:03 Urine Bilirubin Neg (Negative) 02/03/24 20:03 Urine Urobilinogen Neg mg/dL (Negative) 02/03/24 20:03 Ur Leukocyte Esterase Trace (Negative) H 02/03/24 20:03 Urine WBC 21-50 /hpf (0-5) H 02/03/24 20:03 Ur Squamous Epith Cells 0-4 /hpf (0-5) H 02/03/24 20:03 Amorphous Sediment Not Reportable 02/03/24 20:03 Urine Bacteria 4+ /hpf (NONE) H 02/03/24 20:03 Urine Mucus 2+ /hpf 02/03/24 20:03 SARS-CoV-2 Ag (Rapid) Negative (Negative) 02/06/24 03:39 Vitals Last Vital Signs Temp 98.4 F 02/06/24 07:50 Pulse 88 02/06/24 10:45 Resp 16 02/06/24 09:46 BP 125/75 02/06/24 07:50 Pulse Ox 96 02/06/24 10:45 O2 Del Method Nasal Cannula 02/06/24 10:45 O2 Flow Rate 2 02/06/24 10:45 Discharge Plan Discharge Patient Disposition: Home Condition: Stable Prescriptions: New oxycodone 5 mg Tablet 5 mg PO Q4H PRN (Reason: Pain) Qty: 20 0RF Eliquis 2.5 mg tablet 2.5 mg PO BID Qty: 60 0RF cefdinir 300 mg capsule 300 mg PO BID 5 Days Qty: 10 0RF Continued tramadol 50 mg tablet 50 mg PO Q6H PRN (Reason: Pain) polyethylene glycol 3350 [Miralax] 17 gram/dose powder 4 g PO DAILY potassium chloride 20 mEq tablet extended release 20 meq PO DAILY tizanidine 2 mg capsule 2 mg PO BID PRN (Reason: muscle spasticity) Qty: 90 0RF cyanocobalamin (vitamin B-12) 1,000 mcg capsule 1,000 mcg PO DAILY Qty: 30 0RF atorvastatin 40 mg Tablet 40 mg PO BEDTIME acetaminophen 325 mg Tablet 650 mg PO Q4H PRN (Reason: Pain) carvedilol 6.25 mg Tablet 6.25 mg PO BID Rx Instructions: must administer with a meal/food levetiracetam [Keppra] 500 mg Tablet 500 mg PO BID amlodipine 5 mg Tablet 5 mg PO BID magnesium hydroxide [Milk of Magnesia] 400 mg/5 mL Suspension 30 ml PO DAILY PRN (Reason: Constipation) bisacodyl [Dulcolax (bisacodyl)] 10 mg Suppository 10 mg OR DAILY PRN (Reason: Constipation) cyanocobalamin (vitamin B-12) 1,000 mcg/mL Solution 1,000 mcg IM Q30D Fleet Enema 19-7 gram/118 mL Enema 118 ml OR DAILY PRN (Reason: Constipation) magnesium citrate Solution 150 ml PO DAILY PRN (Reason: Constipation) Risperdal 0.5 mg Tablet 0.5 mg PO BID Enulose 10 gram/15 mL solution 15 ml PO DAILY bumetanide 2 mg tablet 2 mg PO BID ondansetron HCl 4 mg tablet 4 mg PO Q4H PRN (Reason: Nausea And Vomiting) alprazolam 0.25 mg tablet 0.25 mg PO Q6H PRN (Reason: Anxiety) Discontinued hydrocodone-acetaminophen 5-325 mg tablet 1 tab PO Q8H PRN (Reason: pain) Qty: 7 0RF Discharge Orders: Discharge Order (Routine); Ordered 02/06/24 Ordered By: Rufino Mcfadden Referrals: Rhonda Mcfadden MD [Primary Care Provider] - Discharge Diet: Usual diet Discharge Activity: Increase activity as tolerated Patient Instructions: Acute Wound Care (DC), Opioid Safety, Post Anesthesia Care Activity Restrictions/Additional Instructions: You are being discharged from the hospital today during which time you have been under the care of Dr. Murphy. You had a right femoral neck fracture. You were treated for this injury with right hip hemiarthroplasty. You may resume you normal diet (including any special diets as directed by your primary doctor) as well as your home medications. You should follow up with you primary doctor if you have any questions regarding medication you took prior to your stay in the hospital. You may take your pain medication as prescribed. After the first few days, take your pain medication as needed. Do not drive or drink alcohol while taking your pain medication. Your injury may increase your risk of developing a blood clot,or DVT, in your arm or leg. This could potentially dislodge and travel to your lungs and become a life threatening condition called apulmonary embolus,or PE. You have been prescribed Eliquis to be taken to prevent this. Frequent movement of the feet will also help prevent this from occurring. If you develop any new or worsening cough, chestpain, bloody sputum or shortness of breath, call 911 or go to the EmergencyRoom. Always keep your surgical incision/dressing clean and dry. If you experience increasing pain at your incision site, redness, swelling, increasing discharge, foul odors, or fevers (greater than 100.4), night sweats or chills you should call the office at the above number. If you feel this is an emergency you should be evaluated in the Emergency Department of a nearby hospital. Orthopedic Patient Instructions Summary: Weight Bearing: As tolerated Activity: As tolerated. Diet: Regular. Wound Care: Keep dressing clean and dry. Anticoagulation: Eliquis Pain Medication: Take only as needed. Ice, rest and elevation will be of great benefit. Please plan to follow-up justin Walton [] in [] weeks. You will need to call the clinic [phone] to schedule this visit. Thank you far allowing me to participate in your care. Do not hesitate to call the office with any questions or concerns. Take all medicine as prescribed Call for urinary culture results tomorrow Eliquis 2.5 mg twice daily should only be for 4 weeks See provider at nursing facility in 3 to 5 days. Discharge Attestations Time Spent in Discharge Care*: greater than 30 min Quality Metrics Clinical Quality Measures [ No reported AMI, CVA or VTE this stay] Coding Level of Care Code 16176 Total time (in minutes) for Discharge: 37 Diagnoses Closed fracture of neck of right femur, initial encounter S72.001A Encounter type: initial encounter
--- NOTE | 2024-02-06 12:02 | PC.OT ---
PER REPORT FROM [facility] IN ROUNDS THE PATIENT IS ABLE TO FEED HERSELF AND THEN TOTAL CARE FOR ALL OTHER ADLS; THIS IS BASELINE AND NO SKILLED OT REQUIRED AT THIS TIME.
== END 2024-02-06 15:14 | disposition skilled nursing facility (03) | DRG 522 ==
LOC: ER 16:48 → MEDSURG 18:41
PROVIDERS: Orthopaedic Surgery; Admitting Provider Internal Medicine; Emergency Provider Emergency Medicine; PCP Family Medicine; Visit Provider Internal Medicine
PROC: 0SRR0JZ Replacement of Right Hip Joint, Femoral Surface with Synthetic Substitute, Open Approach (ICD-10-PCS; CPT 27125; principal; 2024-02-05 11:00)
DX: S72.001A Fracture of unspecified part of neck of right femur, initial encounter for closed fracture (principal); X58.XXXA Exposure to other specified factors, initial encounter; G89.29 Other chronic pain; M54.50 Low back pain, unspecified; G40.909 Epilepsy, unspecified, not intractable, without status epilepticus; J44.9 Chronic obstructive pulmonary disease, unspecified; I11.0 Hypertensive heart disease with heart failure; I50.9 Heart failure, unspecified; F41.9 Anxiety disorder, unspecified; F03.90 Unspecified dementia, unspecified severity, without behavioral disturbance, psychotic disturbance, mood disturbance, and anxiety; Z86.73 Personal history of transient ischemic attack (TIA), and cerebral infarction without residual deficits; Z11.52 Encounter for screening for COVID-19
CPT/HCPCS: 36415; 51702; 71045; 73501; 73502; 73700; 80048; 80053; 81001; 85025; 85610; 85730; 87077; 87086; 87186; 87426; 93005; 96372; 96374; 96375; 97161; 99285; C1776; J0690; J0696; J1100; J1170; J1644; J2270; J2405; J2704; J3010; J3370; J3490; J7030

== ENCOUNTER → 2024-02-20 15:28 | Outpatient (BNVA) | payer MEDICARE, OTHER, MEDICAID, SELFPAY | PROVIDERS: PCP Family Medicine; Visit Provider Orthopaedic Surgery | DX: Z09 Encounter for follow-up examination after completed treatment for conditions other than malignant neoplasm (principal); S72.001A Fracture of unspecified part of neck of right femur, initial encounter for closed fracture; X58.XXXA Exposure to other specified factors, initial encounter | CPT/HCPCS: 99024 ==

== ENCOUNTER → 2024-03-12 13:00 | Outpatient (BNVA) | payer MEDICARE, OTHER, MEDICAID, SELFPAY | PROVIDERS: PCP Family Medicine; Visit Provider Orthopaedic Surgery | DX: S72.001A Fracture of unspecified part of neck of right femur, initial encounter for closed fracture (principal); X58.XXXA Exposure to other specified factors, initial encounter | CPT/HCPCS: 99024 ==

== ENCOUNTER 2024-04-23 12:47 | Outpatient (CLI) | payer MEDICARE, OTHER, MEDICAID, SELFPAY ==
--- NOTE | 2024-04-23 13:04 | XR_ITS ---
WS: [id number] XR hip RT 2-3V wo/w pel* [id number] REASON FOR EXAM: hip fx FINDINGS: Total right hip arthroplasty. Components of the arthroplasty are intact and in proper position and alignment unchanged compared to 03/12/2024. No bone abnormality. XR/XR hip RT 2-3V wo/w pel* [id number] IMPRESSION: Stable total right hip arthroplasty.
== END 2024-04-23 12:48 | disposition home or self-care (01) ==
LOC: RAD 12:50
PROVIDERS: PCP Family Medicine; Visit Provider Orthopaedic Surgery
DX: S72.001A Fracture of unspecified part of neck of right femur, initial encounter for closed fracture (principal); Z96.641 Presence of right artificial hip joint; X58.XXXA Exposure to other specified factors, initial encounter
CPT/HCPCS: 73502; 99024

== ENCOUNTER 2024-05-02 11:41 | Emergency (ER) | payer MEDICARE, OTHER, MEDICAID, SELFPAY ==
--- NOTE | 2024-05-02 11:42 | XRR_ITS ---
PROCEDURE INFORMATION: Exam: XR Chest Exam date and time: 05/02/2024 12:09 PM Age: 88 years old Clinical indication: Patient HX: PT here via EMS from [facility] with C/O SOB. Nursing staff at [facility] reports PT had cough starting 3 days ago, PT was put on 3 L nc this morning. PT has antibiotics for 3 days. alf staff reports n/v. TECHNIQUE: Imaging protocol: Radiologic exam of the chest. Views: 1 view. COMPARISON: 1. CR XR chest 1V portable [id number] 02/03/2024 4:41 PM 2. CR XR knee LT 3V* [id number] 08/13/2022 10:48 AM FINDINGS: Lungs: Shallow inspiration with low lung volumes. Patient appears rotated, tilted to the left. Slight additional opacity left lung base medially, lower hilar/infrahilar/perihilar suggesting infiltrate and/or atelectasis. Pleural spaces: Blunting left costophrenic angle suggesting small left pleural effusion which appears new, changed. No large or obvious pneumothorax seen. Heart/Mediastinum: Heart size appears within normal. Vasculature: Atherosclerotic disease. Bones/joints: Degenerative changes spine. Osteopenia. XR/XR chest 1V portable [id number] IMPRESSION: Slight additional opacity left lung base medially, lower hilar/infrahilar/perihilar suggesting infiltrate and/or atelectasis. Correlate for inflammation, pneumonia, or other process. Evidence of small left pleural effusion.
--- NOTE | 2024-05-02 11:45 | ED_ITS ---
HPI - SOB/Dyspnea 2 General: Chief Complaint: Shortness of Breath/Dyspnea Stated Complaint: cough Time Seen by Provider: 05/02/24 11:41 Source: patient and EMS Mode of arrival: EMS Limitations: no limitations History of Present Illness: HPI Narrative: 88-year-old female is here from alf per EMS patient's had increasing cough congestion for the last 3 to 4 days per alf staff they have had a lot of RSV she states she is just feels tired and ill she has had a cough she denies any vomiting or diarrhea. Said some increased mucus production as well Associated symptoms: Deny abdominal pain, chest pain, fever(s), nausea or vomiting Related Data Home Medications Medication Instructions Recorded Confirmed acetaminophen 325 mg tablet 650 mg PO Q4H PRN Pain 02/04/23 05/02/24 amlodipine 5 mg tablet 5 mg PO BID 02/04/23 05/02/24 atorvastatin 40 mg tablet 40 mg PO BEDTIME 02/04/23 05/02/24 bisacodyl 10 mg rectal suppository 10 mg [place] DAILY PRN Constipation 02/04/23 05/02/24 (Dulcolax (bisacodyl)) carvedilol 6.25 mg tablet 6.25 mg PO BID 02/04/23 05/02/24 cyanocobalamin (vitamin B-12) 1,000 mcg IM Q30D 02/04/23 05/02/24 1,000 mcg/mL injection solution levetiracetam 500 mg tablet 500 mg PO BID 02/04/23 05/02/24 (Keppra) magnesium hydroxide 400 mg/5 mL 30 ml PO DAILY PRN Constipation 02/04/23 05/02/24 oral suspension (Milk of Magnesia) sodium phosphates 19 gram-7 118 ml [place] DAILY PRN Constipation 02/04/23 05/02/24 gram/118 mL enema (Fleet Enema) polyethylene glycol 3350 17 4 g PO DAILY 03/25/23 05/02/24 gram/dose oral powder (Miralax) potassium chloride 20 mEq 20 meq PO DAILY 03/25/23 05/02/24 tablet,extended release tramadol 50 mg tablet 50 mg PO Q6H PRN Pain 03/25/23 05/02/24 bumetanide 2 mg tablet 2 mg PO BID 09/28/23 05/02/24 ondansetron HCl 4 mg tablet 4 mg PO Q4H PRN Nausea And Vomiting 09/28/23 05/02/24 lactulose 10 gram/15 mL oral 15 ml PO DAILY constipation 02/03/24 05/02/24 solution (Enulose) magnesium citrate 150 ml PO DAILY PRN Constipation 02/03/24 05/02/24 risperidone 0.5 mg tablet 0.5 mg PO BID 02/03/24 05/02/24 (Risperdal) Lactobacillus acidophilus 1 1,000 mmu cells PO DAILY 05/02/24 05/02/24 billion cell capsule (Probiotic Gold Acidophilus) albuterol sulfate 2.5 mg/3 mL 2.5 mg inhalation Q4H PRN 05/02/24 05/02/24 (0.083 %) solution for nebulization Shortness Of Breath benzonatate 100 mg capsule 100 mg PO TID 05/02/24 05/02/24 doxycycline hyclate 100 mg capsule 100 mg PO BID 05/02/24 05/02/24 Previous Rx's Medication Instructions Recorded cyanocobalamin (vitamin B-12) 1,000 mcg PO DAILY #30 caps 01/01/23 1,000 mcg capsule tizanidine 2 mg capsule 2 mg PO BID PRN muscle spasticity 04/26/23 #90 caps apixaban 2.5 mg tablet (Eliquis) 2.5 mg PO BID #60 tabs 02/06/24 oxycodone 5 mg tablet 5 mg PO Q4H PRN Pain #20 tabs 02/06/24 Allergies Allergy/AdvReac Type Severity Reaction Status Date / Time aspirin Allergy ADR-Abdominal Verified 04/23/24 13:47 Pain Review of Systems 2 Const: Reports: body aches, fatigue and malaise; Denies: fever(s) or chills Eyes: Denies: blurry vision or eye discomfort ENMT: Reports: nasal congestion; Denies: throat pain or dental pain Card: Denies: chest pain Resp: Reports: dyspnea and productive cough GI: Denies: abdominal pain, nausea, vomiting or diarrhea Musc: Denies: neck pain or back pain Skin/Breast: Denies: rash Neuro: Denies: headache(s) PFSH ED 2 PFSH: Medical History HTN (hypertension) Metabolic encephalopathy Personality change Expressive aphasia Stroke TIA involving left internal carotid artery Syncope and collapse Candidal intertrigo Lumbar back pain Lumbar spinal stenosis Verruca vulgaris Blepharitis Establishing care with new doctor, encounter for Family History Other CAD (coronary artery disease) Cancer Social History Smoking and tobacco/nicotine status: never used tobacco/nicotine Alcohol intake: never Adopted: No Caregiver/support person: No Lives independently: No Household members: other Housing: Care Home Physical Exam 2 Const: COMMON NORMALS: patient oriented x3 GENERAL APPEARANCE: frail appearing HENMT: COMMON NORMALS: normocephalic and atraumatic HEAD & SCALP: n ormocephalic and atraumatic Eye: COMMON NORMALS: Equal, round and reactive pupils present and EOMs intact bilaterally PUPIL: Yes Equal, round and reactive pupils present Neck/C-Spine: COMMON NORMALS: full ROM and supple Chest: COMMONS NORMALS: normal inspection of the chest Resp: COMMON NORMALS: No retractions and No use of accessory muscles A USCULTATION: crackles Cardio: COMMON NORMALS: regular rate, regular rhythm and No murmurs present (Cardio) RATE: regular rate RHYTHM: regular rhythm GI: COMMON NORMALS: Normal to inspection, nondistended, normoactive bowel sounds present, Soft to palpation, non-tender and no masses PALPATION: Yes Soft to palpation Extremity: COMMON NORMALS: normal to inspection and full ROM Neuro: COMMON NORMALS: patient oriented x3, moves all extremities and no focal motor deficits Psych: COMMON NORMALS: mental status grossly normal, Normal thought process present and cooperative THOUGHT PROCESS: Normal thought process present Skin: COMMON NORMALS: no rashes or lesions noted and no wounds GENERAL SKIN EXAM: no rashes or lesions noted Course 2 Vital Signs: Vital signs: Vital Signs Temperature 97.7 F 05/02/24 12:16 Pulse Rate 85 05/02/24 12:16 Respiratory Rate 20 H 05/02/24 12:16 Blood Pressure 123/57 05/02/24 12:16 Pulse Oximetry 92 05/02/24 12:16 Oxygen Delivery Me thod Room Air 05/02/24 12:16 MDM - SOB/Dyspnea Medical Decision Making Patient presents here with cough congestion did test positive for RSV she is well-appearing here she is stable for discharge follow-up PCP return if worsening Medical Records I reviewed the patient's medical records. Lab Data I reviewed the patient's lab results. 05/02/24 11:24 05/02/24 11:24 Labs/Radiology: Laboratory Results WBC 11.89 10^3/uL (3.29-11.43) H 05/02/24 11:24 RBC 4.05 10^6/uL (3.85-5.65) 05/02/24 11:24 Hgb 13.20 g/dL (11.27-16.99) 05/02/24 11:24 Hct 40.1 % (36-47) 05/02/24 11:24 MCV 99.0 fl (85-98) H 05/02/24 11:24 MCH 32.6 pg (27-33) 05/02/24 11:24 MCHC 32.9 g/dL (30-55) 05/02/24 11:24 RDW 12.7 % (12.1-15.1) 05/02/24 11:24 Plt Count 328 10^3/cmm (157-399) 05/02/24 11:24 MPV 9.7 fL (7.4-10.4) 05/02/24 11:24 Neut % (Auto) 68.1 % 05/02/24 11:24 Lymph % (Auto) 16.3 % 05/02/24 11:24 Elmore % (Auto) 12.4 % 05/02/24 11:24 Eos % (Auto) 2.4 % 05/02/24 11:24 Baso % (Auto) 0.3 % 05/02/24 11:24 Neut # (Auto) 8.09 10^3/uL (1.8-7.7) H 05/02/24 11:24 Lymph # (Auto) 1.9 10^3/uL (0.8-4.8) 05/02/24 11:24 Elmore # (Auto) 1.5 10^3/uL (0.2-0.9) H 05/02/24 11:24 Eos # (Auto) 0.3 10^3/uL (0.0-0.8) 12/14/24 11:24 Baso # (Auto) 0.0 10^3/uL (0.0-0.1) 05/02/24 11:24 Nucleated RBC % (auto) 0 % 05/02/24 11:24 Nucleated RBCs # 0.0 /100WBC 05/02/24 11:24 Sodium 136 mmol/L (136-145) 05/02/24 11:24 Potassium 3.6 mmol/L (3.5-5.1) 05/02/24 11:24 Chloride 93 mmol/L (98-107) L 05/02/24 11:24 Carbon Dioxide 33 mmol/L (22-29) H 05/02/24 11:24 Anion Gap 13.6 (5-19) 05/02/24 11:24 BUN 15 mg/dL (8-23) 05/02/24 11:24 Creatinine 0.8 mg/dL (0.5-0.9) 05/02/24 11:24 GFR Calculation Not Reportable 05/02/24 11:24 Glucose 94 mg/dL (65-115) 05/02/24 11:24 Calculated Osmolality 283 mOsm/kg (285-295) L 05/02/24 11:24 Calcium 9.2 mg/dL (8.5-10.5) 05/02/24 11:24 Total Bilirubin 0.4 mg/dL (0.15-1.2) 05/02/24 11:24 AST 13 U/L (0-32) 05/02/24 11:24 ALT 10 U/L (0-33) 05/02/24 11:24 Alkaline Phosphatase 83 U/L (35-105) 05/02/24 11:24 NT-Pro-B Natriuret Pep 172 pg/mL (0-450) 05/02/24 11:24 Total Protein 6.3 g/dL (6.6-8.7) L 05/02/24 11:24 Albumin 3.3 g/dL (3.5-5.2) L 05/02/24 11:24 Globulin 3.0 g/dL (1.3-4.6) 05/02/24 11:24 Coronavirus (PCR) Negative (Negative) 05/02/24 11:53 Influenza A (PCR) Negative (Negative) 05/02/24 11:53 Influenza Type B (PCR) Negative (Negative) 05/02/24 11:53 RSV (PCR) Positive (Negative) 05/02/24 11:53 All radiology interpretation(s) finalized by discharge Discharge Plan Discharge Patient Disposition: Home Clinical Impression: Respiratory syncytial virus (RSV) Condition: Stable Prescriptions: No Action tramadol 50 mg tablet 50 mg PO Q6H PRN (Reason: Pain) polyethylene glycol 3350 [Miralax] 17 gram/dose powder 4 g PO DAILY potassium chloride 20 mEq tablet extended release 20 meq PO DAILY tizanidine 2 mg capsule 2 mg PO BID PRN (Reason: muscle spasticity) Qty: 90 0RF cyanocobalamin (vitamin B-12) 1,000 mcg capsule 1,000 mcg PO DAILY Qty: 30 0RF atorvastatin 40 mg Tablet 40 mg PO BEDTIME acetaminophen 325 mg Tablet 650 mg PO Q4H PRN (Reason: Pain) carvedilol 6.25 mg Tablet 6.25 mg PO BID levetiracetam [Keppra] 500 mg Tablet 500 mg PO BID amlodipine 5 mg Tablet 5 mg PO BID magnesium hydroxide [Milk of Magnesia] 400 mg/5 mL Suspension 30 ml PO DAILY PRN (Reason: Constipation) bisacodyl [Dulcolax (bisacodyl)] 10 mg Suppository 10 mg [place] DAILY PRN (Reason: Constipation) cyanocobalamin (vitamin B-12) 1,000 mcg/mL Solution 1,000 mcg IM Q30D Fleet Enema 19-7 gram/118 mL Enema 118 ml [place] DAILY PRN (Reason: Constipation) magnesium citrate Solution 150 ml PO DAILY PRN (Reason: Constipation) risperidone [Risperdal] 0.5 mg Tablet 0.5 mg PO BID lactulose [Enulose] 10 gram/15 mL solution 15 ml PO DAILY oxycodone 5 mg Tablet 5 mg PO Q4H PRN (Reason: Pain) Qty: 20 0RF Eliquis 2.5 mg tablet 2.5 mg PO BID Qty: 60 0RF bumetanide 2 mg tablet 2 mg PO BID ondansetron HCl 4 mg tablet 4 mg PO Q4H PRN (Reason: Nausea And Vomiting) doxycycline hyclate 100 mg capsule 100 mg PO BID albuterol sulfate 2.5 mg /3 mL (0.083 %) solution for nebulization 2.5 mg inhalation Q4H PRN (Reason: Shortness Of Breath) benzonatate [Tessalon Perles] 100 mg Capsule 100 mg PO TID Probiotic Gold Acidophilus 1 billion cell Capsule 1,000 mmu cells PO DAILY Discharge Orders: Discharge ED (Routine); Ordered 05/02/24 Ordered By: John Hurd Referrals: Rhonda Mcfadden MD [Primary Care Provider] - 4-7 days Discharge Diet: Advance as tolerated Discharge Activity: Resume usual activity Patient Instructions: Respiratory Syncytial Virus (RSV) Coding Level of Care Code ED Window Machine Operator for Lawson Barron
[2024-05-02 12:01] LABS: Basophils % 0.3 %; Eosinophils # 0.3 10^3/uL (0.0-0.8); Eosinophils % 2.4 %; Hematocrit 40.1 % (36-47); Lymphocytes # 1.9 10^3/uL (0.8-4.8); Lymphocytes % 16.3 %; Mean Corpuscular HGB Conc 32.9 g/dL (30-55); Mean Corpuscular Hemoglobin 32.6 pg (27-33); Mean Platelet Volume 9.7 fL (7.4-10.4); Monocytes # 1.5 10^3/uL (0.2-0.9); Monocytes % 12.4 %; Neutrophils # 8.09 10^3/uL (1.8-7.7); Neutrophils % 68.1 %; Nucleated Red Blood Cells % 0 %; Platelet Count 328 10^3/cmm (157-399); Red Blood Count 4.05 10^6/uL (3.85-5.65); Red Cell Distribution Width 12.7 % (12.1-15.1); White Blood Count 11.89 10^3/uL (3.29-11.43)
[2024-05-02 12:16] VITALS: BP 123/57; PULSE 85; RESP 20; TEMP 36.5; O2SAT 92; BMI 23.3
--- NOTE | 2024-05-02 12:16 | PC.PHAR ---
Pt is from [facility] list sent without last dose given. Verified after lunch.
[2024-05-02 12:31] LABS: Alanine Aminotransferase 10 U/L (0-33); Albumin Level 3.3 g/dL (3.5-5.2); Alkaline Phosphatase 83 U/L (35-105); Anion Gap 13.6 (5-19); Aspartate Amino Transferase 13 U/L (0-32); Blood Urea Nitrogen 15 mg/dL (8-23); Calcium 9.2 mg/dL (8.5-10.5); Carbon Dioxide 33 mmol/L (22-29); Chloride 93 mmol/L (98-107); Creatinine Clr Calc Pharmacy 40.8881; Glucose 94 mg/dL (65-115); NT Pro B Type Natriuretic Pept 172 pg/mL (0-450); Osmolality Calculated 283 mOsm/kg (285-295); Potassium 3.6 mmol/L (3.5-5.1); Sodium 136 mmol/L (136-145); Total Bilirubin 0.4 mg/dL (0.15-1.2); Total Protein 6.3 g/dL (6.6-8.7)
[2024-05-02 12:39] LABS: Covid PCR NEGATIVE (Negative); Influenza A NEGATIVE (Negative); Influenza B NEGATIVE (Negative); Respiratory Syncytial Virus Ce POSITIVE (Negative)
[2024-05-02] MEDS: dexamethasone 10 mg/mL INJ IVP (13:04)
[2024-05-02 13:20] VITALS: BP 127/43; PULSE 78; RESP 16; O2SAT 93
[2024-05-02] MEDS: acetaminophen 325 mg Tablet 650 MG PO (14:22)
[2024-05-02 15:00] VITALS: PULSE 90; RESP 17; O2SAT 91
[2024-05-02] MEDS: HYDROcodone-acetaminophen 5-325 mg Tablet 1 TAB PO (15:42)
[2024-05-02 17:00] VITALS: BP 126/70; PULSE 86; O2SAT 94
[2024-05-02 19:00] VITALS: BP 124/70; PULSE 82; O2SAT 92
[2024-05-02 22:54] VITALS: BP 112/53; PULSE 82; RESP 16; O2SAT 94
== END 2024-05-02 22:55 | disposition home or self-care (01) ==
PROVIDERS: Emergency Provider Emergency Medicine; PCP Family Medicine
DX: J06.9 Acute upper respiratory infection, unspecified (principal); B97.4 Respiratory syncytial virus as the cause of diseases classified elsewhere; Z79.01 Long term (current) use of anticoagulants; Z11.52 Encounter for screening for COVID-19; Z86.73 Personal history of transient ischemic attack (TIA), and cerebral infarction without residual deficits; I10 Essential (primary) hypertension
CPT/HCPCS: 0241U; 71045; 80053; 83880; 85025; 96374; 99284; J1100